=== PATIENT | female | born 1935 | race Caucasian/White ===

== ENCOUNTER 2016-07-22 16:32 | Emergency (ER) | payer MEDICARE ==
[~2016-07-22] VITALS: Ht 162.6 cm; Wt 54.4 kg
[~2016-07-22 16:32] MED LIST: ASP325T PO; ATR20T PO; CALC-149 PO; DICL100G20 TOP; ENAL10TA PO; METO25TA2 PO; MTF500T PO; NEBI2.5T5 PO; NIAC250T17 PO; OMEG1CAP51 PO; TRM50T PO
--- NOTE | 2016-07-22 17:10 | ED General ---
General Chief Complaint: Cardiac/General Problems Stated Complaint: ELEVATED BLOOD PRESSURE Nursing Triage Note: patient reports hypertension and not feeling quite right. patient reports having a headache earlier in the afternoon Nursing Sepsis Screen: No Definite Risk Source of Information: Patient, Family Exam Limitations: Other (hard of hearing) History of Present Illness Time Seen by Provider: 16:50 Initial Comments Reports that earlier today she had an episode while at [facility] of having difficulty with speech. This was brief in did not last more than several minutes but she had a mild headache afterwards. She called her provider who told her to go to the ER. She ended up going to [facility] urgent care where they checked her blood pressure and found it to be high. Patient has known hypertension and has taken her meds as directed. She denies persistent speech problems or weakness. She has an appointment with her doctor in the morning (Dr. Camp). Doesn't report having an episode like this before. Timing/Duration: 4-6 Hours, Resolved Prior to Arrival, Changing Over Time, Gone Now Severity: Mild Associated Systoms: No Chest Pain, No Cough, No Fever/Chills, Headaches ( frontal across both eyes), No Nausea/Vomiting, No Shortness of Air, No Weakness Allergies and Home Medications Allergies Coded Allergies: No Known Drug Allergies (Unverified , 04/25/11) Home Medications Aspirin 325 Mg Tab, 325 MG PO DAILY, (Reported) Atorvastatin 20 Mg Tablet, 1 EACH PO HS, (Reported) 1/2 TAB DAILY Diclofenac Sod 100 Gm Gel, 400 GM TOP TID for 10 Days Prescribed by: TO SIMPSON on 09/23/131742 Enalapril Maleate 10 Mg Tablet, 10 MG PO BID, (Reported) Metformin Hcl 500 Mg Tablet, 0.5 EACH PO HS, (Reported) Nebivolol Hcl 2.5 Mg Tablet, 1 EACH PO DAILY, (Reported) Niacin 250 Mg Tablet, 500 MG PO D, (Reported) [place]-3 Fatty Acids/Fish Oil 1 Each Capsule, 1 EACH PO DAILY, (Reported) Tramadol Hcl 50 Mg Tab, 50 MG PO Q4-6HR PRN for PAIN, #20 FOR PAIN Prescribed by: TO SIMPSON on 09/23/131742 Constitutional: see HPI, No chills, No fever, No weakness EENTM: see HPI, No blurred vision, No double vision, No eye pain, No tearing, No vision loss Respiratory: No cough, short of breath, No wheezing Cardiovascular: see HPI, No chest pain, No edema Gastrointestinal: No abdominal pain, No nausea, No vomiting Genitourinary: no symptoms reported Musculoskeletal: no symptoms reported Psychiatric/Neurological: See HPI All Other Systems Reviewed Negative Unless Noted: Yes Past Ohynwut-Uasjtw-Mreddh Hx Patient Social History Alcohol Use: Denies Use Recreational Drug Use: No Smoking Status: Never a Smoker Recent Foreign Travel: No Contact w/Someone Who Travel: No Recent Infectious Disease Expo: No Recent Hopitalizations: No Immunizations Up To Date Tetanus Booster (TDap): Unknown Surgeries HX Surgeries: No Respiratory Hx Respiratory Disorders: No Cardiovascular Hx Cardiac Disorders: Yes Cardiac Disorders: Hypertension Gastrointestinal Hx Gastrointestinal Disorders: No Musculoskeletal Hx Musculoskeletal Disorders: No Endocrine Hx Endocrine Disorders: Yes Endocrine Disorders: Diabetes, Non-Insulin dep HEENT HX ENT Disorders: No Cancer Hx Cancer: No Psychosocial Hx Psychiatric Problems: No Integumentary HX Skin/Integumentary Disorder: No Blood Transfusions Hx Blood Disorders: No Reviewed Nursing Assessment Reviewed/Agree w Nursing PMH: Yes Family Medical History Significant Family History: Heart Disease, Hypertension Physical Exam Vital Signs Vital Sign - Last 12Hours 07/22/16 16:35 Temp 98.2 Pulse 73 Resp 18 B/P (MAP) 194/86 Pulse Ox 96 O2 Delivery Room Air Capillary Refill : Less Than 3 Seconds General Appearance: No Apparent Distress, WD/WN HEENT: PERRL/EOMI, Normal ENT Inspection, Pharynx Normal Neck: Non Tender, Supple Respiratory: Lungs Clear, Normal Breath Sounds Cardiovascular: Regular Rate, Rhythm, No Murmur Gastrointestinal: Non Tender, Soft Extremity: Normal Inspection, Normal Range of Motion, Non Tender, No Pedal Edema Neurologic/Psychiatric: Alert, Oriented x3, No Motor/Sensory Deficits, Normal 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, 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 Norm as Tested Skin: Normal Color, Warm/Dry Progress/Results/Core Measures Results/Orders Lab Results Laboratory Tests Test 07/22/16 17:00 Range/Units White Blood Count 4.8 4.3-11.0 10^3/uL Red Blood Count 4.15 L 4.35-5.85 10^6/uL Hemoglobin 12.8 11.5-16.0 G/DL Hematocrit 37 35-52 % Mean Corpuscular Volume 88 80-99 FL Mean Corpuscular Hemoglobin 31 25-34 PG Mean Corpuscular Hemoglobin Concent 35 32-36 G/DL Red Cell Distribution Width 12.9 10.0-14.5 % Platelet Count 204 130-400 10^3/uL Mean Platelet Volume 9.7 7.4-10.4 FL Neutrophils (%) (Auto) 55 42-75 % Lymphocytes (%) (Auto) 31 12-44 % Monocytes (%) (Auto) 11 0-12 % Eosinophils (%) (Auto) 3 0-10 % Basophils (%) (Auto) 0 0-10 % Neutrophils # (Auto) 2.6 1.8-7.8 X 10^3 Lymphocytes # (Auto) 1.5 1.0-4.0 X 10^3 Monocytes # (Auto) 0.5 0.0-1.0 X 10^3 Eosinophils # (Auto) 0.1 0.0-0.3 10^3/uL Basophils # (Auto) 0.0 0.0-0.1 10^3/uL D-Dimer 0.44 0.00-0.49 UG/ML Sodium Level 133 L 135-145 MMOL/L Potassium Level 4.7 3.6-5.0 MMOL/L Chloride Level 98 98-107 MMOL/L Carbon Dioxide Level 26 21-32 MMOL/L Anion Gap 9 5-14 MMOL/L Blood Urea Nitrogen 16 7-18 MG/DL Creatinine 1.17 0.60-1.30 MG/DL Estimat Glomerular Filtration Rate 44 BUN/Creatinine Ratio 14 Glucose Level 96 70-105 MG/DL Calcium Level 10.4 H 8.5-10.1 MG/DL Total Bilirubin 0.7 0.1-1.0 MG/DL Aspartate Amino Transf (AST/SGOT) 23 5-34 U/L Alanine Aminotransferase (ALT/SGPT) 14 0-55 U/L Alkaline Phosphatase 83 40-136 U/L Troponin I < 0.30 <0.30 NG/ML Total Protein 7.2 6.4-8.2 G/DL Albumin 4.5 3.2-4.5 G/DL My Orders Orders - NIKIA BABCOCK MD Ct Head Wo-R/O Stroke (07/22/16 16:57) Cbc With Automated Diff (07/22/16 16:57) Comprehensive Metabolic Panel (07/22/16 16:57) Ekg Tracing (07/22/16 16:57) Chest Pa/Lat (2 View) (07/22/16 16:57) Fibrin Degradation Products (07/22/16 16:57) Troponin I (07/22/16 16:57) Vital Signs/I&O Vital Sign - Last 12Hours 07/22/16 16:35 Temp 98.2 Pulse 73 Resp 18 B/P (MAP) 194/86 Pulse Ox 96 O2 Delivery Room Air Blood Pressure Mean: 122 Progress Note : Progress Note Seen and evaluated. Labs, chest x-ray, EKG and CT head ordered. Patient is 0 on stroke scale and passed dysphagia screening. I did give her 1 dose of her home blood pressure medicine of amlodipine 5 mg by mouth 1. She takes this once daily normally. She is in no acute distress currently. We did discuss different options for evaluation and decided that we would do monitor evaluation currently to evaluate causes or concerns related to hypertension. Monitor patient. 1753: No acute findings. Patient's blood pressure has decreased to 153/59. She remains without any symptoms. She will follow-up with her doctor in the morning. Discharged home with return precautions. Patient verbalized understanding instructions and agreement with plan. ECG Initial ECG Impression Date: Jul 22, 2016 Initial ECG Impression Time: 17:35 Initial ECG Rate: 70 Initial ECG Rhythm: Normal Sinus Initial ECG Intervals: Normal Initial ECG Impression: Normal Initial ECG Comparisson: Unchanged Comment Sinus rhythm with normal axis. No evidence of ST elevation TX. Similar to previous of 04/25/11. Interpreted by me. Diagnostic Imaging Diagonstic Imaging: CT Plain Films/CT/US/NM/MRI: head Comments NAME: SULLY UGALDE [facility] REC#: [id number] PT STATUS: REG ER : 1935 PHYSICIAN: NIKIA BABCOCK MD ADMIT DATE: 07/22/16/ER Draft Date of Exam:07/22/16 CT HEAD WO-R/O STROKE INDICATION: Hypertension. TECHNIQUE: CT head without contrast. FINDINGS: The ventricles are normal in size, shape, and position. There are no masses or hemorrhages. There are no extra-axial fluid collections. IMPRESSION: Negative CT head. Dictated on workstation # [id number] Dict: 07/22/161731 Trans: 07/22/161733 [id number] Interpreted by: NIKIA ROMAN Electronically signed by: Jamie Imaging: Xray Plain Films/CT/US/NM/MRI: chest Comments [facility] [place], [place] NAME: SULLY UGALDE [facility] REC#: [id number] PT STATUS: REG ER : 1935 PHYSICIAN: NIKIA BABCOCK MD ADMIT DATE: 07/22/16/ER Draft Date of Exam:07/22/16 CHEST PA/LAT (2 VIEW) INDICATION: Hypertension. EXAMINATION: PA and lateral chest. FINDINGS: Heart size and pulmonary vascularity are normal. Lungs are clear. There are no effusions or pneumothoraces. IMPRESSION: Negative chest. Dictated on workstation # [id number] Dict: 07/22/161730 Trans: 07/22/161733 [id number] Interpreted by: NIKIA ROMAN Electronically signed by: Departure Impression Impression: Primary Impression: Uncontrolled hypertension Disposition: 01 HOME, SELF-CARE Condition: Improved Departure-Patient Inst. Decision time for Depature: 17:43 Referrals: ADALBERTO MAE MD (PCP/Family) Primary Care Physician Patient Instructions: High Blood Pressure (DC) Add. Discharge Instructions: All discharge instructions reviewed with patient and/or family. Voiced understanding. Keep appointment with your Dr. in the morning. Return for any problems with speech, facial droop, weakness, vision or balance problems, nausea, vomiting, chest pain or breathing problems or any other concerns as needed. Continue home medications as directed. Copy Copies To 1: SYDNEE CAMP MD, TIMOTHY D MD Jul 22, 2016 17:10
[2016-07-22 17:14] LABS: BASOPHILS % (AUTO) 0 % (0-10); EOSINOPHILS # (AUTO) 0.1 10^3/uL (0.0-0.3); EOSINOPHILS % (AUTO) 3 % (0-10); LYMPHOCYTES # (AUTO) 1.5 X 10^3 (1.0-4.0); LYMPHOCYTES % (AUTO) 31 % (12-44); MEAN CORPUSCULAR HEMOGLOBIN 31 PG (25-34); MEAN CORPUSCULAR HGB CONC 35 G/DL (32-36); MEAN CORPUSCULAR VOLUME 88 FL (80-99); MEAN PLATELET VOLUME 9.7 FL (7.4-10.4); MONOCYTES # (AUTO) 0.5 X 10^3 (0.0-1.0); MONOCYTES % (AUTO) 11 % (0-12); NEUTROPHILS # (AUTO) 2.6 X 10^3 (1.8-7.8); NEUTROPHILS % (AUTO) 55 % (42-75); PLATELET COUNT 204 10^3/uL (130-400); RED BLOOD COUNT 4.15 10^6/uL (4.35-5.85); RED CELL DISTRIBUTION WIDTH 12.9 % (10.0-14.5); WHITE BLOOD COUNT 4.8 10^3/uL (4.3-11.0)
[2016-07-22 17:33] LABS: ALANINE AMINOTRANSFERASE 14 U/L (0-55); ALBUMIN 4.5 G/DL (3.2-4.5); ANION GAP 9 MMOL/L (5-14); ASPARTATE AMINO TRANSFERASE 23 U/L (5-34); BILIRUBIN,TOTAL 0.7 MG/DL (0.1-1.0); BLOOD UREA NITROGEN 16 MG/DL (7-18); BUN/CREATININE RATIO 14; CALCIUM 10.4 MG/DL (8.5-10.1); CARBON DIOXIDE 26 MMOL/L (21-32); CHLORIDE 98 MMOL/L (98-107); CREATININE SERUM 1.17 MG/DL (0.60-1.30); GFR ESTIMATED 44; GLUCOSE 96 MG/DL (70-105); POTASSIUM 4.7 MMOL/L (3.6-5.0); SODIUM 133 MMOL/L (135-145); TOTAL PROTEIN 7.2 G/DL (6.4-8.2)
--- NOTE | 2016-07-22 17:34 | Diagnostic Imaging Report ---
INDICATION: Hypertension. TECHNIQUE: CT head without contrast. FINDINGS: The ventricles are normal in size, shape, and position. There are no masses or hemorrhages. There are no extra-axial fluid collections. IMPRESSION: Negative CT head. Dictated by: Dictated on workstation # [id number]
--- NOTE | 2016-07-22 17:35 | Diagnostic Imaging Report ---
INDICATION: Hypertension. EXAMINATION: PA and lateral chest. FINDINGS: Heart size and pulmonary vascularity are normal. Lungs are clear. There are no effusions or pneumothoraces. IMPRESSION: Negative chest. Dictated by: Dictated on workstation # [id number]
[2016-07-22 17:39] LABS: TROPONIN I < 0.30 NG/ML (<0.30)
[2016-07-22 17:56] VITALS: BP 153/59
--- OUTSIDE RECORDS SUMMARY | 2016-08-24 15:05 | XMS REPORT | Continuity of Care Document ---
Author Author [facility] Organization [facility] Address Unknown Phone Unavailable Care Team Providers Care Health Unit Supervisor Name Role Phone ADALBERTO MAE MD PP Insurance Providers Payer Name Policy Number Subscriber Name Relationship Vito Jimenez Supp [id number] Sully Solares Ozzy Self / Same As Patient Wps Medicare [id number] Sully Solares Ozzy Self / Same As Patient Advance Directives Directive Response Recorded Date Advance Directives Y 11/09/12 7:38am Organ Donor Y 11/09/12 7:38am Problems No Known Problems or Medical conditions. Social History History Response Recorded Date/Time Alcohol Use Denies Use 11/09/12 7:38am Recreational Drug Use N 11/09/12 7:38am Allergies, Adverse Reactions, Alerts Allergen Type Severity Reaction Last Updated No Known Drug Allergies 04/25/11 Medications Medication Dose Units Route Sig Qty Days [place]-3 Fatty Acids/Fish Oil (Fish Oil 1,000 Mg Softgel) 1 Each PO DAILY Metoprolol Tartrate (Metoprolol Tartrate 25 Mg) 1 Tab PO BID Niacin 500 Mg PO D Metformin HCl (Metformin 500 Mg) 0.5 Each PO HS Enalapril Maleate 10 Mg PO BID Aspirin (Aspirin 325 Mg Tab) 325 Mg PO DAILY Calcium Citrate/Vitamin D3 (Citracal + D Maximum Caplet) 1 Each PO DAILY Atorvastatin Calcium (Lipitor 20MG) 1 Each PO HS Response Recorded Date/Time Status not known Unknown Results No Known Relevant Diagnostic Tests, Laboratory Data and/or Discharge Summary. Encounters Encounter Location Date/Time Departed Emergency Room [facility] 7:30am
--- OUTSIDE RECORDS SUMMARY | 2016-08-24 15:05 | XMS REPORT | Continuity of Care Document ---
Author Author [facility] Organization [facility] Address Unknown Phone Unavailable Allergies Active Description Code Type Severity Reaction Onset Reported/Identified Relationship to Patient Clinical Status Yes No Known Drug Allergies [id number] Drug Allergy Unknown N/ A 04/25/2011 Medications Problems Date Dx Coded Attending Type Code Diagnosis Diagnosed By 04/25/2011 Ot 250.00 DIAB ANGEL WO COMPL, TYPE II OR UNSPEC TY 04/25/2011 Ot 272.4 HYPERLIPIDEMIA NEC/NOS 04/25/2011 Ot 276.8 HYPOPOTASSEMIA 04/25/2011 Ot 401.9 HYPERTENSION NOS 04/25/2011 Ot 719.46 JOINT PAIN-L/LEG 04/25/2011 Ot 780.2 SYNCOPE AND COLLAPSE 11/09/2012 NIKIA BABCOCK MD Ot 250.00 DIAB ANGEL WO COMPL, TYPE II OR UNSPEC TY 11/09/2012 NIKIA BABCOCK MD Ot 272.0 PURE HYPERCHOLESTEROLEM 11/09/2012 NIKIA BABCOCK MD Ot 276.51 DEHYDRATION 11/09/2012 NIKIA BABCOCK MD Ot 401.9 HYPERTENSION NOS 11/09/2012 NIKIA BABCOCK MD Ot 780.4 DIZZINESS AND GIDDINESS 11/09/2012 NIKIA BABCOCK MD Ot 787.03 VOMITING ALONE 11/09/2012 NIKIA BABCOCK MD Ot 787.91 DIARRHEA 11/09/2012 NIKIA BABCOCK MD Ot 881.00 OPEN WOUND OF FOREARM 11/09/2012 NIKIA BABCOCK MD Ot E888.9 FALL NOS 11/09/2012 NIKIA BABCOCK MD Ot V15.88 HISTORY OF FALL 11/09/2012 NIKIA BABCOCK MD Ot V58.66 LONG-TERM (CURRENT) USE OF ASPIRIN 11/09/2012 NIKIA BABCOCK MD Ot V58.69 OT MED,LT,CURRENT USE 09/23/2013 SIMPSON, PETER J PCA Ot 250.00 DIAB ANGEL WO COMPL, TYPE II OR UNSPEC TY 09/23/2013 TO SIMPSON PCA Ot 715.36 LOC OSTEOARTH NOS-L/LEG 09/23/2013 TO SIMPSON PCA Ot 719.46 JOINT PAIN-L/LEG 04/24/2015 CARL ESCOTO Ot I65.23 04/25/2015 CARL ESCOTO Ot I65.23 07/22/2016 Ot 719.45 JOINT PAIN-PELVIS 07/22/2016 Ot 397.0 TRICUSPID VALVE DISEASE 07/22/2016 Ot 401.9 HYPERTENSION NOS 07/22/2016 Ot 416.8 CHR PULMON HEART DIS NEC 07/22/2016 Ot 424.0 MITRAL VALVE DISORDER 07/22/2016 Ot 780.2 SYNCOPE AND COLLAPSE 07/22/2016 Ot 719.07 JOINT EFFUSION-ANKLE 07/22/2016 Ot 729.5 PAIN IN LIMB 07/22/2016 ADALBERTO MAE MD Ot 812.41 SUPRCONDYL FX HUMERUS-CL 07/22/2016 ADALBERTO MAE MD Ot E000.8 OTHER EXTERNAL CAUSE STATUS 07/22/2016 ADALBERTO MAE MD Ot E849.0 ACCIDENT IN HOME 07/22/2016 ADALBERTO MAE MD Ot E888.9 FALL NOS 07/22/2016 ADALBERTO MAE MD Ot 719.06 JOINT EFFUSION-L/LEG 07/22/2016 ADALBERTO MAE MD Ot 959.7 LOWER LEG INJURY NOS 07/22/2016 ADALBERTO MAE MD Ot E000.8 OTHER EXTERNAL CAUSE STATUS 07/22/2016 ADALBERTO MAE MD Ot E849.0 ACCIDENT IN HOME 07/22/2016 ADALBERTO MAE MD Ot E888.9 FALL NOS 07/22/2016 ADALBERTO MAE MD Ot 719.06 JOINT EFFUSION-L/LEG 07/22/2016 ADALBERTO MAE MD Ot 727.51 POPLITEAL SYNOVIAL CYST 07/22/2016 ADALBERTO MAE MD Ot 822.0 FRACTURE PATELLA-CLOSED 07/22/2016 ADALBERTO MAE MD Ot E000.8 OTHER EXTERNAL CAUSE STATUS 07/22/2016 ADALBERTO MAE MD Ot E888.9 FALL NOS 07/22/2016 BOBO METZGER MD Ot 250.00 DIAB ANGEL WO COMPL, TYPE II OR UNSPEC TY 07/22/2016 BOBO METZGER MD Ot 397.0 TRICUSPID VALVE DISEASE 07/22/2016 BOBO METZGER MD Ot 401.9 HYPERTENSION NOS 07/22/2016 BOBO METZGER MD Ot 424.0 MITRAL VALVE DISORDER 07/22/2016 BOBO METZGER MD Ot 780.2 SYNCOPE AND COLLAPSE 07/22/2016 BOBO METZGER MD Ot 401.9 HYPERTENSION NOS 07/22/2016 BOBO METZGER MD, Ot 780.2 SYNCOPE AND COLLAPSE 07/22/2016 CARL ESCOTO Ot 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 07/23/2016 NIKIA BABCOCK MD, Ot E11.9 TYPE 2 DIABETES MELLITUS WITHOUT COMPLIC 07/23/2016 NIKIA BABCOCK MD, Ot I16.0 HYPERTENSIVE URGENCY 07/23/2016 NIKIA BABCOCK MD, Ot Z79.84 PET COUNSELOR (CURRENT) USE OF ORAL HYPOGLYC 07/23/2016 NIKIA BABCOCK MD, Ot Z79.899 OTHER PET COUNSELOR (CURRENT) DRUG THERAPY Procedures Results Test Result Range Complete blood count (CBC) with automated white blood cell (WBC) differential - 07/22/16 17:00 Blood leukocytes automated count (number/volume) 4.8 10*3/ uL 4.3-11.0 Blood erythrocytes automated count (number/volume) 4.15 10*6 /uL 4.35-5.85 Venous blood hemoglobin measurement (mass/volume) 12.8 g/dL 11.5-16.0 Blood hematocrit (volume fraction) 37 % 35-52 Automated erythrocyte mean corpuscular volume 88 [foz_us] 80-99 Automated erythrocyte mean corpuscular hemoglobin (mass per erythrocyte) 31 pg 25-34 Automated erythrocyte mean corpuscular hemoglobin concentration measurement ( mass/volume) 35 g/dL 32-36 Automated erythrocyte distribution width ratio 12.9 % 10.0-14.5 Automated blood platelet count (count/volume) 204 10*3/uL 130-400 Automated blood platelet mean volume measurement 9.7 [foz_us ] 7.4-10.4 Automated blood neutrophils/100 leukocytes 55 % 42-75 Automated blood lymphocytes/100 leukocytes 31 % 12-44 Blood monocytes/100 leukocytes 11 % 0-12 Automated blood eosinophils/100 leukocytes 3 % 0-10 Automated blood basophils/100 leukocytes 0 % 0-10 Blood neutrophils automated count (number/volume) 2.6 10*3 1.8-7.8 Blood lymphocytes automated count (number/volume) 1.5 10*3 1.0-4.0 Blood monocytes automated count (number/volume) 0.5 10*3 0.0-1.0 Automated eosinophil count 0.1 10*3/uL 0.0-0.3 Automated blood basophil count (count/volume) 0.0 10*3/uL 0.0-0.1 Fibrin D-dimer FEU measurement in platelet poor plasma (mass/volume) - 17:00 Fibrin D-dimer FEU measurement in platelet poor plasma (mass/volume) 0.44 ug/mL 0.00-0.49 Comprehensive metabolic panel - 07/22/16 17:00 Serum or plasma sodium measurement (moles/volume) 133 mmol/ L 135-145 Serum or plasma potassium measurement (moles/volume) 4.7 mmol/L 3.6-5.0 Serum or plasma chloride measurement (moles/volume) 98 mmol/ L 98-107 Carbon dioxide 26 mmol/L 21-32 Serum or plasma anion gap determination (moles/volume) 9 mmol/L 5-14 Serum or plasma urea nitrogen measurement (mass/volume) 16 mg/dL 7-18 Serum or plasma creatinine measurement (mass/volume) 1.17 mg /dL 0.60-1.30 Serum or plasma urea nitrogen/creatinine mass ratio 14 NRG Serum or plasma creatinine measurement with calculation of estimated glomerular filtration rate 44 NRG Serum or plasma glucose measurement (mass/volume) 96 mg/dL 70-105 Serum or plasma calcium measurement (mass/volume) 10.4 mg/ dL 8.5-10.1 Serum or plasma total bilirubin measurement (mass/volume) 0.7 mg/dL 0.1-1.0 Serum or plasma alkaline phosphatase measurement (enzymatic activity/volume) 83 U/L 40-136 Serum or plasma aspartate aminotransferase measurement (enzymatic activity/ volume) 23 U/L 5-34 Serum or plasma alanine aminotransferase measurement (enzymatic activity/volume ) 14 U/L 0-55 Serum or plasma protein measurement (mass/volume) 7.2 g/dL 6.4-8.2 Serum or plasma albumin measurement (mass/volume) 4.5 g/dL 3.2-4.5 Serum or plasma troponin i.cardiac measurement (mass/volume) - 07/22/16 17:00 Serum or plasma troponin i.cardiac measurement (mass/volume) < ng/mL <0.30 Encounters ACCT No. Visit Date/Time Discharge Status Pt. Type Provider Facility Loc./Unit Complaint [id number] 07/22/2016 16:33:00 2016 17:57:00 DIS Outpatient NIKIA BABCOCK MD [facility] ER ELEVATED BLOOD PRESSURE [id number] 09/23/2013 16:33:00 2013 18:30:00 DIS Emergency TO SIMPSON APRN [facility] ER R KNEE PAIN [id number] 03/09/2013 07:35:00 2012 23:59:59 CLS Outpatient BOBO METZGER MD [facility] RAD SYNCOPE,DM,HTN [id number] 03/03/2013 09:17:00 2012 23:59:59 CLS Outpatient BOBO METZGER MD [facility] CARD SYNCOPE,DM,HTN [id number] 01/19/2013 14:36:00 2012 23:59:59 CLS Outpatient ADALBERTO MAE MD [facility] RAD LT KNEE PAIN,FALL [id number] 01/19/2013 11:05:00 2012 23:59:59 CLS Outpatient ADALBERTO MAE MD [facility] RAD FALL,PAIN AND SWELLING [id number] 01/07/2013 09:48:00 2012 23:59:59 CLS Outpatient ADALBERTO MAE MD [facility] RAD FALL,RT ARM PAIN AND RT ARM SWELLING [id number] 11/09/2012 07:30:00 2012 09:49:00 DIS Emergency NIKIA BABCOCK MD [facility] ER FALL VOMITING/DIZZINESS [id number] 03/30/2015 11:54:00 ACT Outpatient CARL PECK [facility] RAD STENOSIS, HTN,HLP [id number] 06/22/2012 10:25:00 Document Registration [id number] 07/29/2011 09:42:00 Document Registration [id number] 05/01/2011 12:13:00 Document Registration [id number] 04/25/2011 08:04:00 Document Registration
== END 2016-07-22 17:57 | disposition home or self-care (01) ==
LOC: EDUNIT# 16:32 → ER 16:33
DX: I16.0 Hypertensive urgency (principal); E11.9 Type 2 diabetes mellitus without complications; Z79.84 Long term (current) use of oral hypoglycemic drugs; Z79.899 Other long term (current) drug therapy
CPT/HCPCS: 36415; 70450; 71020; 80053; 84484; 85025; 85379; 93005

== ENCOUNTER → 2016-09-22 | Outpatient (CLI) | payer MEDICARE | LOC: CARD 12:46 | PROVIDERS: ATTEND Physician Assistant | DX: I65.23 Occlusion and stenosis of bilateral carotid arteries (principal); I10 Essential (primary) hypertension; E78.2 Mixed hyperlipidemia; I49.5 Sick sinus syndrome | CPT/HCPCS: 93306 ==

== ENCOUNTER 2017-04-08 07:20 | Observation (INO) | payer MEDICARE, OTHER ==
[~2017-04-08] VITALS: Ht 160 cm; Wt 55.5 kg
--- OUTSIDE RECORDS SUMMARY | 2017-04-08 07:26 | XMS REPORT | Continuity of Care Document ---
Author Author [facility] Organization [facility] Address Unknown Phone Unavailable Allergies Active Description Code Type Severity Reaction Onset Reported/Identified Relationship to Patient Clinical Status Yes No Known Drug Allergies [id number] Drug Allergy Unknown N/A 04/25/2011 Medications There is no data. Problems Date Dx Coded Attending Type Code Diagnosis Diagnosed By 04/25/2011 Ot 250.00 DIAB ANGEL WO COMPL, TYPE II OR UNSPEC TY 04/25/2011 Ot 272.4 HYPERLIPIDEMIA NEC/NOS 04/25/2011 Ot 276.8 HYPOPOTASSEMIA 04/25/2011 Ot 401.9 HYPERTENSION NOS 04/25/2011 Ot 719.46 JOINT PAIN-L /LEG 04/25/2011 Ot 780.2 SYNCOPE AND COLLAPSE 11/09/2012 [...] MD Ot V58.69 OT MED,LT,CURRENT USE 09/23/2013 TO SIMPSON MENT[facility] HEALTH PROFESSIONAL Ot 250.00 DIAB ANGEL WO COMPL, TYPE II OR UNSPEC TY 09/23/2013 TO SIMPSON MENTAL HEALTH PROFESSIONAL Ot 715.36 LOC OSTEOARTH NOS-L/LEG 09/23/2013 TO SIMPSON MENTAL HEALTH PROFESSIONAL Ot 719.46 JOINT PAIN-L/LEG 04/24/2015 CARL ESCOTO Ot I65.23 04/25/2015 CARL ESCOTO Ot I65.23 07/22/2016 NIKIA BABCOCK MD Ot E11.9 TYPE 2 DIABETES MELLITUS WITHOUT COMPLIC 07/22/2016 SADIQ FELIPE, NIKIA Burnett Ot I16.0 HYPERTENSIVE URGENCY 07/22/2016 NIKIA BABCOCK MD Ot Z79.84 LAMINATION SPINNER (CURRENT) USE OF ORAL HYPOGLYC 07/22/2016 NIKIA BABCOCK MD Ot Z79.899 OTHER SKILLED NURSING (CURRENT) DRUG THERAPY 07/22/2016 Ot 719.45 JOINT PAIN- PELVIS 07/22/2016 Ot 397.0 TRICUSPID VALVE DISEASE 07/22/2016 [...] HYPERTENSION NOS 07/22/2016 BOBO METZGER MD Ot 780.2 SYNCOPE AND COLLAPSE 07/22/2016 CARL ESCOTO Ot 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 Results Test Result Range Complete blood count (CBC) with automated white blood cell (WBC) differential - 07/22/16 17:00 Blood leukocytes automated count (number/volume) 4.8 10*3/uL 4.3-11.0 Blood erythrocytes automated count (number/volume) 4.15 10*6/uL 4.35-5.85 Venous blood hemoglobin measurement (mass/volume) 12.8 [...] Automated blood platelet mean volume measurement 9.7 [foz_us] 7.4-10.4 Automated blood neutrophils/100 leukocytes 55 % [...] Serum or plasma sodium measurement (moles/volume) 133 mmol/L 135-145 Serum or plasma potassium measurement (moles/volume) 4.7 mmol/L 3.6-5.0 Serum or plasma chloride measurement (moles/volume) 98 mmol/L 98-107 Carbon dioxide 26 mmol/L 21-32 Serum or plasma anion gap determination (moles/volume) 9 mmol/L 5-14 Serum or plasma urea nitrogen measurement (mass/volume) 16 mg/dL 7-18 Serum or plasma creatinine measurement (mass/volume) 1.17 mg/dL 0.60-1.30 Serum or plasma urea nitrogen/creatinine mass ratio 14 NRG Serum or plasma creatinine measurement with calculation of estimated glomerular filtration rate 44 NRG Serum or plasma glucose measurement (mass/volume) 96 mg/dL 70-105 Serum or plasma calcium measurement (mass/volume) 10.4 mg/dL 8.5-10.1 Serum or plasma total bilirubin measurement [...] or plasma troponin i.cardiac measurement (mass/volume) < ng/ mL <0.30 Encounters ACCT No. Visit Date/Time Discharge Status Pt. Type Provider Facility Loc./Unit Complaint [id number] 09/22/2016 12:46:00 09/22/2016 23:59:59 CLS Outpatient CARL ESCOTO [facility] CARD I65.23,I10, E78.2 [id number] 07/22/2016 16:33:00 07/22/2016 17:57:00 DIS Emergency NIKIA BABCOCK MD [facility] ER ELEVATED BLOOD PRESSURE [id number] 03/30/2015 11:54:00 03/30/2015 23:59:59 CLS Outpatient CARL ESCOTO [facility] RAD STENOSIS, HTN ,HLP [id number] 09/23/2013 16:33:00 09/23/2013 18:30:00 DIS Emergency TO SIMPSON APRN [facility] ER R KNEE PAIN [id number] 03/09/2013 07:35:00 03/09/2013 23:59:59 CLS Outpatient BOBO METZGER MD [facility] RAD SYNCOPE,DM,HTN [id number] 03/03/2013 09:17:00 03/03/2013 23:59:59 CLS Outpatient BOBO METZGER MD [facility] CARD SYNCOPE,DM,HTN [id number] 01/19/2013 14:36:00 01/19/2013 23:59:59 CLS Outpatient ADALBERTO MAE MD [facility] RAD LT KNEE PAIN,FALL [id number] 01/19/2013 11:05:00 01/19/2013 23:59:59 CLS Outpatient ADALBERTO MAE MD [facility] RAD FALL,PAIN AND SWELLING [id number] 01/07/2013 09:48:00 01/07/2013 23:59:59 CLS Outpatient ADALBERTO MAE MD [facility] RAD FALL,RT ARM PAIN AND RT ARM SWELLING [id number] 11/09/2012 07:30:00 11/09/2012 09:49:00 DIS Emergency NIKIA BABCOCK MD [facility] ER FALL VOMITING/ DIZZINESS [id number] 04/08/2017 07:23:00 ACT Emergency NIKIA BABCOCK MD [facility] ER ABDOMINAL PAIN [id number] 06/22/2012 10:25:00 Document Registration [id number] 07/29/2011 09:42:00 Document Registration [id number] 05/01/2011 12:13:00 Document Registration [id number] 04/25/2011 08:04:00 Document Registration
[2017-04-08] MEDS ORDERED: NS IV 1000 ML 1,000 ML IV ONE (08:05)
[2017-04-08] MEDS ORDERED: fentaNYL INJECTION 100 MCG/2 ML AMP IVP STA ×2 (08:05→10:37)
[2017-04-08] MEDS ORDERED: fentaNYL INJECTION 100 MCG/2 ML AMP ONE (08:10)
[2017-04-08 08:16] LABS: BILIRUBIN,URINE NEGATIVE (NEGATIVE); KETONES,URINE NEGATIVE (NEGATIVE); LEUKOCYTE ESTERASE ,URINE 1+ (NEGATIVE); NITRITE,URINE NEGATIVE (NEGATIVE); PH,URINE 7 (5-9); PROTEIN,URINE NEGATIVE (NEGATIVE); UROBILINOGEN,URINE NORMAL (NORMAL)
--- NOTE | 2017-04-08 08:18 | ED Abdominal Pain ---
General Chief Complaint: Abdominal/GI Problems Stated Complaint: ABDOMINAL PAIN Nursing Triage Note: PT STATES SHE HAS BEEN CONSTIPATED FR A FEW DAYS, HAS TAKEN SOME LAXATIVES, ABD PAIN STARTED ABOUT 0400 THIS A.M. Sepsis Screen: No Definite Risk Source of Information: Patient Exam Limitations: No Limitations History of Present Illness Time Seen By Provider: 07:56 Initial Comments Here with report of abdominal pain over the last several days. She is felt constipated and has taken laxatives on Thursday night and Thursday night. She did have a reasonable bowel movement yesterday. She is having cramping all over abdominal pain that comes and goes and can be quite severe at times. This was associated with nausea this morning but no vomiting. Denies current bowel movement. States that the pain is moving around her abdomen in waves. Timing/Duration: 2-3 Days Severity/Quality: Moderate, Severe, Aching, Cramping Location: Generalized Abdomen Radiation: No Radiation Activities at Onset: None Modifying Factors: Improves With Defecating, Improves With Resting Associated Symptoms: No Back Pain, No Chest Pain, No Fever/Chills, Nausea/ Vomiting, No Shortness of Air, No Swelling/Mass in Abdomen, No Weakness Allergies and Home Medications Allergies Coded Allergies: No Known Drug Allergies (Unverified , 04/25/11) Home Medications Aspirin 325 Mg Tab, 325 MG PO DAILY, (Reported) Atorvastatin 20 Mg Tablet, 1 EACH PO HS, (Reported) 1/2 TAB DAILY Diclofenac Sod 100 Gm Gel, 400 GM TOP TID for 10 Days Prescribed by: TO SIMPSON on 09/23/131742 Enalapril Maleate 10 Mg Tablet, 10 MG PO BID, (Reported) Metformin Hcl 500 Mg Tablet, 0.5 EACH PO HS, (Reported) Nebivolol Hcl 2.5 Mg Tablet, 1 EACH PO DAILY, (Reported) Niacin 250 Mg Tablet, 500 MG PO D, (Reported) Walker-3 Fatty Acids/Fish Oil 1 Each Capsule, 1 EACH PO DAILY, (Reported) Tramadol Hcl 50 Mg Tab, 50 MG PO Q4-6HR PRN for PAIN, #20 FOR PAIN Prescribed by: TO SIMPSON on 09/23/131742 Review of Systems Constitutional: see HPI, No chills, No fever EENTM: No Symptoms Reported Respiratory: No Symptoms Reported Cardiovascular: No Symptoms Reported Gastrointestinal: See HPI, Abdominal Pain, Nausea, Denies Vomiting Genitourinary: No Symptoms Reported Musculoskeletal: no symptoms reported, No back pain Skin: no symptoms reported Psychiatric/Neurological: No Symptoms Reported All Other Systems Reviewed Negative Unless Noted: Yes Past Hsulqgj-Fagejw-Roqpll Hx Patient Social History Alcohol Use: Denies Use Recreational Drug Use: No Smoking Status: Never a Smoker Recent Foreign Travel: No Contact w/Someone Who Travel: No Recent Infectious Disease Expo: No Recent Hopitalizations: No Immunizations Up To Date Tetanus Booster (TDap): Unknown Date of Pneumonia Vaccine: Jan 21, 2017 Seasonal Allergies Seasonal Allergies: No Surgeries History of Surgeries: No Respiratory History of Respiratory Disorde: No Cardiovascular History of Cardiac Disorders: Yes Cardiac Disorders: Hypertension Neurological History of Neurological Disord: No Reproductive System : No Genitourinary History of Genitourinary Disor: No Gastrointestinal History of Gastrointestinal Di: No Musculoskeletal History of Musculoskeletal Dis: No Endocrine History of Endocrine Disorders: Yes (DIET CONTROLLED) Endocrine Disorders: Diabetes, Non-Insulin dep Cancer History of Cancer: No Psychosocial History of Psychiatric Problem: No Integumentary History of Skin or Integumenta: No Blood Transfusions History of Blood Disorders: No Reviewed Nursing Assessment Reviewed/Agree w Nursing PMH: Yes Family Medical History Significant Family History: Heart Disease, Hypertension Physical Exam Vital Signs VS - Last 72 Hours, by Label 04/08/17 04/08/17 08:00 08:14 Temp 98.2 98.2 Pulse 63 Resp 22 B/P (MAP) 144/67 (92) Pulse Ox 100 O2 Delivery Room Air Capillary Refill : Less Than 3 Seconds General Appearance: WD/WN, no apparent distress HEENT: PERRL/EOMI, pharynx normal Neck: full range of motion, supple Respiratory: lungs clear, normal breath sounds Cardiovascular: regular rate, rhythm, no murmur Gastrointestinal: soft, abnormal bowel sounds (hypoactive), No guarding, No rebound, tenderness (diffusely) Extremities: non-tender, normal inspection Back: normal inspection, no CVA tenderness, no vertebral tenderness Neurologic/Psychiatric: alert, oriented x 3 Skin: normal color, warm/dry Progress/Results/Core Measures Results/Orders Lab Results Laboratory Tests Test 04/08/17 07:30 04/08/17 08:15 Range/Units Urine Color YELLOW Urine Clarity CLEAR Urine pH 7 5-9 Urine Specific [place] 1.010 L 1.016-1.022 Urine Protein NEGATIVE NEGATIVE Urine Glucose (UA) NEGATIVE NEGATIVE Urine Ketones NEGATIVE NEGATIVE Urine Nitrite NEGATIVE NEGATIVE Urine Bilirubin NEGATIVE NEGATIVE Urine Urobilinogen NORMAL NORMAL MG/DL Urine Leukocyte Esterase 1+ H NEGATIVE Urine RBC (Auto) NEGATIVE NEGATIVE Urine RBC NONE /HPF Urine WBC NONE /HPF Urine Squamous Epithelial Cells RARE /HPF Urine Crystals NONE /LPF Urine Bacteria TRACE /HPF Urine Casts NONE /LPF Urine Mucus NEGATIVE /LPF Urine Culture Indicated NO White Blood Count 5.6 4.3-11.0 10^3/uL Red Blood Count 4.19 L 4.35-5.85 10^6/uL Hemoglobin 12.9 11.5-16.0 G/DL Hematocrit 37 35-52 % Mean Corpuscular Volume 89 80-99 FL Mean Corpuscular Hemoglobin 31 25-34 PG Mean Corpuscular Hemoglobin Concent 35 32-36 G/DL Red Cell Distribution Width 12.7 10.0-14.5 % Platelet Count 219 130-400 10^3/uL Mean Platelet Volume 9.7 7.4-10.4 FL Neutrophils (%) (Auto) 67 42-75 % Lymphocytes (%) (Auto) 24 12-44 % Monocytes (%) (Auto) 7 0-12 % Eosinophils (%) (Auto) 2 0-10 % Basophils (%) (Auto) 0 0-10 % Neutrophils # (Auto) 3.7 1.8-7.8 X 10^3 Lymphocytes # (Auto) 1.3 1.0-4.0 X 10^3 Monocytes # (Auto) 0.4 0.0-1.0 X 10^3 Eosinophils # (Auto) 0.1 0.0-0.3 10^3/uL Basophils # (Auto) 0.0 0.0-0.1 10^3/uL Sodium Level 139 135-145 MMOL/L Potassium Level 4.3 3.6-5.0 MMOL/L Chloride Level 105 98-107 MMOL/L Carbon Dioxide Level 24 21-32 MMOL/L Anion Gap 10 5-14 MMOL/L Blood Urea Nitrogen 19 H 7-18 MG/DL Creatinine 1.19 0.60-1.30 MG/DL Estimat Glomerular Filtration Rate 43 BUN/Creatinine Ratio 16 Glucose Level 155 H 70-105 MG/DL Calcium Level 10.4 H 8.5-10.1 MG/DL Total Bilirubin 0.5 0.1-1.0 MG/DL Aspartate Amino Transf (AST/SGOT) 17 5-34 U/L Alanine Aminotransferase (ALT/SGPT) 17 0-55 U/L Alkaline Phosphatase 77 40-136 U/L Total Protein 6.7 6.4-8.2 GM/DL Albumin 4.2 3.2-4.5 GM/DL Lipase 15 8-78 U/L My Orders Orders - NIKIA BABCOCK MD Cbc With Automated Diff (04/08/17 08:05) Comprehensive Metabolic Panel (04/08/17 08:05) Lipase (04/08/17 08:05) Ua Culture If Indicated (04/08/17 08:05) Saline Lock/Iv-Start (04/08/17 08:05) Ns Iv 1000 Ml (Sodium Chloride 0.9%) (04/08/17 08:05) Fentanyl Injection (Sublimaze Injection (04/08/17 08:05) Fentanyl Injection (Sublimaze Injection (04/08/17 08:10) Ondansetron Injection (Zofran Injectio (04/08/17 09:00) Ct Abdomen/Pelvis W (04/08/17 08:50) Iohexol Injection (Omnipaque 350 Mg/Ml 1 (04/08/17 09:15) Ns (Ivpb) (Sodium Chloride 0.9% Ivpb Bag (04/08/17 09:15) Fentanyl Injection (Sublimaze Injection (04/08/17 10:37) Medications Given in ED Current Medications Medications Dose Ordered Sig/Divine Route Start Time Stop Time Status Last Admin Dose Admin Iohexol 75 ml ONCE ONCE IV 04/08/17 09:15 04/08/17 09:16 DC 04/08/17 09:19 75 ML Ondansetron HCl 4 mg ONCE ONCE IVP 04/08/17 09:00 04/08/17 09:01 DC 04/08/17 08:55 4 MG Sodium Chloride 100 ml ONCE ONCE IV 04/08/17 09:15 04/08/17 09:16 DC 04/08/17 09:19 80 ML Sodium Chloride 1,000 ml @ 0 mls/hr Q0M ONCE IV 04/08/17 08:05 04/08/17 08:10 DC 04/08/17 08:17 1,000 MLS/HR Vital Signs/I&O Vital Sign - Last 12Hours 04/08/17 04/08/17 08:00 08:14 Temp 98.2 98.2 Pulse 63 Resp 22 B/P (MAP) 144/67 (92) Pulse Ox 100 O2 Delivery Room Air Blood Pressure Mean: 92 Progress Note : Progress Note Seen and evaluated. IV, labs and UA ordered. Normal saline 1 L bolus. Fentanyl 50 g IV ordered. Monitor patient. CT abdomen and pelvis ordered for persistent pain. Patient has lower GFR but she is being given fluid. We will continue to monitor this. 1023: CT results noted. I did discuss this with Dr. Reed. She accepts patient for admission, observation status and will continue hydration. I also discussed the uterine mass. Findings and concerns were discussed with patient and family. Admit, observation status. Patient complains of continued pain. Fentanyl 50 g IV repeated. She also received 4 mg of Zofran earlier for nausea at about the time of the CT scan. This did improve her nausea and vomiting. Diagnostic Imaging Diagonstic Imaging: CT Plain Films/CT/US/NM/MRI: abdomen, pelvis Comments [facility]. [place], [place] NAME: [facility] REC#: [id number] PT STATUS: REG ER : 1935 PHYSICIAN: NIKIA BABCOCK MD ADMIT DATE: 04/08/17/ER Draft Date of Exam:04/08/17 CT ABDOMEN/PELVIS W PROCEDURE: CT abdomen and pelvis with contrast. TECHNIQUE: Multiple contiguous axial images were obtained through the abdomen and pelvis after administration of intravenous contrast. INDICATION: Abdominal pain. Nausea and vomiting. COMPARISON: None. FINDINGS: Included portions of the lung bases are clear. CT ABDOMEN: There is moderate abnormal thickening, hyperenhancement, and striation of the wall the distal small bowel primarily involving large portion of the ileum. There is also associated abnormal stranding of the mesentery. Small bowel loops, however, are nondistended. There is no evidence of pneumatosis, pneumoperitoneum, nor portal venous gas. There may be trace free fluid within the lower pelvis. There is no loculated fluid collection to suggest abscess. Normal appendix is identified. The kidneys, adrenal glands, spleen, and pancreas have a normal appearance. Benign-appearing cyst is noted within the subcapsular anterior margins of the left lobe of liver. Otherwise, the liver has a normal appearance as well. No abnormal mesenteric or retrotracheal adenopathy is seen. There is moderate calcified aortic and arterial atherosclerosis. Bony structures show no acute abnormalities. PELVIS: Urinary bladder is grossly unremarkable. Note is made of masslike enlargement of the left lateral margins of the uterus with heterogeneous enhancement. Area in question measures approximately 4.5 x 5.2. Again, there may be trace free fluid within the pelvis. There is no loculated air-fluid collection or free air. No abnormal lymph nodes are seen. Bony structures show no acute abnormalities. IMPRESSION: 1. Abnormal appearance to the distal small bowel and associated mesentery as described above. Findings are nonspecific, though can be seen with infectious or inflammatory enteritis. Ischemic enteritis is also considered, but felt to be less likely. 2. Trace amount of free fluid within the pelvis. Findings may be reactive and related to the above. 3. Abnormal masslike enlargement involving the left lateral margins of the uterus. Although findings can be seen with benign fibroadenoma, appearance should be considered atypical in a postmenopausal patient of this age. Underlying uterine malignancy cannot be excluded. Correlation with pelvic sonogram may be of benefit. Dictated on workstation # [id number] Dict: 04/08/17 0943 Trans: 04/08/17 [address] [facility] [id number] Interpreted by: DOMINGA ONEILL MD Electronically signed by: Departure Communication (Admissions) Time/Spoke to Admitting Phy: 10:23 Impression Impression: Primary Impression: Abdominal wall pain Additional Impression: Uterine mass Disposition: ADMITTED INPATIENT Condition: Stable Admissions Decision to Admit Reason: Admit from ER (General) Decision to Admit/Date: Apr 08, 2017 Time/Decision to Admit Time: 10:23 Departure-Patient Inst. Referrals: SYDNEE CAMP MD (PCP/Family) Primary Care Physician NIKIA BABCOCK MD Apr 08, 2017 08:18
[2017-04-08 08:25] LABS: BASOPHILS % (AUTO) 0 % (0-10); EOSINOPHILS # (AUTO) 0.1 10^3/uL (0.0-0.3); EOSINOPHILS % (AUTO) 2 % (0-10); LYMPHOCYTES # (AUTO) 1.3 X 10^3 (1.0-4.0); LYMPHOCYTES % (AUTO) 24 % (12-44); MEAN CORPUSCULAR HEMOGLOBIN 31 PG (25-34); MEAN CORPUSCULAR HGB CONC 35 G/DL (32-36); MEAN CORPUSCULAR VOLUME 89 FL (80-99); MEAN PLATELET VOLUME 9.7 FL (7.4-10.4); MONOCYTES # (AUTO) 0.4 X 10^3 (0.0-1.0); MONOCYTES % (AUTO) 7 % (0-12); NEUTROPHILS # (AUTO) 3.7 X 10^3 (1.8-7.8); NEUTROPHILS % (AUTO) 67 % (42-75); PLATELET COUNT 219 10^3/uL (130-400); RED BLOOD COUNT 4.19 10^6/uL (4.35-5.85); RED CELL DISTRIBUTION WIDTH 12.7 % (10.0-14.5); WHITE BLOOD COUNT 5.6 10^3/uL (4.3-11.0)
[2017-04-08 08:28] LABS: SQUAMOUS EPITHELIAL CELL,UR RARE /HPF
[2017-04-08 08:45] LABS: ALBUMIN 4.2 GM/DL (3.2-4.5); BILIRUBIN,TOTAL 0.5 MG/DL (0.1-1.0); CALCIUM 10.4 MG/DL (8.5-10.1); CREATININE SERUM 1.19 MG/DL (0.60-1.30); POTASSIUM 4.3 MMOL/L (3.6-5.0); TOTAL PROTEIN 6.7 GM/DL (6.4-8.2)
[2017-04-08] MEDS ORDERED: ONDANSETRON 4 MG/2 ML (SDV) Z0FRAN IVP ONE (09:00)
[2017-04-08] MEDS ORDERED: NS 100 ML (IVPB) BAG IV ONE (09:15)
[2017-04-08] MEDS ORDERED: IOHEXOL 350 MG/ML 100 ML (OMNIPAQUE 350) VIAL IV ONE (09:15)
--- NOTE | 2017-04-08 10:02 | Diagnostic Imaging Report ---
PROCEDURE: CT abdomen and pelvis with contrast. TECHNIQUE: Multiple contiguous axial images were obtained through the abdomen and pelvis after administration of intravenous contrast. INDICATION: Abdominal pain. Nausea and vomiting. COMPARISON: None. FINDINGS: Included portions of the lung bases are clear. CT ABDOMEN: There is moderate abnormal thickening, hyperenhancement, and striation of the wall the distal small bowel primarily involving large portion of the ileum. There is also associated abnormal stranding of the mesentery. Small bowel loops, however, are nondistended. There is no evidence of pneumatosis, pneumoperitoneum, nor portal venous gas. There may be trace free fluid within the lower pelvis. There is no loculated fluid collection to suggest abscess. Normal appendix is identified. The kidneys, adrenal glands, spleen, and pancreas have a normal appearance. Benign-appearing cyst is noted within the subcapsular anterior margins of the left lobe of liver. Otherwise, the liver has a normal appearance as well. No abnormal mesenteric or retrotracheal adenopathy is seen. There is moderate calcified aortic and arterial atherosclerosis. Bony structures show no acute abnormalities. PELVIS: Urinary bladder is grossly unremarkable. Note is made of masslike enlargement of the left lateral margins of the uterus with heterogeneous enhancement. Area in question measures approximately 4.5 x 5.2. Again, there may be trace free fluid within the pelvis. There is no loculated air-fluid collection or free air. No abnormal lymph nodes are seen. Bony structures show no acute abnormalities. IMPRESSION: 1. Abnormal appearance to the distal small bowel and associated mesentery as described above. Findings are nonspecific, though can be seen with infectious or inflammatory enteritis. Ischemic enteritis is also considered, but felt to be less likely. 2. Trace amount of free fluid within the pelvis. Findings may be reactive and related to the above. 3. Abnormal masslike enlargement involving the left lateral margins of the uterus. Although findings can be seen with benign fibroadenoma, appearance should be considered atypical in a postmenopausal patient of this age. Underlying uterine malignancy cannot be excluded. Correlation with pelvic sonogram may be of benefit. Dictated by: Dictated on workstation # [id number]
[2017-04-08 11:26] VITALS: BP 142/66
[2017-04-08] MEDS ORDERED: DICYCLOMINE 10 MG (BENTYL) CAP PO PRN (11:30)
[2017-04-08] MEDS ORDERED: ONDANSETRON 4 MG/2 ML (SDV) Z0FRAN IV PRN (11:30)
[2017-04-08] MEDS ORDERED: ANTACID SUSP 30 ML UDC (MYLANTA) PO PRN (11:30)
[2017-04-08] MEDS ORDERED: BENZONATATE 100 MG (TESSALON) CAPSULE PO PRN (11:30)
[2017-04-08] MEDS ORDERED: fentaNYL INJECTION 100 MCG/2 ML AMP IVP PRN (11:30)
[2017-04-08] MEDS ORDERED: PATIENT MAY USE OWN MEDS, ALL PO SCH (11:30)
[2017-04-08] MEDS ORDERED: ACETAMINOPHEN 325 MG TABLET/CAPLET (TYLENOL) PO PRN (11:45)
[2017-04-08] MEDS ORDERED: ENAL10TA PO (12:13)
[2017-04-08] MEDS ORDERED: AMLO5TAB2 PO (12:13)
[2017-04-08] MEDS ORDERED: CHOL20003 PO (12:17)
[2017-04-08] MEDS ORDERED: CYAN10006 PO (12:17)
[2017-04-08] MEDS ORDERED: NIAC500T24 PO (12:17)
[2017-04-08] MEDS ORDERED: OMEG-77 PO (12:17)
[2017-04-08] MEDS ORDERED: ATOR10TA66 PO (12:17)
[2017-04-08] MEDS ORDERED: ASPI325T32 PO (12:17)
[2017-04-08] MEDS ORDERED: TIMO5DRO5 OU (12:21)
[2017-04-08] MEDS: NS IV 1000 ML 1,000 ML IV SCH (12:22)
[2017-04-08] MEDS ORDERED: INFLUENZA TRIvalent 2017-2018 0.5 ML/45 MCG SYR IM ONE (14:00)
--- NOTE | 2017-04-08 15:41 | History & Physical-Hospitalist ---
HPI History of Present Illness: HPI/Chief Complaint Pt is an 81yoCF with a PMH of diet controlled DM, HLD, and HTN who presented to the ER with CC of abd pain. She had constipation a few days ago and started staking Levy Laxatives. She had a BM yesterday but then awoke this morning very severe cramping abd pain that radiated around her abdomen. Her pain continued to worsen which prompted her to seek evaluation in the ER. CT abd revealed inflammatory changes in the small bowel and a uterine mass. She received fentanyl which helped her pain but it quickly returned. She also because nauseate with the fentanyl though had no symptoms of nausea or vomiting prior to today. Date Seen 04/08/17 Time Seen by Provider: 11:00 Attending Physician Muriel Reed MD PCP Dyllan Sanchez MD Referring Physician Date of Admission Apr 08, 2017 at 10:26 Home Medications & Allergies Home Medications Reviewed patient Home Medication Reconciliation Form Allergies Allergies Coded Allergies metformin (Verified Adverse Reaction, Severe, CONFUSION, 04/08/17) Past Pgmvzdg-Tgkntt-Hsexin Hx Patient Social History Alcohol Use: Denies Use Recreational Drug Use: No Smoking Status: Never a Smoker Physical Abuse Screen: Yes Sexual Abuse: No Recent Foreign Travel: No Contact w/other who traveled: No Recent Hopitalizations: No Recent Infectious Disease Expo: No Immunizations Up To Date Tetanus Booster (TDap): Unknown Date of Pneumonia Vaccine: Jan 21, 2017 Seasonal Allergies Seasonal Allergies: No Surgeries No Respiratory No Cardiovascular Yes Hypertension Neurological No Reproductive System : No Genitourinary No Gastrointestinal No Musculoskeletal No Endocrine History of Endocrine Disorders: Yes (DIET CONTROLLED) Endocrine Disorders: Diabetes, Non-Insulin dep HEENT History of HEENT Disorders: No Cancer No Psychosocial History of Psychiatric Problem: No Integumentary History of Skin or Integumenta: No Blood Transfusions History of Blood Disorders: No Reviewed Nursing Assessment Reviewed/Agree w Nursing PMH: Yes Family Medical History Significant Family History: Heart Disease, Hypertension Family Hx: Review of Systems Constitutional: No chills, No fever EENTM: No blurred vision, No double vision, No nose congestion, No throat pain Respiratory: No cough, No dyspnea on exertion, No short of breath Cardiovascular: No chest pain, No edema, No palpitations Gastrointestinal: abdominal pain, constipation, No diarrhea, No loss of appetite, No nausea, No vomiting Genitourinary: No dysuria, No frequency, other (denies vaginal bleeding) Musculoskeletal: No joint pain, No muscle pain Skin: No lesions, No rash Psychiatric/Neurological: Denies Headache, Denies Numbness, Denies Tingling Physical Exam Physical Exam Vital Signs Vital Sign - Last 12Hours 04/08/17 08:00 Temp 98.2 Pulse 63 Resp 22 B/P (MAP) 144/67 (92) Pulse Ox 100 O2 Delivery Room Air Capillary Refill : Less Than 3 SecondsLess Than 3 Seconds General Appearance: No Apparent Distress, WD/WN HEENT: PERRL/EOMI, Moist Mucous Membranes Neck: Non Tender, Supple Respiratory: Lungs Clear, No Respiratory Distress Cardiovascular: Regular Rate, Rhythm, No Murmur Gastrointestinal: Normal Bowel Sounds, Soft, No Guarding, No Rebound, Tenderness (left upper and lower quadrants) Extremity: Normal Capillary Refill, No Calf Tenderness Neurologic/Psychiatric: Alert, Oriented x3, Normal Mood/Affect Skin: Normal Color, Warm/Dry Results Results/Procedures Lab Laboratory Tests 04/08/17 08:15 Assessment/Plan Admission Diagnosis intractable abd pain Diagnosis/Problems Diagnosis/Problems (1) Intractable abdominal pain Status: Acute Assessment & Plan: likely due to enteritis Will continue fentanyl Added Bentyl for cramping pain Diet as tolerated Lipase normal (2) Essential (primary) hypertension Status: Chronic Assessment & Plan: Well controlled, resume home meds (3) Non-insulin dependent type 2 diabetes mellitus Assessment & Plan: Off medications Diet controlled Will follow fasting blood sugars (4) Uterine mass Status: Acute Assessment & Plan: No known history No history of vaginal bleeding Will get pelvic usg if patient agreeable during admission CA-125 ordered Clinical Quality Measures DVT/VTE Risk/Contraindication: Risk Factor Score Per Nursin RFS Level Per Nursing on Admit: 2=Moderate MURIEL REED MD Apr 08, 2017 15:41
[2017-04-08 16:17] VITALS: BP 130/60
[2017-04-08 19:23] VITALS: BP 133/62
[2017-04-08] MEDS ORDERED: ENALAPRIL 10 MG (VASOTEC) TAB PO SCH (21:00)
[2017-04-08] MEDS ORDERED: amLODIPine 5 MG (NORVASC) TAB PO SCH (21:00)
[2017-04-08] MEDS ORDERED: ATORVASTATIN 10 MG (LIPITOR) TABLET PO SCH ×2 (21:00)
[2017-04-08] MEDS ORDERED: TIMOLOL MALEATE 0.5% 5 ML (TIMOPTIC) BTL OU SCH (21:00)
[2017-04-08] MEDS: amLODIPine 5 MG (NORVASC) TAB PO SCH (21:02)
[2017-04-08] MEDS: ENALAPRIL 10 MG (VASOTEC) TAB PO SCH (21:02)
[2017-04-09 00:20] VITALS: BP 121/56
[2017-04-09] MEDS: NS IV 1000 ML 1,000 ML IV SCH (01:14)
[2017-04-09 04:56] VITALS: BP 117/56
[2017-04-09 06:10] LABS: BASOPHILS % (AUTO) 0 % (0-10); EOSINOPHILS # (AUTO) 0.1 10^3/uL (0.0-0.3); EOSINOPHILS % (AUTO) 1 % (0-10); LYMPHOCYTES # (AUTO) 1.5 X 10^3 (1.0-4.0); LYMPHOCYTES % (AUTO) 28 % (12-44); MEAN CORPUSCULAR HEMOGLOBIN 30 PG (25-34); MEAN CORPUSCULAR HGB CONC 33 G/DL (32-36); MEAN CORPUSCULAR VOLUME 91 FL (80-99); MONOCYTES # (AUTO) 0.5 X 10^3 (0.0-1.0); MONOCYTES % (AUTO) 9 % (0-12); NEUTROPHILS # (AUTO) 3.4 X 10^3 (1.8-7.8); NEUTROPHILS % (AUTO) 61 % (42-75); PLATELET COUNT 188 10^3/uL (130-400); RED BLOOD COUNT 3.59 10^6/uL (4.35-5.85); WHITE BLOOD COUNT 5.5 10^3/uL (4.3-11.0)
[2017-04-09 06:44] LABS: CALCIUM 9.4 MG/DL (8.5-10.1); CREATININE SERUM 0.98 MG/DL (0.60-1.30); POTASSIUM 4.4 MMOL/L (3.6-5.0)
[2017-04-09 08:00] VITALS: BP 150/68
[2017-04-09] MEDS: amLODIPine 5 MG (NORVASC) TAB PO SCH (08:55)
[2017-04-09] MEDS: ENALAPRIL 10 MG (VASOTEC) TAB PO SCH (08:56)
--- OUTSIDE RECORDS SUMMARY | 2017-04-09 09:33 | XMS REPORT | Continuity of Care Document ---
Author Author [facility] Organization [facility] Address Unknown Phone Unavailable Allergies Active Description Code Type Severity Reaction Onset Reported/Identified Relationship to Patient Clinical Status Yes No Known Drug Allergies [id number] Drug Allergy Unknown N/A 04/25/2011 Yes metformin [id number] Drug Allergy Severe CONFUSION 04/08/2017 Medications There is no data. Problems Date [...] ASPIRIN 11/09/2012 NIKIA BABCOCK MD Ot V58.69 OTH MED,LT,CURRENT USE 09/23/2013 TO [facility] BOOK REVIEWER Ot 250.00 DIAB ANGEL WO COMPL, TYPE II OR UNSPEC TY 09/23/2013 TO [facility] [employer]OOK REVIEW[facility] Ot 715.36 LOC OSTEOARTH NOS-L/LEG 09/23/2013 TO [facility] BOOK REVIEWER Ot 719.46 JOINT PAIN-L/LEG 04/24/2015 CARL ESCOTO Ot I65.23 04/25/2015 CARL ESCOTO Ot I65.23 07/22/2016 NIKIA BABCOCK MD Ot E11.9 TYPE 2 DIABETES MELLITUS WITHOUT COMPLIC 07/22/2016 NIKIA BABCOCK MD Ot I16.0 HYPERTENSIVE URGENCY 07/22/2016 NIKIA BABCOCK MD Ot Z79.84 QUALITY CONTROL LEAD (CURRENT) USE OF ORAL HYPOGLYC 07/22/2016 NIKIA BABCOCK MD Ot Z79.899 OTHER QUALITY CONTROL LEAD (CURRENT) DRUG THERAPY 07/22/2016 Ot 719.45 JOINT [...] DIABETES MELLITUS WITHOUT COMPLIC 07/23/2016 NIKIA BABCOCK MD Ot I16.0 HYPERTENSIVE URGENCY 07/23/2016 NIKIA BABCOCK MD, Ot Z79.84 ASSISTED (CURRENT) USE OF ORAL HYPOGLYC 07/23/2016 NIKIA BABCOCK MD, Ot Z79.899 OTHER QUALITY CONTROL LEAD (CURRENT) DRUG THERAPY 10/14/2016 CRAL ESCOTO Ot E78.2 MIXED HYPERLIPIDEMIA 10/14/2016 CARL [...] i.cardiac measurement (mass/volume) < ng/ mL <0.30 Complete urinalysis with reflex to culture - 04/08/17 07:30 Urine color determination YELLOW NRG Urine clarity determination CLEAR NRG Urine pH measurement by test strip 7 5-9 Specific gravity of urine by test strip 1.010 1.016- 1.022 Urine protein assay by test strip, semi-quantitative NEGATIVE NEGATIVE Urine glucose detection by automated test strip NEGATIVE NEGATIVE Erythrocytes detection in urine sediment by light microscopy NEGATIVE NEGATIVE Urine ketones detection by automated test strip NEGATIVE NEGATIVE Urine nitrite detection by test strip NEGATIVE NEGATIVE Urine total bilirubin detection by test strip NEGATIVE NEGATIVE Urine urobilinogen measurement by automated test strip (mass/volume) NORMAL NORMAL Urine leukocyte esterase detection by dipstick 1+ NEGATIVE Automated urine sediment erythrocyte count by microscopy (number/high power field) NONE NRG Automated urine sediment leukocyte count by microscopy (number/high power field ) NONE NRG Bacteria detection in urine sediment by light microscopy TRACE NRG Squamous epithelial cells detection in urine sediment by light microscopy RARE NRG Crystals detection in urine sediment by light microscopy NONE NRG Casts detection in urine sediment by light microscopy NONE NRG Mucus detection in urine sediment by light microscopy NEGATIVE NRG Complete urinalysis with reflex to culture NO NRG Complete blood count (CBC) with automated white blood cell (WBC) differential - 04/08/17 08:15 Blood leukocytes automated count (number/volume) 5.6 10*3/uL 4.3-11.0 Blood erythrocytes automated count (number/volume) 4.19 10*6/uL 4.35-5.85 Venous blood hemoglobin measurement (mass/volume) 12.9 g/dL 11.5-16.0 Blood hematocrit (volume fraction) 37 % 35-52 Automated erythrocyte mean corpuscular volume 89 [foz_us] 80-99 Automated erythrocyte mean corpuscular hemoglobin (mass per erythrocyte) 31 pg 25-34 Automated erythrocyte mean corpuscular hemoglobin concentration measurement ( mass/volume) 35 g/dL 32-36 Automated erythrocyte distribution width ratio 12.7 % 10.0-14.5 Automated blood platelet count (count/volume) 219 10*3/uL 130-400 Automated blood platelet mean volume measurement 9.7 [foz_us] 7.4-10.4 Automated blood neutrophils/100 leukocytes 67 % 42-75 Automated blood lymphocytes/100 leukocytes 24 % 12-44 Blood monocytes/100 leukocytes 7 % 0-12 Automated blood eosinophils/100 leukocytes 2 % 0-10 Automated blood basophils/100 leukocytes 0 % 0-10 Blood neutrophils automated count (number/volume) 3.7 10*3 1.8-7.8 Blood lymphocytes automated count (number/volume) 1.3 10*3 1.0-4.0 Blood monocytes automated count (number/volume) 0.4 10*3 0.0-1.0 Automated eosinophil count 0.1 10*3/uL 0.0-0.3 Automated blood basophil count (count/volume) 0.0 10*3/uL 0.0-0.1 Comprehensive metabolic panel - 04/08/17 08:15 Serum or plasma sodium measurement (moles/volume) 139 mmol/L 135-145 Serum or plasma potassium measurement (moles/volume) 4.3 mmol/L 3.6-5.0 Serum or plasma chloride measurement (moles/volume) 105 mmol/L 98-107 Carbon dioxide 24 mmol/L 21-32 Serum or plasma anion gap determination (moles/volume) 10 mmol/L 5-14 Serum or plasma urea nitrogen measurement (mass/volume) 19 mg/dL 7-18 Serum or plasma creatinine measurement (mass/volume) 1.19 mg/dL 0.60-1.30 Serum or plasma urea nitrogen/creatinine mass ratio 16 NRG Serum or plasma creatinine measurement with calculation of estimated glomerular filtration rate 43 NRG Serum or plasma glucose measurement (mass/volume) 155 mg/dL 70-105 Serum or plasma calcium measurement (mass/volume) 10.4 mg/dL 8.5-10.1 Serum or plasma total bilirubin measurement (mass/volume) 0.5 mg/dL 0.1-1.0 Serum or plasma alkaline phosphatase measurement (enzymatic activity/volume) 77 U/L 40-136 Serum or plasma aspartate aminotransferase measurement (enzymatic activity/ volume) 17 U/L 5-34 Serum or plasma alanine aminotransferase measurement (enzymatic activity/volume ) 17 U/L 0-55 Serum or plasma protein measurement (mass/volume) 6.7 g/dL 6.4-8.2 Serum or plasma albumin measurement (mass/volume) 4.2 g/dL 3.2-4.5 Lipase - 04/08/17 08:15 Lipase 15 U/L 8-78 Capillary blood glucose measurement by glucometer (mass/volume) - 04/08/17 16: 04 Capillary blood glucose measurement by glucometer (mass/volume) 129 mg/dL 70-110 Capillary blood glucose measurement by glucometer (mass/volume) - 04/08/17 20: 35 Capillary blood glucose measurement by glucometer (mass/volume) 96 mg/dL 70-110 Capillary blood glucose measurement by glucometer (mass/volume) - 04/09/17 05: 17 Capillary blood glucose measurement by glucometer (mass/volume) 99 mg/dL 70-110 Complete blood count (CBC) with automated white blood cell (WBC) differential - 04/09/17 05:30 Blood leukocytes automated count (number/volume) 5.5 10*3/uL 4.3-11.0 Blood erythrocytes automated count (number/volume) 3.59 10*6/uL 4.35-5.85 Venous blood hemoglobin measurement (mass/volume) 10.9 g/dL 11.5-16.0 Blood hematocrit (volume fraction) 33 % 35-52 Automated erythrocyte mean corpuscular volume 91 [foz_us] 80-99 Automated erythrocyte mean corpuscular hemoglobin (mass per erythrocyte) 30 pg 25-34 Automated erythrocyte mean corpuscular hemoglobin concentration measurement ( mass/volume) 33 g/dL 32-36 Automated erythrocyte distribution width ratio 13.0 % 10.0-14.5 Automated blood platelet count (count/volume) 188 10*3/uL 130-400 Automated blood platelet mean volume measurement 10.0 [foz_us] 7.4-10.4 Automated blood neutrophils/100 leukocytes 61 % 42-75 Automated blood lymphocytes/100 leukocytes 28 % 12-44 Blood monocytes/100 leukocytes 9 % 0-12 Automated blood eosinophils/100 leukocytes 1 % 0-10 Automated blood basophils/100 leukocytes 0 % 0-10 Blood neutrophils automated count (number/volume) 3.4 10*3 1.8-7.8 Blood lymphocytes automated count (number/volume) 1.5 10*3 1.0-4.0 Blood monocytes automated count (number/volume) 0.5 10*3 0.0-1.0 Automated eosinophil count 0.1 10*3/uL 0.0-0.3 Automated blood basophil count (count/volume) 0.0 10*3/uL 0.0-0.1 Whole blood basic metabolic panel - 04/09/17 05:30 Serum or plasma sodium measurement (moles/volume) 139 mmol/L 135-145 Serum or plasma potassium measurement (moles/volume) 4.4 mmol/L 3.6-5.0 Serum or plasma chloride measurement (moles/volume) 107 mmol/L 98-107 Carbon dioxide 25 mmol/L 21-32 Serum or plasma anion gap determination (moles/volume) 7 mmol/L 5-14 Serum or plasma urea nitrogen measurement (mass/volume) 15 mg/dL 7-18 Serum or plasma creatinine measurement (mass/volume) 0.98 mg/dL 0.60-1.30 Serum or plasma urea nitrogen/creatinine mass ratio 15 NRG Serum or plasma creatinine measurement with calculation of estimated glomerular filtration rate 54 NRG Serum or plasma glucose measurement (mass/volume) 96 mg/dL 70-105 Serum or plasma calcium measurement (mass/volume) 9.4 mg/dL 8.5-10.1 Encounters ACCT No. Visit Date/Time Discharge Status Pt. Type Provider Facility Loc./Unit Complaint [id number] 09/22/2016 12:46:00 09/22/2016 23:59:59 CLS Outpatient CARL ESCOTO [facility] CARD I65.23,I10, E78.2 [id number] 07/22/2016 16:33:00 07/22/2016 17:57:00 DIS Emergency NIKIA BABCOCK MD [facility] ER ELEVATED BLOOD PRESSURE [id number] 03/30/2015 11:54:00 03/30/2015 23:59:59 CLS Outpatient CARL ESCOTO [facility] RAD STENOSIS, HTN ,HLP [id number] 09/23/2013 16:33:00 09/23/2013 18:30:00 DIS Emergency TO SIMPSON APRN [facility] ER R KNEE PAIN [id number] 03/09/2013 07:35:00 03/09/2013 23:59:59 CLS Outpatient BOBO METZGER MD [facility] RAD SYNCOPE,DM,HTN [id number] 03/03/2013 09:17:00 03/03/2013 23:59:59 CLS Outpatient BOBO METZGER MD [facility] CARD SYNCOPE,DM,HTN [id number] 01/19/2013 14:36:00 01/19/2013 23:59:59 CLS Outpatient ADALBERTO MAE MD [facility] RAD LT KNEE PAIN,FALL [id number] 01/19/2013 11:05:00 01/19/2013 23:59:59 CLS Outpatient ADALBERTO MAE MD [facility] RAD FALL,PAIN AND SWELLING [id number] 01/07/2013 09:48:00 01/07/2013 23:59:59 CLS Outpatient ADALBERTO MAE MD [facility] RAD FALL,RT ARM PAIN AND RT ARM SWELLING [id number] 11/09/2012 07:30:00 11/09/2012 09:49:00 DIS Emergency NIKIA BABCOCK MD [facility] ER FALL VOMITING/ DIZZINESS [id number] 04/08/2017 10:26:00 ACT Inpatient MELANIA FELIPE, MURIEL Berman [facility] 4TH ABDOMINAL PAIN [id number] 06/22/2012 10:25:00 Document Registration [id number] 07/29/2011 09:42:00 Document Registration [id number] 05/01/2011 12:13:00 Document Registration [id number] 04/25/2011 08:04:00 Document Registration
--- NOTE | 2017-04-09 12:00 | Diagnostic Imaging Report ---
EXAM: Transvaginal pelvic ultrasound. INDICATION: Uterine mass. FINDINGS: The uterus is 8.3 x 6.2 x 4.9 cm. There is a 5.5 x 5.2 x 6.2 cm mass seen replacing a significant portion of the myometrium in the body and fundus of the uterus and obscuring the endometrial stripe. The ovaries are obscured by bowel gas and likely atrophic at this age. IMPRESSION: A 6.2 cm uterine mass in the uterine body and fundus is favored to be a fibroid. The endometrial stripe is not seen. Endometrial carcinoma is felt to be less likely but is not entirely excluded. Gynecologic evaluation is recommended. Dictated by: Dictated on workstation # [id number]
--- NOTE | 2017-04-09 12:04 | Discharge Summary-Hospitalist ---
Diagnosis/Chief Complaint Date of Admission Apr 08, 2017 at 10:26 am Date of Discharge Apr 09, 2017 at 10:50 am Discharge Date: Apr 09, 2017 Admission Diagnosis intractable abd pain Discharge Diagnosis (1) Intractable abdominal pain Status: Acute Assessment & Plan: likely due to enteritis Resolved and has needed no further IV pain medicine Tolerated diet (2) Essential (primary) hypertension Status: Chronic Assessment & Plan: Well controlled, resume home meds (3) Non-insulin dependent type 2 diabetes mellitus Assessment & Plan: Off medications Diet controlled Will follow fasting blood sugars (4) Uterine mass Status: Acute Assessment & Plan: No known history No history of vaginal bleeding Pelvic usg done this AM Report pending at this time CA-125 ordered and pending Discharge Summary Discharge Physical Examination Allergies: Coded Allergies: metformin (Verified Adverse Reaction, Severe, CONFUSION, 04/08/17) Vitals & I&Os Vital Signs Date Time Temp Pulse Resp B/P (MAP) Pulse Ox O2 Delivery O2 Flow Rate FiO2 04/09/17 10:50 04/09/17 08:00 97.9 69 18 96 Room Air Hospital Course Pt is an 81yoCF who presented to the ER with CC of abd pain that was only controlled by IV medications. CT Abd showed small bowel inflammation likely due to enteritis and uterine mass. She was admitted for intractable pain. her pain quickly resolved after admission and she was tolerating a regular diet. Workup was initiated for her uterine mass with CA-125 and pelvic usg. Results of both are pending at this time and I discussed this with Dr Camp who states he will follow them up as an outpatient and arrange follow up appointment. Patient was anxious for discharge early this morning and was DC home in improved condition. Labs (last 24 hrs) Laboratory Tests 04/08/17 16:04: Glucometer 129H 04/08/17 20:35: Glucometer 96 04/09/17 05:17: Glucometer 99 04/09/17 05:30: White Blood Count 5.5, Red Blood Count 3.59L, Hemoglobin 10.9L, Hematocrit 33L, Mean Corpuscular Volume 91, Mean Corpuscular Hemoglobin 30, Mean Corpuscular Hemoglobin Concent 33, Red Cell Distribution Width 13.0, Platelet Count 188, Mean Platelet Volume 10.0, Neutrophils (%) (Auto) 61, Lymphocytes (%) (Auto) 28 , Monocytes (%) (Auto) 9, Eosinophils (%) (Auto) 1, Basophils (%) (Auto) 0, Neutrophils # (Auto) 3.4, Lymphocytes # (Auto) 1.5, Monocytes # (Auto) 0.5, Eosinophils # (Auto) 0.1, Basophils # (Auto) 0.0, Sodium Level 139, Potassium Level 4.4, Chloride Level 107, Carbon Dioxide Level 25, Anion Gap 7, Blood Urea Nitrogen 15, Creatinine 0.98, Estimat Glomerular Filtration Rate 54, BUN/ Creatinine Ratio 15, Glucose Level 96, Calcium Level 9.4 Pending Labs Laboratory Tests 04/09/17 05:17: Glucometer 99 04/09/17 05:30: White Blood Count 5.5, Red Blood Count 3.59, Hemoglobin 10.9, Hematocrit 33, Mean Corpuscular Volume 91, Mean Corpuscular Hemoglobin 30, Mean Corpuscular Hemoglobin Concent 33, Red Cell Distribution Width 13.0, Platelet Count 188, Mean Platelet Volume 10.0, Neutrophils (%) (Auto) 61, Lymphocytes (%) (Auto) 28 , Monocytes (%) (Auto) 9, Eosinophils (%) (Auto) 1, Basophils (%) (Auto) 0, Neutrophils # (Auto) 3.4, Lymphocytes # (Auto) 1.5, Monocytes # (Auto) 0.5, Eosinophils # (Auto) 0.1, Basophils # (Auto) 0.0, Sodium Level 139, Potassium Level 4.4, Chloride Level 107, Carbon Dioxide Level 25, Anion Gap 7, Blood Urea Nitrogen 15, Creatinine 0.98, Estimat Glomerular Filtration Rate 54, BUN/ Creatinine Ratio 15, Glucose Level 96, Calcium Level 9.4 Discharge Home Medications: Active Scripts Active Reported Timolol Maleate 0.5% (Timolol Maleate) 5 Ml Drops 1 Drop OU HS Vitamin B-12 (Cyanocobalamin (Vitamin B-12)) 1,000 Mcg Tablet 1,000 Mcg PO 1200 Vitamin D3 (Cholecalciferol (Vitamin D3)) 2,000 Unit Capsule 2,000 Unit PO DAILY Niacin (Niacinamide) 500 Mg Tablet 500 Mg PO DAILY Atorvastatin Calcium 10 Mg Tablet 5 Mg PO HS TAKES 1/2 (10MG) TABLET Fish Oil 1,000 mg Softgel (Festus-3 Fatty Acids/Fish Oil) 1 Each Capsule 1,200 Mg PO DAILY Aspirin EC (Aspirin) 325 Mg Tablet.dr 162.5 Mg PO DAILY TAKES 1/2 (325MG) TABLETS Enalapril Maleate 10 Mg Tablet 10 Mg PO BID Amlodipine Besylate 5 Mg Tablet 5 Mg PO BID Instructions to patient/family Please see electronic discharge instructions given to patient. Clinical Quality Measures DVT/VTE Risk/Contraindication: Risk Factor Score Per Nursin RFS Level Per Nursing on Admit: 2=Moderate Copy Copies To 1: SYDNEE CAMP MD, KATELYN M MD Apr 09, 2017 12:04 pm
== END 2017-04-09 10:24 | disposition home or self-care (01) ==
LOC: EDUNIT# 07:20 → ER 07:23 → 4TH 10:26 → UNDOADMOB 10:26 → 4TH 11:20 → UNDODISOB 04-09 10:50
PROVIDERS: ADMIT Family Medicine; ATTEND Family Medicine
DX: R10.84 Generalized abdominal pain (principal); N85.9 Noninflammatory disorder of uterus, unspecified; I10 Essential (primary) hypertension; E78.5 Hyperlipidemia, unspecified; E11.9 Type 2 diabetes mellitus without complications; Z79.84 Long term (current) use of oral hypoglycemic drugs; Z79.82 Long term (current) use of aspirin; Z79.899 Other long term (current) drug therapy
CPT/HCPCS: 36415; 74177; 76830; 80048; 80053; 81000; 82962; 83690; 85025; 86304; 96361; 96374; 96375; 96376; 99211; 99284; G0378

== ENCOUNTER → 2017-07-10 | Outpatient (CLI) | payer MEDICARE, OTHER ==
[~2017-07-10] MED LIST changes: +AMLO5TAB2 PO; +ASPI325T32 PO; +ATOR10TA66 PO; +CHOL20003 PO; +CYAN10006 PO; +NIAC500T24 PO; +OMEG-77 PO; +TIMO5DRO5 OU
--- NOTE | 2017-07-10 12:51 | Diagnostic Imaging Report ---
CLINICAL INDICATION: Patient uterine fibroid. EXAM: Transabdominal and transvaginal pelvic ultrasound. COMPARISON: Pelvic ultrasound dated 04/09/2017. FINDINGS: Bowel gas and patient body habitus limits evaluation. The ovaries are not well delineated in the right and left expected adnexal regions. There is no significant abnormality seen in the regions. There is a 5.6 cm x 5.0 cm x 4.9 cm heterogeneous mass within the uterine fundus which has posterior shadowing obscuring is complete appearance. This lesion likely represents a fibroid seen on comparison study which measured 5.5 cm x 5.2 cm x 6.2 cm. Uterus currently measures 7.8 cm x 4.9 cm x 5.9 cm. Endometrial stripe is not delineated. There is no significant free fluid. IMPRESSION: 1: Limited exam due to patient body habitus. 2: Interval decrease measurements sizes of the likely uterine fibroid. Differences in uterine fibroid measurements could be due to intraoperative technique. Dictated by: Dictated on workstation # [id number]
== END ==
LOC: RAD 10:37
PROVIDERS: ATTEND Obstetrics & Gynecology
DX: D25.2 Subserosal leiomyoma of uterus (principal)
CPT/HCPCS: 76830; 76856

== ENCOUNTER → 2017-12-22 | Outpatient (CLI) | payer MEDICARE, OTHER ==
[~2017-12-22] MED LIST changes: +ACHD5005 PO; -AMLO5TAB2 PO; +AMLO5TAB7 PO; +CHOL5000 PO; +CYCL5TAB PO; +LISI40TA PO; +NIAC500T8 PO
--- NOTE | 2017-12-22 17:40 | Diagnostic Imaging Report ---
INDICATION: Back pain after lifting a heavy object. TIME OF EXAM: 3:14 PM FINDINGS: Sacrococcygeal alignment appears normal. Sacral arcuate lines are intact. No fractures are seen. SI joints are non-widened. Symphysis is unremarkable. IMPRESSION: No acute bony abnormality is detected. Dictated by: Dictated on workstation # [id number]
--- NOTE | 2017-12-22 17:43 | Diagnostic Imaging Report ---
INDICATION: Back pain after lifting a heavy object. TIME OF EXAM: 03:13 p.m. Correlation is made with prior lumbar spine radiographs from 05/06/2007. FINDINGS: There is straightening of the normal lordotic curvature. There is minimal retrolisthesis of L3 on L4 and L2 on L3. There is a chronic anterior compression deformity involving the L2 vertebral body. Remaining lumbar vertebrae demonstrate normal stature. Severe multilevel degenerative disc disease is seen with variable disc space narrowing and marginal spurring. Abdominal aorta is heavily calcified. IMPRESSION: Severe lumbar spondylosis and chronic anterior wedging at L2. No definite acute lumbar compression fracture is identified. Dictated by: Dictated on workstation # [id number]
== END ==
LOC: RAD 14:39
PROVIDERS: ATTEND Nurse Practitioner
DX: M48.56XA Collapsed vertebra, not elsewhere classified, lumbar region, initial encounter for fracture (principal); M47.816 Spondylosis without myelopathy or radiculopathy, lumbar region; X50.0XXA Overexertion from strenuous movement or load, initial encounter
CPT/HCPCS: 72100; 72220

== ENCOUNTER 2018-01-04 17:33 | Inpatient (IN) | payer MEDICARE, OTHER ==
[~2018-01-04] VITALS: Ht 157.5 cm; Wt 53.7 kg
[~2018-01-04 17:33] MED LIST changes: -ACHD5005 PO; -CHOL5000 PO; -CYCL5TAB PO; -LISI40TA PO; -NIAC500T8 PO
--- OUTSIDE RECORDS SUMMARY | 2018-01-04 17:39 | XMS REPORT | Continuity of Care Document ---
Author Author [facility] Organization [facility] Address Unknown Phone Unavailable Allergies Active Description Code Type Severity Reaction Onset Reported/Identified Relationship to Patient Clinical Status Yes No Known Drug Allergies [id number] Drug Allergy Unknown N/A 04/25/2011 Yes metformin [id number] Drug Allergy Severe CONFUSION 04/08/2017 Medications There [...] MD Ot 780.4 DIZZINESS AND GIDDINESS 11/09/2012 NKIIA BABCOCK MD Ot 787.03 VOMITING ALONE 11/09/2012 NIKIA BABCOCK MD Ot 787.91 DIARRHEA 11/09/2012 NIKIA BABCOCK MD Ot 881.00 OPEN WOUND OF FOREARM 11/09/2012 NIKIA BABCOCK MD Ot E888.9 FALL NOS 11/09/2012 NIKIA BABCOCK MD Ot V15.88 HISTORY OF FALL 11/09/2012 NIKIA BABCOCK MD Ot V58.66 LONG-TERM (CURRENT) USE OF ASPIRIN 11/09/2012 NIKIA BABCOCK MD Ot V58.69 OTH MED,LT,CURRENT USE 09/23/2013 TO SIMPSON TAX REPRESENTATIVE Ot 250.00 DIAB ANGEL WO COMPL, TYPE II OR UNSPEC TY 09/23/2013 TO SIMPSON TAX REPRESENTATIVE Ot 715.36 LOC OSTEOARTH NOS-L/LEG 09/23/2013 TO SIMPSON TAX REPRESENTATIVE Ot 719.46 JOINT PAIN-L/LEG 04/24/2015 CARL ESCOTO Ot I65.23 04/25/2015 CARL ESCOTO Ot I65.23 07/22/2016 NIKIA BABCOCK MD Ot E11.9 TYPE 2 DIABETES MELLITUS WITHOUT COMPLIC 07/22/2016 NIKIA BABCOCK MD Ot I16.0 HYPERTENSIVE URGENCY 07/22/2016 NIKIA BABCOCK MD Ot Z79.84 MANAGER CHEMISTRY (CURRENT) USE OF ORAL HYPOGLYC 07/22/2016 NIKIA BABCOCK MD Ot Z79.899 OTHER MANAGER CHEMISTRY (CURRENT) DRUG THERAPY 07/22/2016 Ot 719.45 JOINT [...] MD Ot 401.9 HYPERTENSION NOS 07/22/2016 BOBO MTEZGER MD Ot 424.0 MITRAL VALVE DISORDER 07/22/2016 BOBO MTEZGER MD Ot 780.2 SYNCOPE AND COLLAPSE 07/22/2016 BOBO METZGER MD Ot 401.9 HYPERTENSION NOS 07/22/2016 BOBO METZGER MD Ot 780.2 SYNCOPE AND COLLAPSE 07/22/2016 CARL ESCOTO Ot 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 07/23/2016 NIKIA BABCOCK MD Ot E11.9 TYPE 2 DIABETES MELLITUS WITHOUT COMPLIC 07/23/2016 NIKIA BABCOCK MD Ot I16.0 HYPERTENSIVE URGENCY 07/23/2016 NIKIA BABCOCK MD Ot Z79.84 HALF-WAY (CURRENT) USE OF ORAL HYPOGLYC 07/23/2016 NIKIA BABCOCK MD, Ot Z79.899 OTHER HALF-WAY (CURRENT) DRUG THERAPY 10/14/2016 CARL ESCOTO Ot E78.2 MIXED HYPERLIPIDEMIA 10/14/2016 CARL ESCOTO Ot I10 ESSENTIAL (PRIMARY) HYPERTENSION 10/14/2016 CARL ESCOTO Ot I49.5 SICK SINUS SYNDROME 10/14/2016 CARL ESCOTO Ot 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 04/09/2017 MURIEL VELÁZQUEZ MD Ot E11.9 TYPE 2 DIABETES MELLITUS WITHOUT COMPLIC 04/09/2017 MURIEL VELÁZQUEZ MD Ot E78.5 HYPERLIPIDEMIA, UNSPECIFIED 04/09/2017 MURIEL VELÁZQUEZ MD Ot I10 ESSENTIAL (PRIMARY) HYPERTENSION 04/09/2017 MURIEL VELÁZQUEZ MD Ot N85.9 NONINFLAMMATORY DISORDER OF UTERUS, UNSP 04/09/2017 MURIEL VELÁZQUEZ MD Ot R10.84 GENERALIZED ABDOMINAL PAIN 04/09/2017 MURIEL VELÁZQUEZ MD Ot Z79.82 HALF-WAY (CURRENT) USE OF ASPIRIN 04/09/2017 MURIEL VELÁZQUEZ MD Ot Z79.84 HALF-WAY (CURRENT) USE OF ORAL HYPOGLYC 04/09/2017 MURIEL VELÁZQUEZ MD Ot Z79.899 OTHER HALF-WAY (CURRENT) DRUG THERAPY 07/08/2017 Ot 719.07 JOINT EFFUSION-ANKLE 07/08/2017 Ot 729.5 PAIN IN LIMB 07/08/2017 ADALBERTO MAE MD Ot 812.41 SUPRCONDYL FX HUMERUS-CL 07/08/2017 ADALBERTO MAE MD Ot E000.8 OTHER EXTERNAL CAUSE STATUS 07/08/2017 ADALBERTO MAE MD Ot E849.0 ACCIDENT IN HOME 07/08/2017 ADALBERTO MAE MD Ot E888.9 FALL NOS 07/08/2017 ADALBERTO MAE MD Ot 719.06 JOINT EFFUSION-L/LEG 07/08/2017 ADALBERTO MAE MD Ot 959.7 LOWER LEG INJURY NOS 07/08/2017 ADALBERTO MAE MD Ot E000.8 OTHER EXTERNAL CAUSE STATUS 07/08/2017 ADALBERTO MAE MD Ot E849.0 ACCIDENT IN HOME 07/08/2017 ADALBERTO MAE MD Ot E888.9 FALL NOS 07/08/2017 ADALBERTO MAE MD Ot 719.06 JOINT EFFUSION-L/LEG 07/08/2017 ADALBERTO MAE MD Ot 727.51 POPLITEAL SYNOVIAL CYST 07/08/2017 ADALBERTO MAE MD Ot 822.0 FRACTURE PATELLA-CLOSED 07/08/2017 ADALBERTO MAE MD Ot E000.8 OTHER EXTERNAL CAUSE STATUS 07/08/2017 ADALBERTO MAE MD Ot E888.9 FALL NOS 07/08/2017 BOBO METZGER MD Ot 250.00 DIAB ANGEL WO COMPL, TYPE II OR UNSPEC TY 07/08/2017 BOBO METZGER MD Ot 397.0 TRICUSPID VALVE DISEASE 07/08/2017 BOBO METZGER MD Ot 401.9 HYPERTENSION NOS 07/08/2017 BOBO METZGER MD Ot 424.0 MITRAL VALVE DISORDER 07/08/2017 BOBO METZGER MD Ot 780.2 SYNCOPE AND COLLAPSE 07/08/2017 BOBO METZGER MD Ot 401.9 HYPERTENSION NOS 07/08/2017 BOBO METZGER MD Ot 780.2 SYNCOPE AND COLLAPSE 07/08/2017 CARL ESCOTO Ot 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 07/08/2017 CARL ESCOTO Ot E78.2 MIXED HYPERLIPIDEMIA 07/08/2017 CARL ESCOTO Ot I10 ESSENTIAL (PRIMARY) HYPERTENSION 07/08/2017 CARL ESCOTO Ot I49.5 SICK SINUS SYNDROME 07/08/2017 CARL ESCOTO Ot 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 07/13/2017 FENQUINCY DO, BILLY S Ot 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 12/22/2017 ADALBERTO MAE MD Ot 812.41 SUPRCONDYL FX HUMERUS-CL 12/22/2017 ADALBERTO MAE MD Ot E000.8 OTHER EXTERNAL CAUSE STATUS 12/22/2017 ADALBERTO MAE MD Ot E849.0 ACCIDENT IN HOME 12/22/2017 ADALBERTO MAE MD Ot E888.9 FALL NOS 12/22/2017 ADALBERTO MAE MD Ot 719.06 JOINT EFFUSION-L/LEG 12/22/2017 ADALBERTO MAE MD Ot 959.7 LOWER LEG INJURY NOS 12/22/2017 ADALBERTO MAE MD Ot E000.8 OTHER EXTERNAL CAUSE STATUS 12/22/2017 ADALBERTO MAE MD Ot E849.0 ACCIDENT IN HOME 12/22/2017 ADALBERTO MAE MD Ot E888.9 FALL NOS 12/22/2017 ADALBERTO MAE MD Ot 719.06 JOINT EFFUSION-L/LEG 12/22/2017 ADALBERTO MAE MD Ot 727.51 POPLITEAL SYNOVIAL CYST 12/22/2017 TU FELIPE, ADALBERTO Pérez Ot 822.0 FRACTURE PATELLA-CLOSED 12/22/2017 TU FELIPE, ADALBERTO Pérez Ot E000.8 OTHER EXTERNAL CAUSE STATUS 12/22/2017 ADALBERTO MAE MD Ot E888.9 FALL NOS 12/22/2017 BOBO METZGER MD Ot 250.00 DIAB ANGEL WO COMPL, TYPE II OR UNSPEC TY 12/22/2017 BOBO METZGER MD Ot 397.0 TRICUSPID VALVE DISEASE 12/22/2017 BOBO METZGER MD Ot 401.9 HYPERTENSION NOS 12/22/2017 BOBO METZGER MD Ot 424.0 MITRAL VALVE DISORDER 12/22/2017 BOBO METZGER MD Ot 780.2 SYNCOPE AND COLLAPSE 12/22/2017 BOBO METZGER MD Ot 401.9 HYPERTENSION NOS 12/22/2017 BOBO METZGER MD Ot 780.2 SYNCOPE AND COLLAPSE 12/22/2017 CARL ESCOTO Ot 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 Results Test [...] - 04/08/17 08:15 Lipase 15 U/L 8-78 CA 125 - 04/08/17 08:15 CA 125 C 8.2 u[iU]/mL 2.0-30.0 Capillary blood glucose measurement by glucometer (mass/volume) [...] Status Pt. Type Provider Facility Loc./Unit Complaint [id number] 12/22/2017 14:39:00 12/22/2017 23:59:59 CLS Outpatient CHIDIDOUGLASFidelia Hernández TAX REPRESENTATIVE [facility] RAD LOW BACK PAIN [id number] 07/10/2017 10:37:00 07/10/2017 23:59:59 CLS Outpatient BILLY FINK DO [facility] RAD UTERINE FIBROID [id number] 04/08/2017 10:26:00 04/09/2017 10:50:00 DIS Inpatient MELANIA FELIPE, MURIEL Berman [facility] 4TH ABDOMINAL PAIN [id number] 09/22/2016 12:46:00 09/22/2016 23:59:59 CLS Outpatient CARL ESCOTO [facility] CARD I65.23,I10, E78.2 [id number] 07/22/2016 16:33:00 07/22/2016 17:57:00 DIS Emergency NIKIA BABCOCK MD [facility] ER ELEVATED BLOOD PRESSURE [id number] 03/30/2015 11:54:00 03/30/2015 23:59:59 CLS Outpatient CARL ESCOTO [facility] RAD STENOSIS, HTN ,HLP [id number] 09/23/2013 16:33:00 09/23/2013 18:30:00 DIS Emergency TO SIMPSON TAX REPRESENTATIVE [facility] ER R KNEE PAIN [id number] 03/09/2013 07:35:00 03/09/2013 23:59:59 CLS Outpatient BOBO METZGER MD [facility] RAD SYNCOPE,DM,HTN [id number] 03/03/2013 09:17:00 03/03/2013 23:59:59 CLS Outpatient BOBO METZGRE MD [facility] CARD SYNCOPE,DM,HTN [id number] 01/19/2013 14:36:00 01/19/2013 23:59:59 CLS Outpatient ADALBERTO MAE MD [facility] RAD LT KNEE PAIN,FALL [id number] 01/19/2013 11:05:00 01/19/2013 23:59:59 CLS Outpatient ADALBERTO MAE MD [facility] RAD FALL,PAIN AND SWELLING [id number] 01/07/2013 09:48:00 01/07/2013 23:59:59 CLS Outpatient ADALBERTO MAE MD [facility] RAD FALL,RT ARM PAIN AND RT ARM SWELLING [id number] 11/09/2012 07:30:00 11/09/2012 09:49:00 DIS Emergency NIKIA BABCOCK MD [facility] ER FALL VOMITING/ DIZZINESS [id number] 01/04/2018 17:35:00 ACT Emergency YANY DOAR K [facility] ER BACK PAIN [id number] 01/04/2018 14:09:00 ACT Outpatient MEAGAN MURILLO APRN [facility] REHAB BACK PAIN; DDD [id number] 12/22/2017 14:40:00 Document Registration [id number] 06/22/2012 10:25:00 Document Registration [id number] 07/29/2011 09:42:00 Document Registration [id number] 05/01/2011 12:13:00 Document Registration [id number] 04/25/2011 08:04:00 Document Registration
--- NOTE | 2018-01-04 19:22 | ED Back Pain ---
General Stated Complaint: BACK PAIN Source of Information: Patient Exam Limitations: No Limitations History of Present Illness Date Seen by Provider: Jan 04, 2018 Time Seen by Provider: 19:19 Initial Comments To ER by her daughters with reports of severe midline low back pain since the end of November. She denies any known injury. No fevers or chills. No history of this. The pain does not radiate down either leg she's had no troubles with urination. She was given a prescription for Flexeril which she states has not helped with the pain. Location: Lumbar Spine, Paraspinous Muscles Timing/Duration: Constant Severity: Moderate Pain/Injury Location: Back Method of Injury: Unknown Associated Symptoms: lower back pain Allergies and Home Medications Allergies Coded Allergies: metformin (Verified Adverse Reaction, Severe, CONFUSION, 04/08/17) Home Medications Amlodipine Besylate 5 Mg Tablet, 5 MG PO BID, (Reported) Aspirin 325 Mg Tablet.dr, 162.5 MG PO DAILY, (Reported) TAKES 1/2 (325MG) TABLETS Atorvastatin Calcium 10 Mg Tablet, 5 MG PO HS, (Reported) TAKES 1/2 (10MG) TABLET Cholecalciferol (Vitamin D3) 2,000 Unit Capsule, 2,000 UNIT PO DAILY, (Reported) Cyanocobalamin (Vitamin B-12) 1,000 Mcg Tablet, 1,000 MCG PO 1200, (Reported) Enalapril Maleate 10 Mg Tablet, 10 MG PO BID, (Reported) Niacinamide 500 Mg Tablet, 500 MG PO DAILY, (Reported) [place]-3 Fatty Acids/Fish Oil 1 Each Capsule, 1,200 MG PO DAILY, (Reported) Timolol Maleate 5 Ml Drops, 1 DROP OU HS, (Reported) Patient Home Medication List Home Medication List Reviewed: Yes Review of Systems Constitutional: see HPI; No chills, No fever Respiratory: no symptoms reported Cardiovascular: no symptoms reported Genitourinary: no symptoms reported Musculoskeletal: see HPI, back pain Skin: no symptoms reported Psychiatric/Neurological: No Symptoms Reported Past Ypetevb-Ifhfkd-Xdjvdv Hx Patient Social History Recent Foreign Travel: No Contact w/Someone Who Travel: No Recent Hopitalizations: No Immunizations Up To Date Tetanus Booster (TDap): Unknown Date of Pneumonia Vaccine: Jan 21, 2017 Seasonal Allergies Seasonal Allergies: No Past Medical History Surgeries: No Respiratory: No Cardiac: Yes Hypertension Neurological: No Genitourinary: No Gastrointestinal: No Musculoskeletal: No Endocrine: Yes (DIET CONTROLLED) Diabetes, Non-Insulin dep HEENT: No Cancer: No Psychosocial: No Integumentary: No Blood Disorders: No Family Medical History Heart Disease, Hypertension Physical Exam Vital Signs Vital Signs - First Documented 01/04/18 19:38 Temp 97.7 Pulse 71 Resp 18 B/P (MAP) 163/73 (103) Pulse Ox 100 O2 Delivery Room Air Capillary Refill : Height, Weight, BMI Height: 5'3.00" Weight: 122lbs. 4.0oz. 55.256603fm; 20.4 BMI Method:Stated General Appearance: No Apparent Distress, WD/WN HEENT: PERRL/EOMI, TMs Normal Neck: Full Range of Motion, Normal Inspection Cardiovascular: Regular Rate, Rhythm, Normal Peripheral Pulses Respiratory: No Accessory Muscle Use, No Respiratory Distress Gastrointestinal: Normal Bowel Sounds, Non Tender, Soft, Other (she does have a pulsatile abdominal mass thOUGH she is very thin so this may be a normal caliber aorta and not necessarily pathological) Back: Normal Inspection, Other (tenderness over the sacrum) Extremity: Normal Capillary Refill, Normal Inspection, Other (posterior tibial pulses are +2 bilaterally) Neurologic/Psychiatric: Alert, Oriented x3 Skin: Normal Color, Warm/Dry Progress/Results/Core Measures Results/Orders Lab Results Laboratory Tests Test 01/04/18 19:20 Range/Units White Blood Count 6.9 4.3-11.0 10^3/uL Red Blood Count 4.15 L 4.35-5.85 10^6/uL Hemoglobin 12.7 11.5-16.0 G/DL Hematocrit 35 35-52 % Mean Corpuscular Volume 84 80-99 FL Mean Corpuscular Hemoglobin 31 25-34 PG Mean Corpuscular Hemoglobin Concent 36 32-36 G/DL Red Cell Distribution Width 12.3 10.0-14.5 % Platelet Count 297 130-400 10^3/uL Mean Platelet Volume 8.9 7.4-10.4 FL Neutrophils (%) (Auto) 60 42-75 % Lymphocytes (%) (Auto) 25 12-44 % Monocytes (%) (Auto) 12 0-12 % Eosinophils (%) (Auto) 2 0-10 % Basophils (%) (Auto) 0 0-10 % Neutrophils # (Auto) 4.2 1.8-7.8 X 10^3 Lymphocytes # (Auto) 1.8 1.0-4.0 X 10^3 Monocytes # (Auto) 0.8 0.0-1.0 X 10^3 Eosinophils # (Auto) 0.1 0.0-0.3 10^3/uL Basophils # (Auto) 0.0 0.0-0.1 10^3/uL Urine Color YELLOW Urine Clarity CLEAR Urine pH 7 5-9 Urine Specific Alba 1.010 L 1.016-1.022 Urine Protein NEGATIVE NEGATIVE Urine Glucose (UA) NEGATIVE NEGATIVE Urine Ketones NEGATIVE NEGATIVE Urine Nitrite NEGATIVE NEGATIVE Urine Bilirubin NEGATIVE NEGATIVE Urine Urobilinogen NORMAL NORMAL MG/DL Urine Leukocyte Esterase NEGATIVE NEGATIVE Urine RBC (Auto) NEGATIVE NEGATIVE Urine RBC NONE /HPF Urine WBC RARE /HPF Urine Crystals NONE /LPF Urine Bacteria NEGATIVE /HPF Urine Casts NONE /LPF Urine Mucus NEGATIVE /LPF Urine Culture Indicated NO Sodium Level 123 *L 135-145 MMOL/L Potassium Level 4.4 3.6-5.0 MMOL/L Chloride Level 89 L 98-107 MMOL/L Carbon Dioxide Level 23 21-32 MMOL/L Anion Gap 11 5-14 MMOL/L Blood Urea Nitrogen 19 H 7-18 MG/DL Creatinine 1.24 0.60-1.30 MG/DL Estimat Glomerular Filtration Rate 41 BUN/Creatinine Ratio 15 Glucose Level 150 H 70-105 MG/DL Calcium Level 10.5 H 8.5-10.1 MG/DL Corrected Calcium 10.3 H 8.5-10.1 MG/DL Total Bilirubin 0.4 0.1-1.0 MG/DL Aspartate Amino Transf (AST/SGOT) 18 5-34 U/L Alanine Aminotransferase (ALT/SGPT) 22 0-55 U/L Alkaline Phosphatase 97 40-136 U/L Total Protein 6.7 6.4-8.2 GM/DL Albumin 4.2 3.2-4.5 GM/DL My Orders Orders - TO SIMPSON OYSTER GROWER Cbc With Automated Diff (01/04/18 19:17) Comprehensive Metabolic Panel (01/04/18 19:17) Ua Culture If Indicated (01/04/18 19:17) Iv Heplock-Insert (Order) (01/04/18 19:17) Ct Abdomen/Pelvis W (01/04/18 19:17) Ct Lumbar Spine Wo (01/04/18 19:17) Fentanyl Injection (Sublimaze Injection (01/04/18 19:30) Iohexol Injection (Omnipaque 350 Mg/Ml 1 (01/04/18 19:30) Ns (Ivpb) (Sodium Chloride 0.9% Ivpb Bag (01/04/18 19:30) Ns Iv 500 Ml (Sodium Chloride 0.9%) (01/04/18 20:15) Medications Given in ED Current Medications Medications Dose Ordered Sig/Divine Route Start Time Stop Time Status Last Admin Dose Admin Fentanyl Citrate 25 mcg ONCE ONCE IVP 01/04/18 19:30 01/04/18 19:31 DC 01/04/18 19:30 25 MCG Iohexol 100 ml ONCE ONCE IV 01/04/18 19:30 01/04/18 19:31 DC 01/04/18 20:44 100 ML Sodium Chloride 80 ml ONCE ONCE IV 01/04/18 19:30 01/04/18 19:31 DC 01/04/18 20:44 80 ML Vital Signs/I&O 01/04/18 19:38 Temp 97.7 Pulse 71 Resp 18 B/P (MAP) 163/73 (103) Pulse Ox 100 O2 Delivery Room Air Diagnostic Imaging Diagonstic Imaging: CT Comments NAME: SULLY UGALDE [facility] REC#: [id number] PT STATUS: REG ER : 1935 PHYSICIAN: TO SIMPSON APRN ADMIT DATE: 01/04/18/ER Draft Date of Exam:01/04/18 CT ABDOMEN/PELVIS W PROCEDURE: CT abdomen and pelvis with contrast. TECHNIQUE: Multiple contiguous axial images were obtained through the abdomen and pelvis after administration of intravenous contrast. INDICATION: Low back pain FINDINGS: An L1 retropulsed fracture is better characterized on separately performed lumbar spinal CT. There is some vika-vertebral hemorrhage or edema consistent with acute to subacute fracture. There is a cyst in the left hepatic lobe anteriorly. The liver, gallbladder, bile ducts, spleen, adrenals, and pancreas are otherwise unremarkable. There is aortoiliac and mesenteric atherosclerotic vascular calcifications. Uterus, adnexa and urinary bladder unremarkable. The appendix appeared unremarkable. There is no sacral fracture. There are degenerative changes to the hips. The urinary bladder unremarkable. There is no ascites, abscess, hematoma or acute fluid collection. There is no pneumatosis or free gas. IMPRESSION: Retropulsed L1 vertebral body fracture, no acute abdominopelvic solid or hollow visceral abnormality. Dictated on workstation # [id number] Dict: 01/04/182046 Trans: 01/04/182057 FANNY [id number] Interpreted by: NARENDRA HUTCHISON Electronically signed by: Departure Communication (Admissions) Time/Spoke to Admitting Phy: 21:[address] Mason. Will admit, IVF, pain control. discussed the case with Dr. Baker from orthopedic. The patient reports no trouble with urinating or defecating, he has no radicular pain, possible. He would recommend a back brace, follow-up in the outpatient setting if she fails to respond to conservative therapy. NAME: SULLY UGALDE [facility] REC#: [id number] PT STATUS: REG ER : 1935 PHYSICIAN: TO SIMPSON APRN ADMIT DATE: 01/04/18/ER Draft Date of Exam:01/04/18 CT LUMBAR SPINE WO PROCEDURE: CT lumbar spine without contrast. TECHNIQUE: Multiple contiguous axial images were obtained through the lumbar spine without the use of intravenous contrast. Sagittal and coronal reformations were then performed. INDICATION: Back pain COMPARISON with abdominal pelvic CT of 04/08/2017. FINDINGS: The bones are osteoporotic. Having developed since the previous study is an acute to subacute retropulsed fracture of the L1 vertebral body resulting in about 50% stature loss. Retropulsion is by about 3 mm posteriorly into the spinal canal with a moderate degree of canal stenosis. The remaining lumbar statures are stable from the previous exam with a degenerative retrolisthesis of L2 on L3 and L3 on L4 as well as L4 on L5 showing no definite change. Degenerative disease at L3-L4, severely stenoses the thecal sac and bilateral neural foramen. At L4-L5, there is severe central canal and at least moderate degrees of biforaminal narrowing. At the L5-S1 level there is moderate canal and mild foraminal stenosis. IMPRESSION: 1. Retropulsed acute to subacute L1 vertebral body fracture is a new finding when compared to 2017. This is believed recent given the absence of bony healing and lucent fracture lines. 2. No other suspected acute osseous injury with chronic degenerative changes, spondylosis and substantial degrees of multilevel mid to lower lumbar spinal stenosis. Dictated on workstation # [id number] Dict: 01/04/182038 Trans: 01/04/18[address] [facility] [id number] Interpreted by: NARENDRA HUTCHISON Electronically signed by: Impression Primary Impression: Acute low back pain Additional Impressions: Hyponatremia Compression fracture of L1 lumbar vertebra Disposition: ADMITTED INPATIENT Condition: Stable Admissions Decision to Admit Reason: Admit from ER (General) Decision to Admit/Date: Jan 04, 2018 Time/Decision to Admit Time: 21:02 Departure-Patient Inst. Referrals: SYDNEE CAMP MD (PCP) Primary Care Physician TO SIMPSON APRN Jan 04, 2018 19:22
[2018-01-04] MEDS ORDERED: NS 100 ML (IVPB) BAG IV ONE (19:30)
[2018-01-04] MEDS ORDERED: IOHEXOL 350 MG/ML 100 ML (OMNIPAQUE 350) VIAL IV ONE (19:30)
[2018-01-04] MEDS ORDERED: fentaNYL INJECTION 100 MCG/2 ML AMP IVP ONE (19:30)
[2018-01-04 19:43] LABS: BASOPHILS % (AUTO) 0 % (0-10); BILIRUBIN,URINE NEGATIVE (NEGATIVE); CLARITY,URINE CLEAR; COLOR,URINE YELLOW; EOSINOPHILS # (AUTO) 0.1 10^3/uL (0.0-0.3); EOSINOPHILS % (AUTO) 2 % (0-10); GLUCOSE, URINE (UA) NEGATIVE (NEGATIVE); HEMATOCRIT 35 % (35-52); HEMOGLOBIN 12.7 G/DL (11.5-16.0); KETONES,URINE NEGATIVE (NEGATIVE); LEUKOCYTE ESTERASE ,URINE NEGATIVE (NEGATIVE); LYMPHOCYTES # (AUTO) 1.8 X 10^3 (1.0-4.0); LYMPHOCYTES % (AUTO) 25 % (12-44); MEAN CORPUSCULAR HEMOGLOBIN 31 PG (25-34); MEAN CORPUSCULAR HGB CONC 36 G/DL (32-36); MEAN CORPUSCULAR VOLUME 84 FL (80-99); MEAN PLATELET VOLUME 8.9 FL (7.4-10.4); MONOCYTES # (AUTO) 0.8 X 10^3 (0.0-1.0); MONOCYTES % (AUTO) 12 % (0-12); NEUTROPHILS # (AUTO) 4.2 X 10^3 (1.8-7.8); NEUTROPHILS % (AUTO) 60 % (42-75); NITRITE,URINE NEGATIVE (NEGATIVE); PH,URINE 7 (5-9); PLATELET COUNT 297 10^3/uL (130-400); PROTEIN,URINE NEGATIVE (NEGATIVE); RED BLOOD COUNT 4.15 10^6/uL (4.35-5.85); RED CELL DISTRIBUTION WIDTH 12.3 % (10.0-14.5); UROBILINOGEN,URINE NORMAL (NORMAL); WHITE BLOOD COUNT 6.9 10^3/uL (4.3-11.0)
[2018-01-04 19:50] LABS: BACTERIA,URINE NEGATIVE /HPF; WBC,URINE RARE /HPF
[2018-01-04 20:00] LABS: ALBUMIN 4.2 GM/DL (3.2-4.5); BILIRUBIN,TOTAL 0.4 MG/DL (0.1-1.0); CALCIUM 10.5 MG/DL (8.5-10.1); CREATININE SERUM 1.24 MG/DL (0.60-1.30); POTASSIUM 4.4 MMOL/L (3.6-5.0); TOTAL PROTEIN 6.7 GM/DL (6.4-8.2)
[2018-01-04] MEDS ORDERED: NS IV 500 ML 500 ML IV SCH (20:15)
--- NOTE | 2018-01-04 20:51 | Diagnostic Imaging Report ---
PROCEDURE: CT lumbar spine without contrast. TECHNIQUE: Multiple contiguous axial images were obtained through the lumbar spine without the use of intravenous contrast. Sagittal and coronal reformations were then performed. INDICATION: Back pain COMPARISON with abdominal pelvic CT of 04/08/2017. FINDINGS: The bones are osteoporotic. Having developed since the previous study is an acute to subacute retropulsed fracture of the L1 vertebral body resulting in about 50% stature loss. Retropulsion is by about 3 mm posteriorly into the spinal canal with a moderate degree of canal stenosis. The remaining lumbar statures are stable from the previous exam with a degenerative retrolisthesis of L2 on L3 and L3 on L4 as well as L4 on L5 showing no definite change. Degenerative disease at L3-L4, severely stenoses the thecal sac and bilateral neural foramen. At L4-L5, there is severe central canal and at least moderate degrees of biforaminal narrowing. At the L5-S1 level there is moderate canal and mild foraminal stenosis. IMPRESSION: 1. Retropulsed acute to subacute L1 vertebral body fracture is a new finding when compared to 2017. This is believed recent given the absence of bony healing and lucent fracture lines. 2. No other suspected acute osseous injury with chronic degenerative changes, spondylosis and substantial degrees of multilevel mid to lower lumbar spinal stenosis. Dictated by: Dictated on workstation # [id number]
--- NOTE | 2018-01-04 20:58 | Diagnostic Imaging Report ---
PROCEDURE: CT abdomen and pelvis with contrast. TECHNIQUE: Multiple contiguous axial images were obtained through the abdomen and pelvis after administration of intravenous contrast. INDICATION: Low back pain FINDINGS: An L1 retropulsed fracture is better characterized on separately performed lumbar spinal CT. There is some vika-vertebral hemorrhage or edema consistent with acute to subacute fracture. There is a cyst in the left hepatic lobe anteriorly. The liver, gallbladder, bile ducts, spleen, adrenals, and pancreas are otherwise unremarkable. There is aortoiliac and mesenteric atherosclerotic vascular calcifications. Uterus, adnexa and urinary bladder unremarkable. The appendix appeared unremarkable. There is no sacral fracture. There are degenerative changes to the hips. The urinary bladder unremarkable. There is no ascites, abscess, hematoma or acute fluid collection. There is no pneumatosis or free gas. IMPRESSION: Retropulsed L1 vertebral body fracture, no acute abdominopelvic solid or hollow visceral abnormality. Dictated by: Dictated on workstation # [id number]
--- OUTSIDE RECORDS SUMMARY | 2018-01-04 21:20 | XMS REPORT | Continuity of Care Document ---
Author Author [facility] Organization [facility] Address Unknown Phone Unavailable Allergies Active Description Code Type Severity Reaction Onset Reported/Identified Relationship to Patient Clinical Status Yes No Known Drug Allergies [id number] Drug Allergy Unknown N/A 04/25/2011 Yes metformin [id number] Drug Allergy Severe CONFUSION 04/08/2017 Medications There [...] V58.69 OTH MED,LT,CURRENT USE 09/23/2013 TO [employer] OFFICER Ot 250.00 DIAB ANGEL WO COMPL, TYPE II OR UNSPEC TY 09/23/2013 TO [employer] OFFICER Ot 715.36 LOC OSTEOARTH NOS-L/LEG 09/23/2013 TO [employer] OFFICER Ot 719.46 JOINT PAIN-L/LEG 04/24/2015 CRAL ESCOTO Ot I65.23 04/25/2015 CARL ESCOTO Ot I65.23 07/22/2016 NIKIA BABCOCK MD Ot E11.9 TYPE 2 DIABETES MELLITUS WITHOUT COMPLIC 07/22/2016 NIKIA BABCOCK MD Ot I16.0 HYPERTENSIVE URGENCY 07/22/2016 NIKIA BABCOCK MD Ot Z79.84 TRAIN CREW MEMBER (CURRENT) USE OF ORAL HYPOGLYC 07/22/2016 NIKIA BABCOCK MD Ot Z79.899 OTHER TRAIN CREW MEMBER (CURRENT) DRUG THERAPY 07/22/2016 Ot 719.45 JOINT [...] URGENCY 07/23/2016 NIKIA BABCOCK MD Ot Z79.84 ALF (CURRENT) USE OF ORAL HYPOGLYC 07/23/2016 NIKIA BABCOCK MD, Ot Z79.899 OTHER TRAIN CREW MEMBER (CURRENT) DRUG THERAPY 10/14/2016 CARL ESCOTO Ot [...] PAIN 04/09/2017 MURIEL VELÁZQUEZ MD Ot Z79.82 ALF (CURRENT) USE OF ASPIRIN 04/09/2017 MURIEL VELÁZQUEZ MD Ot Z79.84 ALF (CURRENT) USE OF ORAL HYPOGLYC 04/09/2017 MURIEL VELÁZQUEZ MD Ot Z79.899 OTHER ALF (CURRENT) DRUG THERAPY 07/08/2017 Ot 719.07 JOINT [...] plasma calcium measurement (mass/volume) 9.4 mg/dL 8.5-10.1 Complete blood count (CBC) with automated white blood cell (WBC) differential - 09/17/18 19:20 Blood leukocytes automated count (number/volume) 6.9 10*3/uL 4.3-11.0 Blood erythrocytes automated count (number/volume) 4.15 10*6/uL 4.35-5.85 Venous blood hemoglobin measurement (mass/volume) 12.7 g/dL 11.5-16.0 Blood hematocrit (volume fraction) 35 % 35-52 Automated erythrocyte mean corpuscular volume 84 [foz_us] 80-99 Automated erythrocyte mean corpuscular hemoglobin (mass per erythrocyte) 31 pg 25-34 Automated erythrocyte mean corpuscular hemoglobin concentration measurement ( mass/volume) 36 g/dL 32-36 Automated erythrocyte distribution width ratio 12.3 % 10.0-14.5 Automated blood platelet count (count/volume) 297 10*3/uL 130-400 Automated blood platelet mean volume measurement 8.9 [foz_us] 7.4-10.4 Automated blood neutrophils/100 leukocytes 60 % 42-75 Automated blood lymphocytes/100 leukocytes 25 % 12-44 Blood monocytes/100 leukocytes 12 % 0-12 Automated blood eosinophils/100 leukocytes 2 % 0-10 Automated blood basophils/100 leukocytes 0 % 0-10 Blood neutrophils automated count (number/volume) 4.2 10*3 1.8-7.8 Blood lymphocytes automated count (number/volume) 1.8 10*3 1.0-4.0 Blood monocytes automated count (number/volume) 0.8 10*3 0.0-1.0 Automated eosinophil count 0.1 10*3/uL 0.0-0.3 Automated blood basophil count (count/volume) 0.0 10*3/uL 0.0-0.1 Complete urinalysis with reflex to culture - 01/04/18 19:20 Urine color determination YELLOW NRG Urine clarity [...] NORMAL Urine leukocyte esterase detection by dipstick NEGATIVE NEGATIVE Automated urine sediment erythrocyte count by microscopy (number/high power field) NONE NRG Automated urine sediment leukocyte count by microscopy (number/high power field ) RARE NRG Bacteria detection in urine sediment by light microscopy NEGATIVE NRG Crystals detection in urine sediment by light microscopy NONE NRG Casts detection in urine sediment by light microscopy NONE NRG Mucus detection in urine sediment by light microscopy NEGATIVE NRG Complete urinalysis with reflex to culture NO NRG Comprehensive metabolic panel - 01/04/18 19:20 Serum or plasma sodium measurement (moles/volume) 123 mmol/L 135-145 Serum or plasma potassium measurement (moles/volume) 4.4 mmol/L 3.6-5.0 Serum or plasma chloride measurement (moles/volume) 89 mmol/L 98-107 Carbon dioxide 23 mmol/L 21-32 Serum or plasma anion gap determination (moles/volume) 11 mmol/L 5-14 Serum or plasma urea nitrogen measurement (mass/volume) 19 mg/dL 7-18 Serum or plasma creatinine measurement (mass/volume) 1.24 mg/dL 0.60-1.30 Serum or plasma urea nitrogen/creatinine mass ratio 15 NRG Serum or plasma creatinine measurement with calculation of estimated glomerular filtration rate 41 NRG Serum or plasma glucose measurement (mass/volume) 150 mg/dL 70-105 Serum or plasma calcium measurement (mass/volume) 10.5 mg/dL 8.5-10.1 Serum or plasma total bilirubin measurement (mass/volume) 0.4 mg/dL 0.1-1.0 Serum or plasma alkaline phosphatase measurement (enzymatic activity/volume) 97 U/L 40-136 Serum or plasma aspartate aminotransferase measurement (enzymatic activity/ volume) 18 U/L 5-34 Serum or plasma alanine aminotransferase measurement (enzymatic activity/volume ) 22 U/L 0-55 Serum or plasma protein measurement (mass/volume) 6.7 g/dL 6.4-8.2 Serum or plasma albumin measurement (mass/volume) 4.2 g/dL 3.2-4.5 CALCIUM CORRECTED 10.3 mg/dL 8.5-10.1 Encounters ACCT No. Visit Date/Time Discharge Status Pt. Type Provider Facility Loc./Unit Complaint [id number] 12/22/2017 14:39:00 12/22/2017 23:59:59 CLS Outpatient MEAGAN MURILLO APRN [facility] RAD LOW BACK PAIN [id number] 07/10/2017 10:37:00 07/10/2017 23:59:59 CLS Outpatient BILLY FINK DO [facility] RAD UTERINE FIBROID [id number] 04/08/2017 10:26:00 04/09/2017 10:50:00 DIS Inpatient MELANIA FELIPE, MURIEL Berman [facility] 4TH ABDOMINAL PAIN [id number] 09/22/2016 12:46:00 09/22/2016 23:59:59 CLS Outpatient CARL ESCOTO [facility] CARD I65.23,I10, E78.2 [id number] 07/22/2016 16:33:00 07/22/2016 17:57:00 DIS Emergency NIKIA BABCOCK MD [facility] ER ELEVATED BLOOD PRESSURE [id number] 03/30/2015 11:54:00 03/30/2015 23:59:59 CLS Outpatient CARL ESCOTO [facility] RAD STENOSIS, HTN ,HLP [id number] 09/23/2013 16:33:00 09/23/2013 18:30:00 DIS Emergency TO SIMPSON APRN [facility] ER R KNEE PAIN [id number] 03/09/2013 07:35:00 03/09/2013 23:59:59 CLS Outpatient BOBO METZGER MD [facility] RAD SYNCOPE,DM,HTN [id number] 03/03/2013 09:17:00 03/03/2013 23:59:59 CLS Outpatient BOBO METZGER MD [facility] CARD SYNCOPE,DM,HTN [id number] 01/19/2013 14:36:00 01/19/2013 23:59:59 CLS Outpatient ADALBERTO MAE MD [facility] RAD LT KNEE PAIN,FALL [id number] 01/19/2013 11:05:00 01/19/2013 23:59:59 CLS Outpatient ADALBERTO MAE MD [facility] RAD FALL,PAIN AND SWELLING [id number] 01/07/2013 09:48:00 01/07/2013 23:59:59 CLS Outpatient TU FELIPE, ADALBERTO Pérez [facility] RAD FALL,RT ARM PAIN AND RT ARM SWELLING [id number] 11/09/2012 07:30:00 11/09/2012 09:49:00 DIS Emergency SADIQ FELIPE, NIKIA Burnett [facility] ER FALL VOMITING/ DIZZINESS [id number] 01/04/2018 20:25:00 ACT Inpatient YASMANI FELIPE, AWAIS Gonzales [facility] 4TH HYPONATREMIA,BACK PAIN,L1 COMPRESSION FX [id number] 01/04/2018 14:09:00 ACT Outpatient MEAGAN MURILLO APRN [facility] REHAB BACK PAIN; DDD [id number] 12/22/2017 14:40:00 Document Registration [id number] 06/22/2012 10:25:00 Document Registration [id number] 07/29/2011 09:42:00 Document Registration [id number] 05/01/2011 12:13:00 Document Registration [id number] 04/25/2011 08:04:00 Document Registration
[2018-01-04 22:10] VITALS: BP 136/64
[2018-01-04] MEDS ORDERED: ONDANSETRON 4 MG/2 ML (SDV) Z0FRAN IV PRN (22:15)
[2018-01-04] MEDS ORDERED: fentaNYL INJECTION 100 MCG/2 ML AMP IV PRN (22:15)
[2018-01-04] MEDS: NS IV 1000 ML 1,000 ML IV SCH (23:49)
[2018-01-05] VITALS: BP 157/68
[2018-01-05] MEDS: HYDROcodone/APAP 5 MG/325 MG (LORTAB) TAB PO PRN ×2 (00:23→10:37)
[2018-01-05 04:00] VITALS: BP 149/68
[2018-01-05 06:14] LABS: BASOPHILS % (AUTO) 1 % (0-10); EOSINOPHILS # (AUTO) 0.1 10^3/uL (0.0-0.3); EOSINOPHILS % (AUTO) 2 % (0-10); HEMATOCRIT 30 % (35-52); HEMOGLOBIN 11.1 G/DL (11.5-16.0); LYMPHOCYTES # (AUTO) 1.6 X 10^3 (1.0-4.0); LYMPHOCYTES % (AUTO) 36 % (12-44); MEAN CORPUSCULAR HEMOGLOBIN 31 PG (25-34); MEAN CORPUSCULAR HGB CONC 37 G/DL (32-36); MEAN CORPUSCULAR VOLUME 85 FL (80-99); MEAN PLATELET VOLUME 8.9 FL (7.4-10.4); MONOCYTES # (AUTO) 0.7 X 10^3 (0.0-1.0); MONOCYTES % (AUTO) 15 % (0-12); NEUTROPHILS % (AUTO) 46 % (42-75); PLATELET COUNT 241 10^3/uL (130-400); RED BLOOD COUNT 3.56 10^6/uL (4.35-5.85); RED CELL DISTRIBUTION WIDTH 12.3 % (10.0-14.5); WHITE BLOOD COUNT 4.3 10^3/uL (4.3-11.0)
[2018-01-05 06:41] LABS: ALANINE AMINOTRANSFERASE 18 U/L (0-55); ALBUMIN 3.5 GM/DL (3.2-4.5); ALKALINE PHOSPHATASE 80 U/L (40-136); BILIRUBIN,TOTAL 0.3 MG/DL (0.1-1.0); BUN/CREATININE RATIO 16; CALCIUM 9.3 MG/DL (8.5-10.1); CARBON DIOXIDE 23 MMOL/L (21-32); CHLORIDE 103 MMOL/L (98-107); CREATININE SERUM 0.85 MG/DL (0.60-1.30); GFR ESTIMATED > 60; GLUCOSE 102 MG/DL (70-105); POTASSIUM 4.2 MMOL/L (3.6-5.0); SODIUM 133 MMOL/L (135-145); TOTAL PROTEIN 5.4 GM/DL (6.4-8.2)
[2018-01-05] MEDS ORDERED: FLU QUADRIvalent (5+ YOA) 2018-2019 (AFLURIA) 0.5 ML IM ONE ×2 (07:30→13:44)
[2018-01-05] MEDS: NS IV 1000 ML 1,000 ML IV SCH (07:57)
[2018-01-05 08:00] VITALS: BP 150/50
[2018-01-05] MEDS ORDERED: DOCUSATE SODIUM 100 MG (COLACE) CAP PO SCH (09:00)
[2018-01-05] MEDS ORDERED: NIAC500T8 PO (10:06)
[2018-01-05] MEDS ORDERED: CYCL5TAB PO (10:06)
[2018-01-05] MEDS ORDERED: LISI40TA PO (10:06)
[2018-01-05] MEDS ORDERED: CHOL5000 PO (10:11)
--- NOTE | 2018-01-05 11:20 | Short Stay Summary-Hospitalist ---
History of Present Illness HPI/Chief Complaint Pt is an 82yoCF with a PMH of HTN, diet controlled DM, and HLD who presented to the ER with CC of back pain. She states her symptoms started the last week of November after she has been workin gin her garden and lifting heavy gardening equipment. She was seen in her PCP's office and started on Flexeril and sent to PT but that did not help her. She was taking aspirin with moderate relief until yesterday after a therapy session. She could only lay down afterwards and was having severe 10/10 pain in her back prompting her to seek evaluation in the ER. She had imaging done which revealed an acute L1 compression fracture. She denies any incontinence or weakness. She was also found to be hyponatremic incidentally but denies any weakness or confusion. Source: patient, family Date Seen 01/05/18 Time Seen by Provider: 11:15 Attending Physician Yifan Mason MD PCP Dyllan Sanchez MD Referring Physician Date of Admission Jan 04, 2018 at 8:25 pm Home Medications & Allergies Home Medications Reviewed patient Home Medication Reconciliation performed by pharmacy medication reconciliations technician anatomic pathology and/or nursing. Patients Allergies have been reviewed. Allergies Allergies Coded Allergies metformin (Verified Adverse Reaction, Severe, CONFUSION, 04/08/17) Past Hnbgdbt-Fhvmre-Qjdoyg Hx Past Med/Social Hx: Reviewed Nursing Past Med/Soc Hx Patient Social History Marrital Status: Alcohol Use: Denies Use Recreational Drug Use: No Smoking Status: Never a Smoker 2nd Hand Smoke Exposure: No Physical Abuse Screen: No Sexual Abuse: No Recent Foreign Travel: No Contact w/other who traveled: No Recent Hopitalizations: No Recent Infectious Disease Expo: No Immunizations Up To Date Tetanus Booster (TDap): Unknown Date of Pneumonia Vaccine: Oct 18, 2017 Seasonal Allergies Seasonal Allergies: Yes Past Medical History cataract Cardiac: High Cholesterol, Hypertension Sexually Transmitted Disease: No HIV/AIDS: No Female Reproductive Disorders: Denies uterine mass Musculoskeletal: Osteoporosis Endocrine: Diabetes, Non-Insulin dep Are Your Blood Sugars Over 250: No HEENT: Cataract, Macular Degeneration, Glaucoma Cancer: Skin Did You Recieve Any Treatments: Yes What Type of Treatment Did You: Surgical Intervention History of Blood Disorders: No Adverse Reaction to Blood Ferreira: No Family History Reviewed Nursing Family Hx Heart Disease, Hypertension Review of Systems Constitutional: No chills, No fever EENTM: No blurred vision, No double vision, No nose congestion, No throat pain Respiratory: No cough, No dyspnea on exertion, No short of breath Cardiovascular: No chest pain, No edema, No palpitations Gastrointestinal: No abdominal pain, No constipation, No diarrhea, No nausea, No vomiting Genitourinary: No dysuria, No frequency Musculoskeletal: back pain Skin: No lesions, No rash Psychiatric/Neurological: Denies Headache, Denies Numbness, Denies Tingling Physical Exam Physical Exam Vital Signs Vital Signs - First Documented 01/04/18 19:38 Temp 97.7 Pulse 71 Resp 18 B/P (MAP) 163/73 (103) Pulse Ox 100 O2 Delivery Room Air Capillary Refill : Less Than 3 SecondsLess Than 3 Seconds Height, Weight, BMI Height: 5'2.00" Weight: 118lbs. 6.4oz. 53.054989na; 21.7 BMI Method:Stated General Appearance: No Apparent Distress, WD/WN HEENT: PERRL/EOMI, Moist Mucous Membranes Neck: Non Tender, Supple Respiratory: Lungs Clear, No Respiratory Distress Cardiovascular: Regular Rate, Rhythm, No Murmur Gastrointestinal: Normal Bowel Sounds, Non Tender, Soft Extremity: Normal Capillary Refill, No Calf Tenderness Neurologic/Psychiatric: Alert, Oriented x3, Normal Mood/Affect Skin: Normal Color, Warm/Dry Results Results/Procedures Labs Laboratory Tests 01/04/18 19:20 01/05/18 05:35 Patient resulted labs reviewed. Imaging: Reviewed Imaging Report Short Stay Diagnosis Discharge Diagnosis-Short Stay Admission Diagnosis L1 compression fracture Final Discharge Diagnosis L1 Compression fracture Conclusion Plan L1 compression fracture - Continue current pain regimen as pain well controlled - ER spoke with Dr Baker who recommended brace and outpatient follow up - Discussed with RN who will arrange with ortho regarding brace Hyponatremia asymptomatic Much improved today Baseline in the low 130s Uterine Mass CT abd states uterus unremarkable but discussed with Dr Alexander and similar in appearance to March Discussed with Dr Davis and will still need her usg scheduled on Thursday Clinical Quality Measures DVT/VTE Risk/Contraindication: Risk Factor Score Per Nursin RFS Level Per Nursing on Admit: 2=Moderate MURIEL VELÁZQUEZ MD Jan 05, 2018 11:20 am
[2018-01-05 12:00] VITALS: BP 140/64
[2018-01-05] MEDS ORDERED: ACHD5005 PO (12:17)
--- NOTE | 2018-01-05 12:20 | Discharge Inst-Simple/Standard ---
Discharge Inst-Standard Discharge Medications New, Converted or Re-Newed RX: RX on Chart Patient Instructions/Follow Up Plan of Care/Instructions/FU: Please continue to take your medications as written. Katia follow up with [facility] on Thursday as already scheduled. Activity as Tolerated: Yes Discharge Diet: ADA Diet Return to The Hospital For: Worsening pain, incontince of urine or stool, weakness, if you feel you are getting worse. MURIEL VELÁZQUEZ MD Jan 05, 2018 12:20 pm
--- NOTE | 2018-01-05 12:58 | Physical Therapy Evaluation ---
PT Evaluation-General Medical Diagnosis Admission Date Jan 04, 2018 at 20:25 Medical Diagnosis: hyponatremia/UTI/back pain Onset Date: Jan 04, 2018 Therapy Diagnosis Therapy Diagnosis: debility Height/Weight Height (Feet): 5 Height (Inches): 2.00 Weight (Pounds): 118 Weight (Ounces): 6.4 Precautions Precautions/Isolations: Fall Prevention, Standard Precautions Weight Bear Status Right Lower Extremity: Right Weight Bearing/Tolerated Left Lower Extremity: Left Weight Bearing/Tolerated Referral Physician: Derek Reason for Referral: Evaluation/Treatment Medical History Pertinent Medical History: DM, HTN Current History ED secondary to back pain/L1 compression fracture. No mechanism of injury. Reviewed History: Yes Social History Home: Single Level Current Living Status: Alone Prior/Core FIM Prior Level of Function Functional [place] Measure 0=Not Assessed/NA 4=Minimal Assistance 1=Total Assistance 5=Supervision or Setup 2=Maximal Assistance 6=Modified [place] 3=Moderate Assistance 7=Complete [place] Bed Mobility: 7 Transfers (B,C,W/C) (FIM): 7 Gait: 7 PT Evaluation-Current Subjective Patient agrees to PT. Has many questions about restrictions and brace wear. Education given. Pain Numeric Pain Scale: 3 Location: Lower Location Body Site: Back Pain Description: Acute Objective Patient Orientation: Normal For Age Problem Solving: Good Comprehension: 7 Expression: 7 Social Interaction: 7 Problem Solvin Memory: 7 ROM/Strength ROM Lower Extremities bilateral LE WNL Strength Lower Extremities 5/5 grossly bilateral LE Integumentary/Posture Integumentary refer to nursing notes Bowel Incontinence: No Bladder Incontinence: No Posture WFL Neuromuscular (Tone, Coordination, Reflexes) grossly intact Sensory Vision: Functional Hearing: Functional Sensation Right Lower Extremit: Impaired Sensation Left Lower Extremity: Impaired Transfers Functional [place] Measure 0=Not Assessed/NA 4=Minimal Assistance 1=Total Assistance 5=Supervision or Setup 2=Maximal Assistance 6=Modified [place] 3=Moderate Assistance 7=Complete [place] Transfers (B, C, W/C) (FIM): 7 Scootin Rollin Supine to/from Sit: 7 Sit to/from Stand: 7 Gait Mode of Locomotion: Walk Anticipated Mode of Locomotion: Walk Gait (FIM): 1 Distance (FIM): 1=up to 49 ft Distance: 10' Gait Level of Assist: 7 Gait Assistive Device: None Comments/Gait Description no deviation Balance Sitting Static: Normal Sitting Dynamic: Normal Standing Static: Normal Standing Dynamic: Normal Treatment Orthofit for TLSO secondary to L1 compression fracture. Patient dons back brace independently and family present. Assessment/Needs 82 y.o. active female, seen x 1 session for assessment of mobility and TLSO fit. Patient continues to be independent with gross motor skills and per physician, should continue with outpatient PT. This PT educated patient on brace wear and to return to her PT to adapt further treatment. This PT did contact outpatient PT with this information. Rehab Potential: Good PT Plan Treatment/Plan Treatment Plan: Discontinue PT, goals met Treatment Plan: Other Treatment Duration: Jan 05, 2018 Frequency: 1 time per week Estimated Hrs Per Day: .25 hour per day Patient and/or Family Agrees t: Yes Safety Risks/Education Patient Education: Reviewed Don/Doff Brace Teaching Recipient: Patient, Family Teaching Methods: Demonstration Response to Teaching: Return Demonstration Discharge Recommendations Therapy D/C Recommendations: Home w/ Family Support, Home Independently Time/GCodes Time In: 1145 Time Out: 1201 Total Billed Treatment Time: 16 Total Billed Treatment 1 visit EVLow 16 min JAYLIN KEE PT Jan 05, 2018 12:58
--- NOTE | 2018-01-05 13:26 | Physician Query Clarification ---
PQ-Link Manifestation-Etiology Admission/Discharge Admission Date: Jan 04, 2018 at 20:25 Discharge Date: The medical record reflects the following clinical scenario: History/Risk Factors: L1 compression fracture Low back pain Patient denies any known injury, but has been working in her garden and lifting. Clinical Findings: Lumbar CT-Findings: The bones are osteoporotic. Treatment:IV Fentanyl, Lortab 5 mg, plan for brace. Question: Can you specify if the L1 compression fracture is due to/associated with osteoporosis? Please document a response below PHYSICIAN RESPONSE Manifestation due to/assoic: Yes In responding to this query, please exercise your independent professional judgment. The purpose of this communication is to more accurately reflect the complexity of your patients condition. The fact that a question is asked does not imply that any particular answer is desired or expected. Thank you for your timely response to this clarification. Requestors name: Vannessa Haddad CCS,[facility] Phone # ext [phone] or [phone] THIS PHYSICIAN QUERY FORM IS A PERMANENT PART OF THE MEDICAL RECORD VANNESSA HADDAD Jan 05, 2018 13:26 MURIEL VELÁZQUEZ MD Jan 05, 2018 15:40
[2018-01-05] MEDS ORDERED: POLYETHYLENE GLYCOL 17 GM (MIRALAX) PACK PO SCH (21:00)
== END 2018-01-05 14:30 | disposition home or self-care (01) | DRG 543 ==
LOC: EDUNIT# 17:33 → ER 17:35 → 4TH 20:25
PROVIDERS: ADMIT Internal Medicine; ATTEND Internal Medicine
DX: M80.08XA Age-related osteoporosis with current pathological fracture, vertebra(e), initial encounter for fracture (principal); E87.1 Hypo-osmolality and hyponatremia; N85.9 Noninflammatory disorder of uterus, unspecified; I10 Essential (primary) hypertension; E11.9 Type 2 diabetes mellitus without complications; E78.00 Pure hypercholesterolemia, unspecified; J30.2 Other seasonal allergic rhinitis; H35.30 Unspecified macular degeneration; H40.9 Unspecified glaucoma; Z85.828 Personal history of other malignant neoplasm of skin
CPT/HCPCS: 36415; 72131; 74177; 80053; 81000; 85025; 90686; 96361; 96374

== ENCOUNTER 2018-01-06 15:00 | Outpatient (RCR) | payer MEDICARE, OTHER ==
[~2018-01-06 15:00] MED LIST changes: +ACHD5005 PO; +CHOL5000 PO; +CYCL5TAB PO; +LISI40TA PO; +NIAC500T8 PO
== END 2018-01-14 16:03 | disposition home or self-care (01) ==
PROVIDERS: ATTEND Nurse Practitioner
DX: M51.36 Other intervertebral disc degeneration, lumbar region (principal)

== ENCOUNTER → 2018-02-22 | Outpatient (CLI) | payer MEDICARE, OTHER ==
--- NOTE | 2018-02-22 18:06 | Diagnostic Imaging Report ---
INDICATION: Uterine fibroid. COMPARISON: Comparison is made with prior study from 07/10/2017. FINDINGS: The uterus measures 8.3 x 5.6 x 6.2 cm. There is a 5.3 cm fibroid in the uterus, similar to prior exam. The ovaries are not visualized. There is no free fluid. IMPRESSION: Stable fibroid when compared with exam from 07/10/2017. Dictated by: Dictated on workstation # [id number]
== END ==
LOC: RAD 13:18
PROVIDERS: ATTEND Internal Medicine
DX: D25.9 Leiomyoma of uterus, unspecified (principal)
CPT/HCPCS: 76830

== ENCOUNTER 2018-12-30 09:01 | Outpatient (RCR) | payer MEDICARE, OTHER ==
[~2018-12-30 09:01] MED LIST changes: -AMLO5TAB7 PO; +AMLO5TAB9 PO; +CYAN-41 PO; -CYAN10006 PO
== END 2018-12-30 09:52 | disposition home or self-care (01) ==
PROVIDERS: ATTEND Internal Medicine
DX: R32 Unspecified urinary incontinence (principal)

== ENCOUNTER 2019-02-16 05:37 | Outpatient (CLI) | payer MEDICARE, OTHER ==
[~2019-02-16] VITALS: Ht 162 cm; Wt 54.5 kg
== END 2019-02-16 14:50 | disposition home or self-care (01) ==
LOC: PREOP 05:37
PROVIDERS: ATTEND Specialist
DX: Z01.818 Encounter for other preprocedural examination (principal)

== ENCOUNTER 2019-02-18 08:19 | Day surgery (SDC) | payer MEDICARE, OTHER ==
[~2019-02-18] VITALS: Ht 162 cm; Wt 54.5 kg
[2019-02-18 08:30] VITALS: BP 151/71
[2019-02-18] MEDS ORDERED: PHENYLEPHRINE 10% OPHTH (NEO-SYN) 5 ML BTL OU PRN (08:30)
[2019-02-18] MEDS: TETRACAINE 0.5% OPHTH SOLN 4 ML BTL (SINGLE DOSE ONLY) OU PRN ×3 (08:30→08:42)
[2019-02-18] MEDS ORDERED: TROPICAMIDE 1% OPH SOLN (MYDRIACYL) 15 ML BTL OU PRN (08:30)
--- NOTE | 2019-02-18 09:07 | Ophthalmologist Pre-Op Note ---
Pre-Operative Progress Note H&P Reviewed The H&P was reviewed, patient examined and no changes noted. Date H&P Reviewed: Feb 18, 2019 Time H&P Reviewed: 09:07 Pre-Op Dx Secondary Cataract, Right Eye QING PALACIO MD Feb 18, 2019 09:07 POS
[2019-02-18 09:19] VITALS: BP 151/71
--- NOTE | 2019-02-18 09:37 | Ophthalmology Operative Report ---
YAG Capsulotomy PREOPERATIVE DIAGNOSIS: Secondary Cataract Left Eye POSTOPERATIVE DIAGNOSIS: Secondary Cataract Left Eye PROCEDURE: YAG Capsulotomy, left eye SURGEON: Adryan Palacio ANESTHESIA: Topical anesthesia COMPLICATIONS: None ESTIMATED BLOOD LOSS: Minimal DESCRIPTION OF PROCEDURE: After proper informed consent was obtained, the patient's, a 83 female left eye received one drop of Tropicamide and one drop of Tetracaine. The patient was then placed at the YAG laser and using a power of [3.2 ] millijoules and [ 22] bursts were used to fashion a central capsulotomy. The patient tolerated the procedure well without complications. ADRYAN PALACIO MD Feb 18, 2019 09:37 POS
--- OUTSIDE RECORDS SUMMARY | 2019-03-13 22:17 | XMS REPORT | Continuity of Care Document ---
Author Organization Unknown POS Address Unknown SP Phone Unavailable SP Allergies Active Description Code Type Severity POS Reaction Onset Reported/Identified POS to Patient Clinical Status POS Yes No Known Drug Allergies [id number] Drug SP Unknown N/A 04/25/2011 SP SP Yes metformin [id number] Drug Allergy SP CONFUSION 04/08/2017 SP Yes ciprofloxacin [id number] Jefe g Allergy SP Mild N/A 01/05/2018 SP Yes metoprolol [id number] Drug Allerg y SP N/A 01/05/2018 SP Medications There is no data. 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, SP 04/25/2011 Ot 250.00 LORNA B ANGEL WO SP TYPE II OR UNSPEC TY SP 04/25/2011 Ot 272.4 HYPE RLIPIDEMIA SP SP 04/25/2011 Ot 276.8 HYPO POTASSEMIA SP SP 04/25/2011 Ot 401.9 HYPE RTENSION NOS SP SP 04/25/2011 Ot 719.46 SHARMILA NT PAIN-L/LEG SP SP 04/25/2011 Ot 780.2 SYNC OPE AND SP SP 11/09/2012 NIKIA BABCOCK MD Ot 250.00 SP DIAB ANGEL WO COMPL, TYPE II OR UNSPEC TY SP 11/09/2012 NIKIA BABCOCK MD Ot 272.0 SP PURE HYPERCHOLESTEROLEM SP 11/09/2012 NIKIA BABCOCK MD Ot 276.51 SP DEHYDRATION SP 11/09/2012 NIKIA BABCOCK MD Ot 401.9 SP HYPERTENSION NOS SP 11/09/2012 NIKIA BABCOCK MD Ot 780.4 SP DIZZINESS AND GIDDINESS SP 11/09/2012 NIKIA BABCOCK MD Ot 787.03 SP VOMITING ALONE SP 11/09/2012 NIKIA BABCOCK MD Ot 787.91 SP DIARRHEA SP 11/09/2012 NIKIA BABCOCK MD Ot 881.00 SP OPEN WOUND OF FOREARM SP 11/09/2012 NIKIA BABCOCK MD Ot E888.9 SP FALL NOS SP 11/09/2012 NIKIA BABCOCK MD Ot V15.88 SP HISTORY OF FALL SP 11/09/2012 NIKIA BABCOCK MD Ot V58.66 SP LONG-TERM (CURRENT) USE OF ASPIRIN SP 11/09/2012 NIKIA BABCOCK MD Ot V58.69 SP OTH MED,LT,CURRENT USE SP 09/23/2013 TO [employer]ON DOOR CAPTAIN Ot 250.00 SP DIAB ANGEL WO COMPL, TYPE II OR UNSPEC TY SP 09/23/2013 TO [employer]PSON DOOR CAPTAIN Ot 715.36 SP LOC OSTEOARTH NOS-L/LEG SP 09/23/2013 TO SIMPSON DOOR CAPTAIN Ot 719.46 SP JOINT PAIN-L/LEG SP 04/24/2015 CARL ESCOTO Ot SP SP 04/25/2015 CARL ESCOTO Ot SP SP 07/22/2016 NIKIA BABCOCK MD Ot E11.9 SP TYPE 2 DIABETES MELLITUS WITHOUT COMPLIC SP 07/22/2016 NIKIA BABCOCK MD Ot I16.0 SP HYPERTENSIVE URGENCY SP 07/22/2016 NIKIA BABCOCK MD Ot Z79.84 SP FARMWORKER BULBS (CURRENT) USE OF ORAL HYPOGLYC SP 07/22/2016 NIKIA BABCOCK MD Ot Z79.899 SP OTHER FARMWORKER BULBS (CURRENT) DRUG THERAPY SP 07/22/2016 Ot 719.45 SHARMILA NT PAIN-PELVIS SP SP 07/22/2016 Ot 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 SP 07/22/2016 Ot 401.9 HYPE RTENSION NOS SP SP 07/22/2016 Ot 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 07/22/2016 Ot 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 SP 07/22/2016 Ot 780.2 SYNC OPE AND SP SP 07/22/2016 Ot 719.07 SHARMILA NT EFFUSION- SP SP 07/22/2016 Ot 729.5 PAIN IN LIMB SP SP 07/22/2016 ADALBERTO MAE MD Ot 812.41 SP SUPRCONDYL FX HUMERUS-CL SP 07/22/2016 ADALBERTO MAE MD Ot E000.8 SP OTHER EXTERNAL CAUSE STATUS SP 07/22/2016 ADALBERTO MAE MD Ot E849.0 SP ACCIDENT IN HOME SP 07/22/2016 ADALBERTO MAE MD Ot E888.9 SP FALL NOS SP 07/22/2016 ADALBERTO MAE MD Ot 719.06 SP JOINT EFFUSION-L/LEG SP 07/22/2016 ADALBERTO MAE MD Ot 959.7 SP LOWER LEG INJURY NOS SP 07/22/2016 ADALBERTO MAE MD Ot E000.8 SP OTHER EXTERNAL CAUSE STATUS SP 07/22/2016 ADALBERTO MAE MD Ot E849.0 SP ACCIDENT IN HOME SP 07/22/2016 ADALBERTO MAE MD Ot E888.9 SP FALL NOS SP 07/22/2016 ADALBERTO MAE MD Ot 719.06 SP JOINT EFFUSION-L/LEG SP 07/22/2016 ADALBERTO MAE MD Ot 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 00 SP ANGEL WO COMPL, TYPE II OR UNSPEC TY SP 07/22/2016 BOBO METZGER MD Ot 397. 0 SP VALVE DISEASE SP 07/22/2016 BOBO METZGER MD Ot 401. 9 SP NOS SP 07/22/2016 BOBO METZGER MD Ot 424. 0 SP VALVE DISORDER SP 07/22/2016 BOBO METZGER MD Ot 780. 2 SP AND COLLAPSE SP 07/22/2016 BOBO METZGER MD Ot 401. 9 SP NOS SP 07/22/2016 BOBO METZGER MD Ot 780. 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 SP 07/23/2016 NIKIA BABCOCK MD Ot E11.9 SP TYPE 2 DIABETES MELLITUS WITHOUT COMPLIC SP 07/23/2016 NIKIA BABCOCK MD Ot I16.0 SP HYPERTENSIVE URGENCY SP 07/23/2016 NIKIA BABCOCK MD Ot Z79.84 SP RESIDENTIAL (CURRENT) USE OF ORAL HYPOGLYC SP 07/23/2016 NIKIA BABCOCK MD Ot Z79.899 SP OTHER RESIDENTIAL (CURRENT) DRUG THERAPY SP 10/14/2016 CARL ESCOTO Ot E78.2 SP MIXED HYPERLIPIDEMIA SP 10/14/2016 CARL ESCOTO Ot I10 SP ESSENTIAL (PRIMARY) HYPERTENSION SP 10/14/2016 CARL ESCOTO Ot I49.5 SP SICK SINUS SYNDROME SP 10/14/2016 CARL ESCOTO Ot 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 9 SP 2 DIABETES MELLITUS WITHOUT COMPLIC SP 04/09/2017 MURIEL VELÁZQUEZ MD Ot E78. 5 SP UNSPECIFIED SP 04/09/2017 MURIEL VELÁZQUEZ MD Ot I10 SP (PRIMARY) HYPERTENSION SP 04/09/2017 MURIEL VELÁZQUEZ MD Ot N85. 9 SP DISORDER OF UTERUS, UNSP SP 04/09/2017 MURIEL VELÁZQUEZ MD Ot R10. 84 SP ABDOMINAL PAIN SP 04/09/2017 MURIEL VELÁZQUEZ MD Ot Z79. 82 SP TERM (CURRENT) USE OF ASPIRIN SP 04/09/2017 MURIEL VELÁZQUEZ MD Ot Z79. 84 SP TERM (CURRENT) USE OF ORAL HYPOGLYC SP 04/09/2017 MURIEL VELÁZQUEZ MD Ot Z79.899 SP OTHER RESIDENTIAL (CURRENT) DRUG THERAPY SP 07/08/2017 Ot 719.07 SHARMILA NT EFFUSION- SP SP 07/08/2017 Ot 729.5 PAIN IN LIMB SP SP 07/08/2017 ADALBERTO MAE MD Ot 812.41 SP SUPRCONDYL FX HUMERUS-CL SP 07/08/2017 ADALBERTO MAE MD Ot E000.8 SP OTHER EXTERNAL CAUSE STATUS SP 07/08/2017 ADALBERTO MAE MD Ot E849.0 SP ACCIDENT IN HOME SP 07/08/2017 ADALBERTO MAE MD Ot E888.9 SP FALL NOS SP 07/08/2017 ADALBERTO MAE MD Ot 719.06 SP JOINT EFFUSION-L/LEG SP 07/08/2017 ADALBERTO MAE MD Ot 959.7 SP LOWER LEG INJURY NOS SP 07/08/2017 AADLBERTO MAE MD Ot E000.8 SP OTHER EXTERNAL CAUSE STATUS SP 07/08/2017 ADALBERTO MAE MD Ot E849.0 SP ACCIDENT IN HOME SP 07/08/2017 ADALBERTO MAE MD Ot E888.9 SP FALL NOS SP 07/08/2017 ADALBERTO MAE MD Ot 719.06 SP JOINT EFFUSION-L/LEG SP 07/08/2017 ADALBERTO MAE MD Ot 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 00 SP ANGEL WO COMPL, TYPE II OR UNSPEC TY SP 07/08/2017 BOBO METZGER MD Ot 397. 0 SP VALVE DISEASE SP 07/08/2017 BOBO METZGER MD Ot 401. 9 SP NOS SP 07/08/2017 BOBO METZGER MD Ot 424. 0 SP VALVE DISORDER SP 07/08/2017 BOBO METZGER MD Ot 780. 2 SP AND COLLAPSE SP 07/08/2017 BOBO METZGER MD Ot 401. 9 SP NOS SP 07/08/2017 BOBO METZGER MD Ot 780. 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 12/22/2017 ADALBERTO MAE MD Ot 812.41 SP SUPRCONDYL FX HUMERUS-CL SP 12/22/2017 ADALBERTO MAE MD Ot E000.8 SP OTHER EXTERNAL CAUSE STATUS SP 12/22/2017 ADALBERTO MAE MD Ot E849.0 SP ACCIDENT IN HOME SP 12/22/2017 ADALBERTO MAE MD Ot E888.9 SP FALL NOS SP 12/22/2017 ADALBERTO MAE MD Ot 719.06 SP JOINT EFFUSION-L/LEG SP 12/22/2017 ADALBERTO MAE MD Ot 959.7 SP LOWER LEG INJURY NOS SP 12/22/2017 ADALBERTO MAE MD Ot E000.8 SP OTHER EXTERNAL CAUSE STATUS SP 12/22/2017 ADALBERTO MAE MD Ot E849.0 SP ACCIDENT IN HOME SP 12/22/2017 ADALBERTO MAE MD Ot E888.9 SP FALL NOS SP 12/22/2017 ADALBERTO MAE MD Ot 719.06 SP JOINT EFFUSION-L/LEG SP 12/22/2017 ADALBERTO MAE MD Ot 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 00 SP ANGEL WO COMPL, TYPE II OR UNSPEC TY SP 12/22/2017 BOBO METZGER MD Ot 397. 0 SP VALVE DISEASE SP 12/22/2017 BOBO METZGER MD Ot 401. 9 SP NOS SP 12/22/2017 BOBO METZGER MD Ot 424. 0 SP VALVE DISORDER SP 12/22/2017 BOBO METZGER MD Ot 780. 2 SP AND COLLAPSE SP 12/22/2017 BOBO METZGER MD Ot 401. 9 SP NOS SP 12/22/2017 DOMENICA MD, BASHAR J Ot 780. 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 W/O MYELOPATHY OR RADICULOPA SP 12/23/2017 MEAGAN MURILLO APRN Ot M48.56XA SP COLLAPSED VERTEBRA, NEC, LUMBAR REGION, SP 12/23/2017 MEAGAN MURILLO APRN Ot X50.0XXA SP OVEREXERTION FROM STRENUOUS MOVEMENT OR SP 01/05/2018 MEAGAN MURILLO DOOR CAPTAIN Ot 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, SP 01/05/2018 AWAIS GRUBER MD Ot E11 .9 SP 2 DIABETES MELLITUS WITHOUT COMPLIC SP 01/05/2018 AWAIS GRUBER MD Ot E78.00 SP PURE HYPERCHOLESTEROLEMIA, UNSPECIFIED SP 01/05/2018 AWAIS GRUBER MD Ot E87 .1 SPOSMOLALITY AND HYPONATREMIA SP 01/05/2018 AWAIS GRUBER MD Ot H35.30 SP UNSPECIFIED MACULAR DEGENERATION SP 01/05/2018 AWAIS GRUBER MD Ot H40 .9 SP GLAUCOMA SP 01/05/2018 AWAIS GRUBER MD Ot I10 SP (PRIMARY) HYPERTENSION SP 01/05/2018 AWAIS GRUBER MD Ot J30 .2 SP SEASONAL ALLERGIC RHINITIS SP 01/05/2018 AWAIS GRUBER MD Ot M80.08XA SP AGE-REL OSTEOPOR W CURRENT PATH FRACTURE SP 01/05/2018 AWAIS GRUBER MD Ot N85 .9 SP DISORDER OF UTERUS, UNSP SP 01/05/2018 AWAIS GRUBER MD Ot Z85.828 SP PERSONAL HISTORY OF OTHER MALIGNANT NEOP SP 01/11/2018 MEAGAN MURILLO DOOR CAPTAIN Ot 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, SP 01/14/2018 MEAGAN MURILLO DOOR CAPTAIN Ot 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, SP 01/15/2018 MEAGAN MURILLO DOOR CAPTAIN Ot M47.816 SP SPONDYLOSIS W/O MYELOPATHY OR RADICULOPA SP 01/15/2018 MEAGAN MURILLO DOOR CAPTAIN Ot M48.56XA SP COLLAPSED VERTEBRA, NEC, LUMBAR REGION, SP 01/15/2018 MEAGAN MURILLO DOOR CAPTAIN Ot X50.0XXA SP OVEREXERTION FROM STRENUOUS MOVEMENT OR SP 02/23/2018 CONRADO FELIPE, SYDNEE Burnett Ot D25.9 SP OF UTERUS, UNSPECIFIED SP 12/30/2018 CONRADO FELIPE, SYDNEE Burnett Ot R32 SP URINARY INCONTINENCE SP 02/16/2019 QING PALACIO MD Ot Z01.818 SP ENCOUNTER FOR OTHER PREPROCEDURAL EXAMIN SP 02/18/2019 QING PALACIO MD Ot E78.00 SP PURE HYPERCHOLESTEROLEMIA, UNSPECIFIED SP 02/18/2019 QING PALACIO MD Ot H26.492 SP OTHER SECONDARY CATARACT, LEFT EYE SP 02/18/2019 QING PALACIO MD Ot M19.90 SP UNSPECIFIED OSTEOARTHRITIS, UNSPECIFIED SP 02/18/2019 QING PALACIO MD Ot Z79.82 SP FARMWORKER BULBS (CURRENT) USE OF ASPIRIN SP 02/18/2019 QING PALACIO MD Ot Z79.891 SP FARMWORKER BULBS (CURRENT) USE OF OPIATE ANALGE SP 02/18/2019 QING PALACIO MD Ot Z79.899 SP OTHER RESIDENTIAL (CURRENT) DRUG THERAPY SP 02/18/2019 QING PALACIO MD Ot Z80 .0 SP HISTORY OF MALIGNANT NEOPLASM OF SP 02/18/2019 QING PALACIO MD Ot Z83 .3 SP HISTORY OF DIABETES MELLITUS SP 02/18/2019 QING PALACIO MD Ot Z83.511 SP FAMILY HISTORY OF GLAUCOMA SP 02/18/2019 QING PALACIO MD Ot Z83.518 SP FAMILY HISTORY OF OTHER SPECIFIED EYE DI SP 02/22/2019 QING PALACIO MD Ot E78.00 SP PURE HYPERCHOLESTEROLEMIA, UNSPECIFIED SP 02/22/2019 QING PALACIO MD Ot H26.492 SP OTHER SECONDARY CATARACT, LEFT EYE SP 02/22/2019 QING PALACIO MD Ot M19.90 SP UNSPECIFIED OSTEOARTHRITIS, UNSPECIFIED SP 02/22/2019 QING PALACIO MD Ot Z79.82 SP RESIDENTIAL (CURRENT) USE OF ASPIRIN SP 02/22/2019 QING PALACIO MD Ot Z79.891 SP RESIDENTIAL (CURRENT) USE OF OPIATE ANALGE SP 02/22/2019 QING PALACIO MD Ot Z79.899 SP OTHER FARMWORKER BULBS (CURRENT) DRUG THERAPY SP 02/22/2019 QING PALACIO MD Ot Z80 .0 SP HISTORY OF MALIGNANT NEOPLASM OF SP 02/22/2019 QING PALACIO MD Ot Z83 .3 SP HISTORY OF DIABETES MELLITUS SP 02/22/2019 QING PALACIO MD Ot Z83.511 SP FAMILY HISTORY OF GLAUCOMA SP 02/22/2019 QING PALACIO MD Ot Z83.518 SP FAMILY HISTORY OF OTHER SPECIFIED EYE DI SP 02/24/2019 QING PALACIO MD Ot E78.00 SP PURE HYPERCHOLESTEROLEMIA, UNSPECIFIED SP 02/24/2019 QING PALACIO MD Ot H26.492 SP OTHER SECONDARY CATARACT, LEFT EYE SP 02/24/2019 QING PALACIO MD Ot M19.90 SP UNSPECIFIED OSTEOARTHRITIS, UNSPECIFIED SP 02/24/2019 QING PALACIO MD Ot Z79.82 SP RESIDENTIAL (CURRENT) USE OF ASPIRIN SP 02/24/2019 QING PALACIO MD Ot Z79.891 SP FARMWORKER BULBS (CURRENT) USE OF OPIATE ANALGE SP 02/24/2019 QING PALACIO MD Ot Z79.899 SP OTHER FARMWORKER BULBS (CURRENT) DRUG THERAPY SP 02/24/2019 QING PALACIO MD Ot Z80 .0 SP HISTORY OF MALIGNANT NEOPLASM OF SP 02/24/2019 QING PALACIO MD L Ot Z83 .3 SP HISTORY OF DIABETES MELLITUS SP 02/24/2019 QING PALACIO MD Ot Z83.511 SP FAMILY HISTORY OF GLAUCOMA SP 02/24/2019 QING PALACIO MD Ot Z83.518 SP FAMILY HISTORY OF OTHER SPECIFIED EYE DI SP 02/25/2019 QING PALACIO MD Ot E78.00 SP PURE HYPERCHOLESTEROLEMIA, UNSPECIFIED SP 02/25/2019 QING PALACIO MD Ot H26.492 SP OTHER SECONDARY CATARACT, LEFT EYE SP 02/25/2019 QING PALACIO MD Ot M19.90 SP UNSPECIFIED OSTEOARTHRITIS, UNSPECIFIED SP 02/25/2019 QING PALACIO MD Ot Z79.82 SP RESIDENTIAL (CURRENT) USE OF ASPIRIN SP 02/25/2019 QING PALACIO MD Ot Z79.891 SP RESIDENTIAL (CURRENT) USE OF OPIATE ANALGE SP 02/25/2019 QING PALACIO MD Ot Z79.899 SP OTHER FARMWORKER BULBS (CURRENT) DRUG THERAPY SP 02/25/2019 QING PALACIO MD Ot Z80 .0 SP HISTORY OF MALIGNANT NEOPLASM OF SP 02/25/2019 QING PALACIO MD Ot Z83 .3 SP HISTORY OF DIABETES MELLITUS SP 02/25/2019 QING PALACIO MD Ot Z83.511 SP FAMILY HISTORY OF GLAUCOMA SP 02/25/2019 QING PALACIO MD Ot Z83.518 SP FAMILY HISTORY OF OTHER SPECIFIED EYE DI SP 02/25/2019 QING PALACIO MD Ot E78.00 SP PURE HYPERCHOLESTEROLEMIA, UNSPECIFIED SP 02/25/2019 QING PALACIO MD Ot H26.492 SP OTHER SECONDARY CATARACT, LEFT EYE SP 02/25/2019 QING PALACIO MD Ot M19.90 SP UNSPECIFIED OSTEOARTHRITIS, UNSPECIFIED SP 02/25/2019 QING PALACIO MD Ot Z79.82 SP FARMWORKER BULBS (CURRENT) USE OF ASPIRIN SP 02/25/2019 QING PALACIO MD Ot Z79.891 SP FARMWORKER BULBS (CURRENT) USE OF OPIATE ANALGE SP 02/25/2019 QING PALACIO MD Ot Z79.899 SP OTHER FARMWORKER BULBS (CURRENT) DRUG THERAPY SP 02/25/2019 QING PALACIO MD Ot Z80 .0 SP HISTORY OF MALIGNANT NEOPLASM OF SP 02/25/2019 QING PALACIO MD Ot Z83 .3 SP HISTORY OF DIABETES MELLITUS SP 02/25/2019 QING PALACIO MD Ot Z83.511 SP FAMILY HISTORY OF GLAUCOMA SP 02/25/2019 QING PALACIO MD Ot Z83.518 SP FAMILY HISTORY OF OTHER SPECIFIED EYE DI SP Procedures There is no data. Results Test Result Range POS Complete blood count (CBC) with automate d white blood cell (WBC) differential - POS 17:00 Blood leukocytes automated count (number/volume) 4.8 10*3/uL POS 4.3-11.0 SP Blood erythrocytes automated count (number/volume) 4.15 10*6/uL SP 4.35-5.85 SP Venous blood hemoglobin measurement (mass/volume) 12.8 g/dL SP16.0 Blood hematocrit (volume fraction) 37 % 35-52 SP Automated erythrocyte mean corpuscular volume 88 [ foz_us] SP99 Automated erythrocyte mean corpuscular h emoglobin (mass per erythrocyte) SP 31 pg 25-34 SP Automated erythrocyte mean corpuscular h emoglobin concentration measurement SP 35 g/dL 32-36 SP Automated erythrocyte distribution width ratio 12. 9 % 10.0- SP Automated blood platelet count (count/volume) 204 10*3/uL SP400 Automated blood platelet mean volume measurement 9.7 [foz_us] SP 7.4-10.4 SP Automated blood neutrophils/100 leukocytes 55 % 42-75 SP Automated blood lymphocytes/100 leukocytes 31 % 12-44 SP Blood monocytes/100 leukocytes 11 % 0-12 SP Automated blood eosinophils/100 leukocytes 3 % 0-10 SP Automated blood basophils/100 leukocytes 0 % 0-10 SP Blood neutrophils automated count (number/volume) 2.6 10*3 SP7.8 Blood lymphocytes automated count (number/volume) 1.5 10*3 SP4.0 Blood monocytes automated count (number/volume) 0. 5 10*3 SP1.0 Automated eosinophil count 0.1 10*3/uL 0 .0-0.3 SP Automated blood basophil count (count/volume) 0.0 10*3/uL SP0.1 Fibrin D-dimer FEU measurement in platel et poor plasma (mass/volume) - 07/22/16 POS Fibrin D-dimer FEU measurement in platelet poor plasma (mass/volume) POS ug/mL 0.00-0.49 SP Comprehensive metabolic panel - 07/22/16 17:00 POS Serum or plasma sodium measurement (moles/volume) 133 mmol/L SP 135-145 SP Serum or plasma potassium measurement (moles/volume) 4.7 mmol/L SP 3.6-5.0 SP Serum or plasma chloride measurement (moles/volume) 98 mmol/L SP 98-107 SP Carbon dioxide 26 mmol/L 21-32 SP Serum or plasma anion gap determination (moles/volume) 9 mmol/L SP 5-14 SP Serum or plasma urea nitrogen measurement (mass/volume ) 16 mg/dL SP 7-18 SP Serum or plasma creatinine measurement (mass/volume) 1.17 mg/dL SP 0.60-1.30 SP Serum or plasma urea nitrogen/creatinine mass ratio 14 NRG SP Serum or plasma creatinine measurement w ith calculation of estimated glomerular SP rate 44 NRG SP Serum or plasma glucose measurement (mass/volume) 96 mg/dL SP105 Serum or plasma calcium measurement (mass/volume) 10.4 mg/dL SP 8.5-10.1 SP Serum or plasma total bilirubin measurement (mass/volu me) 0.7 mg/dL SP 0.1-1.0 SP Serum or plasma alkaline phosphatase shorty surement (enzymatic activity/volume) SP 83 U/L 40-136 SP Serum or plasma aspartate aminotransfera se measurement (enzymatic SP 23 U/L 5-34 SP Serum or plasma alanine aminotransferase measurement (enzymatic activity/volume) SP 14 U/L 0-55 SP Serum or plasma protein measurement (mass/volume) 7.2 g/dL SP8.2 Serum or plasma albumin measurement (mass/volume) 4.5 g/dL SP4.5 Serum or plasma troponin i.cardiac measu rement (mass/volume) - 07/22/16 17:00 POS Serum or plasma troponin i.cardiac measurement (mass/v olume) < ng/mL POS <0.30 SP Complete urinalysis with reflex to cultu re - 04/08/17 07:30 POS Urine color determination YELLOW NRG SP Urine clarity determination CLEAR NR G SP Urine pH measurement by test strip 7 5-9 SP Specific gravity of urine by test strip 1.010 1.016-1.022 SP Urine protein assay by test strip, semi-quantitative NEGATIVE SP NEGATIVE SP Urine glucose detection by automated test strip NE GATIVE SP Erythrocytes detection in urine sediment by light micr oscopy NEGATIVE SP NEGATIVE SP Urine ketones detection by automated test strip NE GATIVE SP Urine nitrite detection by test strip NEGATIVE NEGATIVE SP Urine total bilirubin detection by test strip NEGA TIVE SP Urine urobilinogen measurement by automated test strip (mass/volume) SP NORMAL SP Urine leukocyte esterase detection by dipstick 1+ NEGATIVE SP Automated urine sediment erythrocyte cou nt by microscopy (number/high power SP NONE NRG SP Automated urine sediment leukocyte count by microscopy (number/high power field) SP NONE NRG SP Bacteria detection in urine sediment by light microsco py TRACE SP NRG SP Squamous epithelial cells detection in u rine sediment by light microscopy SP RARE NRG SP Crystals detection in urine sediment by light microsco py NONE SP NRG SP Casts detection in urine sediment by light microscopy NONE SP Mucus detection in urine sediment by light microscopy NEGATIVE SP NRG SP Complete urinalysis with reflex to culture NO NRG SP Complete blood count (CBC) with automate d white blood cell (WBC) differential - POS 08:15 Blood leukocytes automated count (number/volume) 5.6 10*3/uL POS 4.3-11.0 SP Blood erythrocytes automated count (number/volume) 4.19 10*6/uL SP 4.35-5.85 SP Venous blood hemoglobin measurement (mass/volume) 12.9 g/dL SP16.0 Blood hematocrit (volume fraction) 37 % 35-52 SP Automated erythrocyte mean corpuscular volume 89 [ foz_us] SP99 Automated erythrocyte mean corpuscular h emoglobin (mass per erythrocyte) SP 31 pg 25-34 SP Automated erythrocyte mean corpuscular h emoglobin concentration measurement SP 35 g/dL 32-36 SP Automated erythrocyte distribution width ratio 12. 7 % 10.0- SP Automated blood platelet count (count/volume) 219 10*3/uL SP400 Automated blood platelet mean volume measurement 9.7 [foz_us] SP 7.4-10.4 SP Automated blood neutrophils/100 leukocytes 67 % 42-75 SP Automated blood lymphocytes/100 leukocytes 24 % 12-44 SP Blood monocytes/100 leukocytes 7 % 0-12 SP Automated blood eosinophils/100 leukocytes 2 % 0-10 SP Automated blood basophils/100 leukocytes 0 % 0-10 SP Blood neutrophils automated count (number/volume) 3.7 10*3 SP7.8 Blood lymphocytes automated count (number/volume) 1.3 10*3 SP4.0 Blood monocytes automated count (number/volume) 0. 4 10*3 SP1.0 Automated eosinophil count 0.1 10*3/uL 0 .0-0.3 SP Automated blood basophil count (count/volume) 0.0 10*3/uL SP0.1 Comprehensive metabolic panel - 04/08/17 08:15 POS Serum or plasma sodium measurement (moles/volume) 139 mmol/L SP 135-145 SP Serum or plasma potassium measurement (moles/volume) 4.3 mmol/L SP 3.6-5.0 SP Serum or plasma chloride measurement (moles/volume) 105 mmol/L SP 98-107 SP Carbon dioxide 24 mmol/L 21-32 SP Serum or plasma anion gap determination (moles/volume) 10 mmol/L SP 5-14 SP Serum or plasma urea nitrogen measurement (mass/volume ) 19 mg/dL SP 7-18 SP Serum or plasma creatinine measurement (mass/volume) 1.19 mg/dL SP 0.60-1.30 SP Serum or plasma urea nitrogen/creatinine mass ratio 16 NRG SP Serum or plasma creatinine measurement w ith calculation of estimated glomerular SP rate 43 NRG SP Serum or plasma glucose measurement (mass/volume) 155 mg/dL SP105 Serum or plasma calcium measurement (mass/volume) 10.4 mg/dL SP 8.5-10.1 SP Serum or plasma total bilirubin measurement (mass/volu me) 0.5 mg/dL SP 0.1-1.0 SP Serum or plasma alkaline phosphatase shorty surement (enzymatic activity/volume) SP 77 U/L 40-136 SP Serum or plasma aspartate aminotransfera se measurement (enzymatic SP 17 U/L 5-34 SP Serum or plasma alanine aminotransferase measurement (enzymatic activity/volume) SP 17 U/L 0-55 SP Serum or plasma protein measurement (mass/volume) 6.7 g/dL SP8.2 Serum or plasma albumin measurement (mass/volume) 4.2 g/dL SP4.5 Lipase - 04/08/17 08:15 POS Lipase 15 U/L 8-78 SP CA 125 - 04/08/17 08:15 POS CA 125 C 8.2 u[iU]/mL 2.0-30.0 SP Capillary blood glucose measurement by g lucometer (mass/volume) - 04/08/17 16:04 POS Capillary blood glucose measurement by glucometer (mas s/volume) 129 POS 70-110 SP Capillary blood glucose measurement by g lucometer (mass/volume) - 04/08/17 20:35 POS Capillary blood glucose measurement by glucometer (mas s/volume) 96 POS 70-110 SP Capillary blood glucose measurement by g lucometer (mass/volume) - 04/09/17 05:17 POS Capillary blood glucose measurement by glucometer (mas s/volume) 99 POS 70-110 SP Complete blood count (CBC) with automate d white blood cell (WBC) differential - POS 05:30 Blood leukocytes automated count (number/volume) 5.5 10*3/uL POS 4.3-11.0 SP Blood erythrocytes automated count (number/volume) 3.59 10*6/uL SP 4.35-5.85 SP Venous blood hemoglobin measurement (mass/volume) 10.9 g/dL SP16.0 Blood hematocrit (volume fraction) 33 % 35-52 SP Automated erythrocyte mean corpuscular volume 91 [ foz_us] SP99 Automated erythrocyte mean corpuscular h emoglobin (mass per erythrocyte) SP 30 pg 25-34 SP Automated erythrocyte mean corpuscular h emoglobin concentration measurement SP 33 g/dL 32-36 SP Automated erythrocyte distribution width ratio 13. 0 % 10.0- SP Automated blood platelet count (count/volume) 188 10*3/uL SP400 Automated blood platelet mean volume measurement 10.0 [foz_us] SP 7.4-10.4 SP Automated blood neutrophils/100 leukocytes 61 % 42-75 SP Automated blood lymphocytes/100 leukocytes 28 % 12-44 SP Blood monocytes/100 leukocytes 9 % 0-12 SP Automated blood eosinophils/100 leukocytes 1 % 0-10 SP Automated blood basophils/100 leukocytes 0 % 0-10 SP Blood neutrophils automated count (number/volume) 3.4 10*3 SP7.8 Blood lymphocytes automated count (number/volume) 1.5 10*3 SP4.0 Blood monocytes automated count (number/volume) 0. 5 10*3 SP1.0 Automated eosinophil count 0.1 10*3/uL 0 .0-0.3 SP Automated blood basophil count (count/volume) 0.0 10*3/uL SP0.1 Whole blood basic metabolic panel - 03/21 05/06 05:30 POS Serum or plasma sodium measurement (moles/volume) 139 mmol/L SP 135-145 SP Serum or plasma potassium measurement (moles/volume) 4.4 mmol/L SP 3.6-5.0 SP Serum or plasma chloride measurement (moles/volume) 107 mmol/L SP 98-107 SP Carbon dioxide 25 mmol/L 21-32 SP Serum or plasma anion gap determination (moles/volume) 7 mmol/L SP 5-14 SP Serum or plasma urea nitrogen measurement (mass/volume ) 15 mg/dL SP 7-18 SP Serum or plasma creatinine measurement (mass/volume) 0.98 mg/dL SP 0.60-1.30 SP Serum or plasma urea nitrogen/creatinine mass ratio 15 NRG SP Serum or plasma creatinine measurement w ith calculation of estimated glomerular SP rate 54 NRG SP Serum or plasma glucose measurement (mass/volume) 96 mg/dL SP105 Serum or plasma calcium measurement (mass/volume) 9.4 mg/dL SP10.1 Complete blood count (CBC) with automate d white blood cell (WBC) differential - POS 19:20 Blood leukocytes automated count (number/volume) 6.9 10*3/uL POS 4.3-11.0 SP Blood erythrocytes automated count (number/volume) 4.15 10*6/uL SP 4.35-5.85 SP Venous blood hemoglobin measurement (mass/volume) 12.7 g/dL SP16.0 Blood hematocrit (volume fraction) 35 % 35-52 SP Automated erythrocyte mean corpuscular volume 84 [ foz_us] SP99 Automated erythrocyte mean corpuscular h emoglobin (mass per erythrocyte) SP 31 pg 25-34 SP Automated erythrocyte mean corpuscular h emoglobin concentration measurement SP 36 g/dL 32-36 SP Automated erythrocyte distribution width ratio 12. 3 % 10.0- SP Automated blood platelet count (count/volume) 297 10*3/uL SP400 Automated blood platelet mean volume measurement 8.9 [foz_us] SP 7.4-10.4 SP Automated blood neutrophils/100 leukocytes 60 % 42-75 SP Automated blood lymphocytes/100 leukocytes 25 % 12-44 SP Blood monocytes/100 leukocytes 12 % 0-12 SP Automated blood eosinophils/100 leukocytes 2 % 0-10 SP Automated blood basophils/100 leukocytes 0 % 0-10 SP Blood neutrophils automated count (number/volume) 4.2 10*3 SP7.8 Blood lymphocytes automated count (number/volume) 1.8 10*3 SP4.0 Blood monocytes automated count (number/volume) 0. 8 10*3 SP1.0 Automated eosinophil count 0.1 10*3/uL 0 .0-0.3 SP Automated blood basophil count (count/volume) 0.0 10*3/uL SP0.1 Complete urinalysis with reflex to cultu re - 01/04/18 19:20 POS Urine color determination YELLOW NRG SP Urine clarity determination CLEAR NR G SP Urine pH measurement by test strip 7 5-9 SP Specific gravity of urine by test strip 1.010 1.016-1.022 SP Urine protein assay by test strip, semi-quantitative NEGATIVE SP NEGATIVE SP Urine glucose detection by automated test strip NE GATIVE SP Erythrocytes detection in urine sediment by light micr oscopy NEGATIVE SP NEGATIVE SP Urine ketones detection by automated test strip NE GATIVE SP Urine nitrite detection by test strip NEGATIVE NEGATIVE SP Urine total bilirubin detection by test strip NEGA TIVE SP Urine urobilinogen measurement by automated test strip (mass/volume) SP NORMAL SP Urine leukocyte esterase detection by dipstick NEG ATIVE SP Automated urine sediment erythrocyte cou nt by microscopy (number/high power SP NONE NRG SP Automated urine sediment leukocyte count by microscopy (number/high power field) SP RARE NRG SP Bacteria detection in urine sediment by light microsco py NEGATIVE SP NRG SP Crystals detection in urine sediment by light microsco py NONE SP NRG SP Casts detection in urine sediment by light microscopy NONE SP Mucus detection in urine sediment by light microscopy NEGATIVE SP NRG SP Complete urinalysis with reflex to culture NO NRG SP Comprehensive metabolic panel - 01/04/18 19:20 POS Serum or plasma sodium measurement (moles/volume) 123 mmol/L SP 135-145 SP Serum or plasma potassium measurement (moles/volume) 4.4 mmol/L SP 3.6-5.0 SP Serum or plasma chloride measurement (moles/volume) 89 mmol/L SP 98-107 SP Carbon dioxide 23 mmol/L 21-32 SP Serum or plasma anion gap determination (moles/volume) 11 mmol/L SP 5-14 SP Serum or plasma urea nitrogen measurement (mass/volume ) 19 mg/dL SP 7-18 SP Serum or plasma creatinine measurement (mass/volume) 1.24 mg/dL SP 0.60-1.30 SP Serum or plasma urea nitrogen/creatinine mass ratio 15 NRG SP Serum or plasma creatinine measurement w ith calculation of estimated glomerular SP rate 41 NRG SP Serum or plasma glucose measurement (mass/volume) 150 mg/dL SP105 Serum or plasma calcium measurement (mass/volume) 10.5 mg/dL SP 8.5-10.1 SP Serum or plasma total bilirubin measurement (mass/volu me) 0.4 mg/dL SP 0.1-1.0 SP Serum or plasma alkaline phosphatase shorty surement (enzymatic activity/volume) SP 97 U/L 40-136 SP Serum or plasma aspartate aminotransfera se measurement (enzymatic SP 18 U/L 5-34 SP Serum or plasma alanine aminotransferase measurement (enzymatic activity/volume) SP 22 U/L 0-55 SP Serum or plasma protein measurement (mass/volume) 6.7 g/dL SP8.2 Serum or plasma albumin measurement (mass/volume) 4.2 g/dL SP4.5 CALCIUM CORRECTED 10.3 mg/dL 8.5-10.1 SP Complete blood count (CBC) with automate d white blood cell (WBC) differential - POS 05:35 Blood leukocytes automated count (number/volume) 4.3 10*3/uL POS 4.3-11.0 SP Blood erythrocytes automated count (number/volume) 3.56 10*6/uL SP 4.35-5.85 SP Venous blood hemoglobin measurement (mass/volume) 11.1 g/dL SP16.0 Blood hematocrit (volume fraction) 30 % 35-52 SP Automated erythrocyte mean corpuscular volume 85 [ foz_us] SP99 Automated erythrocyte mean corpuscular h emoglobin (mass per erythrocyte) SP 31 pg 25-34 SP Automated erythrocyte mean corpuscular h emoglobin concentration measurement SP 37 g/dL 32-36 SP Automated erythrocyte distribution width ratio 12. 3 % 10.0- SP Automated blood platelet count (count/volume) 241 10*3/uL SP400 Automated blood platelet mean volume measurement 8.9 [foz_us] SP 7.4-10.4 SP Automated blood neutrophils/100 leukocytes 46 % 42-75 SP Automated blood lymphocytes/100 leukocytes 36 % 12-44 SP Blood monocytes/100 leukocytes 15 % 0-12 SP Automated blood eosinophils/100 leukocytes 2 % 0-10 SP Automated blood basophils/100 leukocytes 1 % 0-10 SP Blood neutrophils automated count (number/volume) 2.0 10*3 SP7.8 Blood lymphocytes automated count (number/volume) 1.6 10*3 SP4.0 Blood monocytes automated count (number/volume) 0. 7 10*3 SP1.0 Automated eosinophil count 0.1 10*3/uL 0 .0-0.3 SP Automated blood basophil count (count/volume) 0.0 10*3/uL SP0.1 Comprehensive metabolic panel - 01/05/18 05:35 POS Serum or plasma sodium measurement (moles/volume) 133 mmol/L SP 135-145 SP Serum or plasma potassium measurement (moles/volume) 4.2 mmol/L SP 3.6-5.0 SP Serum or plasma chloride measurement (moles/volume) 103 mmol/L SP 98-107 SP Carbon dioxide 23 mmol/L 21-32 SP Serum or plasma anion gap determination (moles/volume) 7 mmol/L SP 5-14 SP Serum or plasma urea nitrogen measurement (mass/volume ) 14 mg/dL SP 7-18 SP Serum or plasma creatinine measurement (mass/volume) 0.85 mg/dL SP 0.60-1.30 SP Serum or plasma urea nitrogen/creatinine mass ratio 16 NRG SP Serum or plasma creatinine measurement w ith calculation of estimated glomerular SP rate > NRG SP Serum or plasma glucose measurement (mass/volume) 102 mg/dL SP105 Serum or plasma calcium measurement (mass/volume) 9.3 mg/dL SP10.1 Serum or plasma total bilirubin measurement (mass/volu me) 0.3 mg/dL SP 0.1-1.0 SP Serum or plasma alkaline phosphatase shorty surement (enzymatic activity/volume) SP 80 U/L 40-136 SP Serum or plasma aspartate aminotransfera se measurement (enzymatic SP 12 U/L 5-34 SP Serum or plasma alanine aminotransferase measurement (enzymatic activity/volume) SP 18 U/L 0-55 SP Serum or plasma protein measurement (mass/volume) 5.4 g/dL SP8.2 Serum or plasma albumin measurement (mass/volume) 3.5 g/dL SP4.5 CALCIUM CORRECTED 9.7 mg/dL 8.5-10.1 SP Encounters ACCT No. Visit Date/Time Discharge Status POS Pt. Type Provider Facility Loc./Un it POS Complaint POS [id number] 02/18/2019 08:19:00 019 09:19:00 SP DIS Outpatient QING PALACIO MD Via [facility] SDC YAG SP [id number] 02/16/2019 05:37:00 019 14:50:00 SP DIS Outpatient QING PALACIO MD [facility] PREOP LEFT EYE YAG SP [id number] 12/30/2018 09:01:00 019 09:52:00 SP DIS [facility] SP [id number] 02/22/2018 13:18:00 018 23:59:59 SP CLS Outpatient SYDNEE CAMP MD [facility] RAD UTERINE FIBROID SP [id number] 01/06/2018 15:00:00 018 16:03:00 SP DIS Outpatient MEAGAN MURILLO APRN Via [facility] REHAB BACK PAIN; DDD SP [id number] 01/04/2018 20:25:00 018 14:30:00 SP DIS Inpatient YASMANI FELIPE, AWAIS Gonzales Via [facility] 4TH HYPONATREMIA,BACK PAIN,L1 CO MPRESSION FX SP [id number] 12/22/2017 14:39:00 018 23:59:59 SP CLS Outpatient MEAGAN MURILLO APRN Via [facility] RAD LOW BACK PAIN SP [id number] 07/10/2017 10:37:00 018 23:59:59 SP CLS Outpatient BILLY FINK DO S Via [facility] RAD UTERINE FIBROID SP [id number] 04/08/2017 10:26:00 017 10:50:00 SP DIS Inpatient MELANIA FELIPE, MURIEL Berman Via [facility] 4TH ABDOMINAL PAIN SP [id number] 09/22/2016 12:46:00 017 23:59:59 SP CLS Outpatient WILLIAM ESCOTO SP [facility] CARD I65.23,I10,E 78.2 SP [id number] 07/22/2016 16:33:00 017 17:57:00 SP DIS Emergency NIKIA BABCOCK MD Via [facility] ER ELEVATED BLOOD PRESS URE SP [id number] 03/30/2015 11:54:00 015 23:59:59 SP CLS Outpatient WILLIAM ESCOTO K SP [facility] RAD STENOSIS, HT N,HLP [id number] 09/23/2013 16:33:00 014 18:30:00 SP DIS Emergency TO [employer] [facility] ER R KNEE PAIN SP [id number] 03/09/2013 07:35:00 013 23:59:59 SP CLS Outpatient BOBO METZGER MD Via [facility] RAD SYNCOPE,DM,HTN SP [id number] 03/03/2013 09:17:00 013 23:59:59 SP CLS Outpatient BOBO METZGER MD Via [facility] CARD SYNCOPE,DM,HTN SP [id number] 01/19/2013 14:36:00 013 23:59:59 SP CLS Outpatient ADALBERTO MAE MD Via [facility] RAD LT KNEE PAIN,FALL SP [id number] 01/19/2013 11:05:00 013 23:59:59 SP CLS Outpatient ADALBERTO MAE MD Via [facility] RAD FALL,PAIN AND SWELLI NG SP [id number] 01/07/2013 09:48:00 013 23:59:59 SP CLS Outpatient ADALBERTO MAE MD Via [facility] RAD FALL,RT ARM PAIN AND RT ARM SP [id number] 11/09/2012 07:30:00 013 09:49:00 SP DIS Emergency NIKIA BABCOCK MD Via [facility] ER FALL VOMITING/DIZZIN ESS SP [id number] 06/22/2012 10:25:00 SP Registration SP [id number] 07/29/2011 09:42:00 SP Registration SP [id number] 05/01/2011 12:13:00 SP Registration SP [id number] 04/25/2011 08:04:00 SP Registration SP
== END 2019-02-18 09:19 | disposition home or self-care (01) ==
LOC: SDC 08:19
PROVIDERS: ATTEND Specialist
DX: H26.492 Other secondary cataract, left eye (principal); E78.00 Pure hypercholesterolemia, unspecified; M19.90 Unspecified osteoarthritis, unspecified site; Z79.899 Other long term (current) drug therapy; Z79.82 Long term (current) use of aspirin; Z79.891 Long term (current) use of opiate analgesic; Z83.511 Family history of glaucoma; Z83.518 Family history of other specified eye disorder; Z80.0 Family history of malignant neoplasm of digestive organs; Z83.3 Family history of diabetes mellitus

== ENCOUNTER 2019-10-03 06:14 | Outpatient (RCR) | payer MEDICARE, OTHER ==
[~2019-10-03] VITALS: Ht 160 cm; Wt 54.5 kg
[~2019-10-03 06:14] MED LIST changes: -NIAC500T8 PO; +[UNRECOGNIZED DRUG - CODE] PO
[2019-10-03] MEDS ORDERED: CHOL20003 PO (10:20)
[2019-10-03] MEDS ORDERED: CLC600T PO (10:20)
== END 2020-01-01 ==
LOC: PREOP 06:14
PROVIDERS: ATTEND Specialist
DX: Z01.818 Encounter for other preprocedural examination (principal)

== ENCOUNTER 2019-10-07 06:26 | Day surgery (SDC) | payer MEDICARE, OTHER ==
[~2019-10-07] VITALS: Ht 160 cm; Wt 54.5 kg
[~2019-10-07 06:26] MED LIST changes: +CALC600T12 PO; +NIAC500T8 PO; -[UNRECOGNIZED DRUG - CODE] PO
[2019-10-07 06:35] VITALS: BP 130/89
[2019-10-07] MEDS: TETRACAINE 0.5% OPHTH SOLN 4 ML BTL (SINGLE DOSE ONLY) OP PRN ×2 (07:04→07:16)
[2019-10-07] MEDS: TROPICAMIDE 1% OPH SOLN (MYDRIACYL) 15 ML BTL OU PRN ×2 (07:04→07:16)
[2019-10-07] MEDS: PHENYLEPHRINE 10% OPHTH (NEO-SYN) 5 ML BTL OU PRN ×2 (07:04→07:16)
[2019-10-07 07:32] VITALS: BP 130/89
--- NOTE | 2019-10-07 07:53 | Ophthalmologist Pre-Op Note ---
Pre-Operative Progress Note H&P Reviewed The H&P was reviewed, patient examined and no changes noted. Date H&P Reviewed: Oct 07, 2019 Time H&P Reviewed: 07:33 Pre-Op Dx Secondary Cataract, Right Eye QING PALACIO MD Oct 07, 2019 07:53
--- NOTE | 2019-10-07 07:55 | Ophthalmology Operative Report ---
YAG Capsulotomy PREOPERATIVE DIAGNOSIS: Secondary Cataract Right Eye POSTOPERATIVE DIAGNOSIS: Secondary Cataract Right Eye PROCEDURE: YAG Capsulotomy, right eye SURGEON: Adryan Palacio ANESTHESIA: Topical anesthesia COMPLICATIONS: None ESTIMATED BLOOD LOSS: Minimal DESCRIPTION OF PROCEDURE: After proper informed consent was obtained, the patient's, a 83 female, right eye received one drop of Tropicamide and one drop of Tetracaine. The patient was then placed at the YAG laser and using a power of [4.0 ] millijoules and [ 17] bursts were used to fashion a central capsulotomy. The patient tolerated the procedure well without complications. ADRYAN PALACIO MD Oct 07, 2019 07:55
== END 2019-10-07 07:30 | disposition home or self-care (01) ==
LOC: SDC 06:26
PROVIDERS: ATTEND Specialist
DX: H26.491 Other secondary cataract, right eye (principal); M19.90 Unspecified osteoarthritis, unspecified site; E78.00 Pure hypercholesterolemia, unspecified; Z85.828 Personal history of other malignant neoplasm of skin; Z83.3 Family history of diabetes mellitus; Z88.1 Allergy status to other antibiotic agents; Z88.8 Allergy status to other drugs, medicaments and biological substances

== ENCOUNTER → 2020-02-21 | Outpatient (CLI) | payer MEDICARE, OTHER ==
[~2020-02-21] MED LIST changes: +AMLO-250 PO; -AMLO5TAB9 PO; -CALC600T12 PO; +CLC600T PO; +ENAL10TA16 PO; -NIAC500T8 PO; +[UNRECOGNIZED DRUG - CODE] PO
--- NOTE | 2020-02-21 11:35 | Diagnostic Imaging Report ---
ANKLE, RIGHT, 3 VIEWS COMPARISON: None available. INDICATION: Ankle pain TECHNIQUE: Non-weight bearing AP, oblique, and lateral views. FINDINGS: No fracture or traumatic malalignment. No osteochondral lesion of the talar dome. Chronic small ossific fragments at the tip of the medial malleolus are indicative of old injury. 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 IMPRESSION: 1. No acute fracture or traumatic malalignment. Dictated by: Dictated on workstation # [id number]
== END ==
LOC: RAD 10:31
PROVIDERS: ATTEND Physician Assistant
DX: M25.571 Pain in right ankle and joints of right foot (principal)
CPT/HCPCS: 73610

== ENCOUNTER 2020-08-03 17:56 | Observation (INO) | payer MEDICARE, OTHER ==
[~2020-08-03] VITALS: Ht 160 cm; Wt 51.3 kg
[~2020-08-03 17:56] MED LIST changes: +CALC600T91 PO; -CLC600T PO; -LISI40TA PO; +LISI40TA9 PO
--- NOTE | 2020-08-03 18:13 | ED Abdominal Pain ---
General Stated Complaint: ABD PAIN/HEADACHE Source of Information: Patient Exam Limitations: No Limitations History of Present Illness Date Seen by Provider: Aug 03, 2020 Time Seen by Provider: 18:11 Initial Comments To ER with reports of lower abdominal cramping that began at around noon. She has some troubles with constipation. She took a Dulcolax and then some prune juice this morning. She then had a bowel movement but the lower abdominal cramping persists. She rates the pain at 9 out of 10. No vomiting. No fevers or chills. Timing/Duration: 1-2 Days Severity/Quality: Moderate Location: Suprapubic Radiation: No Radiation Activities at Onset: None Associated Symptoms: Denies Symptoms Allergies and Home Medications Allergies Coded Allergies: metoprolol (Verified Allergy, Mild, 01/05/18) rash metformin (Verified Adverse Reaction, Severe, CONFUSION, 04/08/17) ciprofloxacin (Verified Adverse Reaction, Mild, 01/05/18) headache Home Medications Amlodipine Besylate 5 Mg Tablet, 5 MG PO BID, (Reported) Aspirin 325 Mg Tablet.dr, 162.5 MG PO DAILY, (Reported) TAKES 1/2 (325MG) TABLETS Atorvastatin Calcium 10 Mg Tablet, 10 MG PO HS, (Reported) Calcium Carbonate 600 Mg Tablet, 600 MG PO DAILY, (Reported) Cholecalciferol (Vitamin D3) 50 Mcg Capsule, 50 MCG PO DAILY, (Reported) Cyanocobalamin (Vitamin B-12) 1,000 Mcg Tablet, 1,000 MCG PO 1200, (Reported) Lisinopril 40 Mg Tablet, 20 MG PO BID, (Reported) TAKES 1/2 (40MG) TABLET Niacinamide 500 Mg Tablet, 500 MG PO DAILY, (Reported) [place]-3 Fatty Acids/Fish Oil 1 Each Capsule, 2,000 MG PO DAILY, (Reported) Timolol Maleate 5 Ml Drops, 1 DROP OU BID, (Reported) Patient Home Medication List Home Medication List Reviewed: Yes Review of Systems Review of Systems Constitutional: see HPI; No chills, No fever EENTM: No Symptoms Reported Respiratory: No Symptoms Reported Cardiovascular: No Symptoms Reported Gastrointestinal: See HPI, Abdominal Pain; Denies Diarrhea, Denies Nausea Genitourinary: No Symptoms Reported Musculoskeletal: no symptoms reported Skin: no symptoms reported Psychiatric/Neurological: No Symptoms Reported Endocrine: No Symptoms Reported Hematologic/Lymphatic: No Symptoms Reported Past Nuwmniw-Gxeoma-Xfheft Hx Patient Social History 2nd Hand Smoke Exposure: No Recent Hopitalizations: No Immunizations Up To Date Tetanus Booster (TDap): Unknown Date of Pneumonia Vaccine: Oct 18, 2017 Seasonal Allergies Seasonal Allergies: Yes Past Medical History Surgeries: Yes Respiratory: No Cardiac: Yes High Cholesterol, Hypertension Neurological: No Female Reproductive Disorders: Denies Sexually Transmitted Disease: No HIV/AIDS: No Genitourinary: No Gastrointestinal: No Musculoskeletal: Yes Osteoporosis Endocrine: Yes (DIET CONTROLLED) Diabetes, Non-Insulin dep HEENT: Yes Cataract, Macular Degeneration, Glaucoma Cancer: Yes Skin Did You Recieve Any Treatments: Yes What Type of Treatment Did You: Surgical Intervention Psychosocial: No Integumentary: No Blood Disorders: No Adverse Reaction/Blood Tranf: No Family Medical History Heart Disease, Hypertension Physical Exam Vital Signs Vital Signs - First Documented 08/03/20 18:02 Temp 36.9 Pulse 77 Resp 20 B/P (MAP) 184/83 (116) O2 Delivery Room Air Capillary Refill : Height/Weight/BMI Height: 5'2.00" Weight: 118lbs. 6.4oz. 53.255027ag; 21.7 BMI Method:Stated General Appearance: WD/WN, no apparent distress, thin, other (Alert, anxious appearing.) Respiratory: normal breath sounds, no respiratory distress, no accessory muscle use Gastrointestinal: normal bowel sounds, soft, tenderness (Midline suprapubic tenderness to palpation) Neurologic/Psychiatric: alert, normal mood/affect Skin: normal color, warm/dry Progress/Results/Core Measures Results/Orders Lab Results Laboratory Tests Test 08/03/20 18:06 08/03/20 18:15 Range/Units Urine Color YELLOW Urine Clarity CLEAR Urine pH 6.0 5-9 Urine Specific [place] 1.010 L 1.016-1.022 Urine Protein NEGATIVE NEGATIVE Urine Glucose (UA) NEGATIVE NEGATIVE Urine Ketones NEGATIVE NEGATIVE Urine Nitrite NEGATIVE NEGATIVE Urine Bilirubin NEGATIVE NEGATIVE Urine Urobilinogen 0.2 < = 1.0 MG/DL Urine Leukocyte Esterase 1+ H NEGATIVE Urine RBC (Auto) NEGATIVE NEGATIVE Urine RBC NONE /HPF Urine WBC RARE /HPF Urine Squamous Epithelial Cells NONE /HPF Urine Crystals NONE /LPF Urine Bacteria NEGATIVE /HPF Urine Casts NONE /LPF Urine Mucus NEGATIVE /LPF Urine Culture Indicated NO White Blood Count 5.0 4.3-11.0 10^3/uL Red Blood Count 4.35 3.80-5.11 10^6/uL Hemoglobin 13.3 11.5-16.0 g/dL Hematocrit 39 35-52 % Mean Corpuscular Volume 89 80-99 fL Mean Corpuscular Hemoglobin 31 25-34 pg Mean Corpuscular Hemoglobin Concent 35 32-36 g/dL Red Cell Distribution Width 12.3 10.0-14.5 % Platelet Count 210 130-400 10^3/uL Mean Platelet Volume 9.3 9.0-12.2 fL Immature Granulocyte % (Auto) 0 % Neutrophils (%) (Auto) 53 42-75 % Lymphocytes (%) (Auto) 31 12-44 % Monocytes (%) (Auto) 11 0-12 % Eosinophils (%) (Auto) 4 0-10 % Basophils (%) (Auto) 0 0-10 % Neutrophils # (Auto) 2.6 1.8-7.8 10^3/uL Lymphocytes # (Auto) 1.5 1.0-4.0 10^3/uL Monocytes # (Auto) 0.6 0.0-1.0 10^3/uL Eosinophils # (Auto) 0.2 0.0-0.3 10^3/uL Basophils # (Auto) 0.0 0.0-0.1 10^3/uL Immature Granulocyte # (Auto) 0.0 0.0-0.1 10^3/uL Sodium Level 125 *L 135-145 MMOL/L Potassium Level 4.8 3.6-5.0 MMOL/L Chloride Level 91 L 98-107 MMOL/L Carbon Dioxide Level 20 L 21-32 MMOL/L Anion Gap 13 5-14 MMOL/L Blood Urea Nitrogen 14 7-18 MG/DL Creatinine 1.16 0.60-1.30 MG/DL Estimat Glomerular Filtration Rate 44 BUN/Creatinine Ratio 12 Glucose Level 97 70-105 MG/DL Calcium Level 10.2 H 8.5-10.1 MG/DL Corrected Calcium 8.5-10.1 MG/DL Total Bilirubin 0.6 0.1-1.0 MG/DL Aspartate Amino Transf (AST/SGOT) 21 5-34 U/L Alanine Aminotransferase (ALT/SGPT) 20 0-55 U/L Alkaline Phosphatase 91 40-136 U/L Total Protein 8.0 6.4-8.2 GM/DL Albumin 4.8 H 3.2-4.5 GM/DL My Orders Orders - TO SIMPSON APRN Cbc With Automated Diff (08/03/20 18:09) Comprehensive Metabolic Panel (08/03/20 18:09) Ed Iv/Invasive Line Start (08/03/20 18:09) Ua Culture If Indicated (08/03/20 18:09) Fentanyl Inj (Sublimaze Injection) (08/03/20 18:15) Ct Abdomen/Pelvis Wo (08/03/20 18:47) Ns Iv 500 Ml (Sodium Chloride 0.9%) (08/03/20 19:00) Fentanyl Inj (Sublimaze Injection) (08/03/20 19:15) Medications Given in ED Current Medications Medications Dose Ordered Sig/Divine Route Start Time Stop Time Status Last Admin Dose Admin Fentanyl Citrate 25 mcg ONCE PRN IVP 08/03/20 18:15 08/03/20 18:28 25 MCG Fentanyl Citrate 50 mcg ONCE ONCE IVP 08/03/20 19:15 08/03/20 19:16 DC 08/03/20 19:18 50 MCG Vital Signs/I&O 08/03/20 18:02 Temp 36.9 Pulse 77 Resp 20 B/P (MAP) 184/83 (116) O2 Delivery Room Air Departure Communication (Admissions) spoke with Dr. Hernandez, we will admit the patient observation status, cefepime, Zofran fentanyl clear liquids and acute abdominal series in the morning. Spoke with Dr. Peterson, agrees with admission. Impression Primary Impression: Severe abdominal pain Disposition: ADMITTED INPATIENT Condition: Stable Admissions Decision to Admit Reason: Admit from ER (General) Decision to Admit/Date: Aug 03, 2020 Time/Decision to Admit Time: 19:41 Departure-Patient Inst. Referrals: SYDNEE CAMP MD (PCP/Family) Primary Care Physician TO SIMPSON APRN Aug 03, 2020 18:12
[2020-08-03] MEDS ORDERED: fentaNYL INJ 100 MCG/2 ML AMP IVP PRN (18:15)
[2020-08-03 18:19] LABS: BILIRUBIN,URINE NEGATIVE (NEGATIVE); CLARITY,URINE CLEAR; COLOR,URINE YELLOW; GLUCOSE, URINE (UA) NEGATIVE (NEGATIVE); KETONES,URINE NEGATIVE (NEGATIVE); LEUKOCYTE ESTERASE ,URINE 1+ (NEGATIVE); NITRITE,URINE NEGATIVE (NEGATIVE); PROTEIN,URINE NEGATIVE (NEGATIVE)
[2020-08-03 18:24] LABS: BASOPHILS % (AUTO) 0 % (0-10); EOSINOPHILS # (AUTO) 0.2 10^3/uL (0.0-0.3); EOSINOPHILS % (AUTO) 4 % (0-10); HEMATOCRIT 39 % (35-52); HEMOGLOBIN 13.3 g/dL (11.5-16.0); LYMPHOCYTES # (AUTO) 1.5 10^3/uL (1.0-4.0); LYMPHOCYTES % (AUTO) 31 % (12-44); MEAN CORPUSCULAR HEMOGLOBIN 31 pg (25-34); MEAN CORPUSCULAR HGB CONC 35 g/dL (32-36); MEAN CORPUSCULAR VOLUME 89 fL (80-99); MEAN PLATELET VOLUME 9.3 fL (9.0-12.2); MONOCYTES # (AUTO) 0.6 10^3/uL (0.0-1.0); MONOCYTES % (AUTO) 11 % (0-12); NEUTROPHILS # (AUTO) 2.6 10^3/uL (1.8-7.8); NEUTROPHILS % (AUTO) 53 % (42-75); PLATELET COUNT 210 10^3/uL (130-400)
[2020-08-03 18:30] LABS: BACTERIA,URINE NEGATIVE /HPF; WBC,URINE RARE /HPF
[2020-08-03 18:34] LABS: ALBUMIN 4.8 GM/DL (3.2-4.5)
[2020-08-03 18:35] LABS: CHLORIDE 91 MMOL/L (98-107); POTASSIUM 4.8 MMOL/L (3.6-5.0)
[2020-08-03 18:36] LABS: CALCIUM 10.2 MG/DL (8.5-10.1)
[2020-08-03 18:37] LABS: GLUCOSE 97 MG/DL (70-105)
[2020-08-03 18:38] LABS: CARBON DIOXIDE 20 MMOL/L (21-32)
[2020-08-03 18:39] LABS: BILIRUBIN,TOTAL 0.6 MG/DL (0.1-1.0)
[2020-08-03 18:40] LABS: ALKALINE PHOSPHATASE 91 U/L (40-136)
[2020-08-03 18:41] LABS: CREATININE SERUM 1.16 MG/DL (0.60-1.30); GFR ESTIMATED 44
[2020-08-03 18:42] LABS: BUN/CREATININE RATIO 12
[2020-08-03 18:43] LABS: ALANINE AMINOTRANSFERASE 20 U/L (0-55)
[2020-08-03 18:45] LABS: SODIUM 125 MMOL/L (135-145)
[2020-08-03] MEDS ORDERED: NS IV 500 ML 500 ML IV SCH (19:00)
[2020-08-03] MEDS ORDERED: fentaNYL INJ 100 MCG/2 ML AMP IVP ONE (19:15)
--- NOTE | 2020-08-03 19:29 | Diagnostic Imaging Report ---
PROCEDURE: CT abdomen and pelvis without contrast. TECHNIQUE: Multiple contiguous axial images were obtained through the abdomen and pelvis without the use of intravenous contrast. Auto Exposure Controls were utilized during the CT exam to meet ALARA standards for radiation dose reduction. INDICATION: Lower abdominal pain. COMPARISON: 01/04/2018. FINDINGS: The heart is unremarkable. Minimal hazy opacities are seen in the lung bases. Stable hypoattenuating focus is seen in the left hepatic dome measuring 2.0 cm, likely representing a benign cyst or hemangioma. The gallbladder is decompressed. No intrahepatic or extrahepatic biliary dilation is seen. The spleen, pancreas, adrenal glands, and kidneys have a normal noncontrast CT appearance. There is no pathologically enlarged mesenteric or retroperitoneal adenopathy. A moderate amount of stool is seen throughout the colon. A normal appendix is seen in the right lower quadrant. Mildly prominent loops of fluid-filled small bowel are seen in the right lower quadrant. There is no free fluid or free air. Chronic compression deformity is seen in the L1 vertebral body which demonstrates interval increase in height loss, now representing vertebra plana. No acute fracture is identified. Generalized osteopenia is noted. There is calcified aortic and iliac atherosclerotic plaque without evidence of aneurysm. There is no free air, loculated collection, or adenopathy in the pelvis. IMPRESSION: 1. Fluid-filled mildly distended loops of small bowel primarily in the right lower quadrant. Given the moderate amount of stool throughout the colon these findings are favored to represent enteritis; however, early small bowel obstruction is not completely excluded and follow-up is recommended. No free fluid or free air is seen. 2. Interval increase in height loss and chronic compression fracture at the L1 vertebral body. This is superimposed on generalized osteopenia. Dictated by: Dictated on workstation # [id number]
--- NOTE | 2020-08-03 20:25 | CONSULTATION REPORT ---
DATE OF SERVICE: ATTENDING PRIMARY CARE PHYSICIAN: Dr. Dyllan Sanchez. HISTORY OF PRESENT ILLNESS: The patient is an 84-year-old female who presented to the Emergency Department with lower crampy abdominal pain that started at around noon. She has had a longstanding history of constipation and does take Dulcolax as well as prune juice every morning. She states that she then had a bowel movement; however, the crampy pain persisted and also significant. A CT scan was performed, which did show some mildly dilated loops of small bowel; however, there was a considerable amount of stool within the colon. The radiologist's interpretation also mentioned the possibility of an enteritis. She does not report any recent antibiotic administration for another reason. She is also afebrile with a normal white count. PAST MEDICAL HISTORY: Hypercholesterolemia, hypertension, osteoporosis, macular degeneration, glaucoma, non-insulin dependent diabetes. PAST SURGICAL HISTORY: None known. ALLERGIES: METOPROLOL, METFORMIN, CIPROFLOXACIN. MEDICATIONS: Amlodipine 5 mg b.i.d., aspirin 325 mg daily, atorvastatin 10 mg daily, vitamin B12 1000 mg daily, lisinopril 40 mg b.i.d., niacin 500 mg daily, timolol eyedrops b.i.d. SOCIAL HISTORY: Negative smoke, negative alcohol. FAMILY HISTORY: Heart disease and hypertension. VITAL SIGNS: Temperature 36.9, blood pressure 184/83, pulse 77, respirations 20. REVIEW OF SYSTEMS: This is a slightly thin-appearing female with currently having some crampy abdominal pain. She does not report any nausea, no vomiting. She is passing small amounts of flatus; however, no bowel movement. No known red blood per rectum, no dark tarry stools. No fever, chills, no recent inadvertent weight loss. All other review of systems negative. PHYSICAL EXAMINATION: CHEST: A few scattered rales bilaterally. HEART: Regular, no murmurs. EXTREMITIES: No lower extremity edema, negative Homans sign. HEENT: No scleral icterus. NECK: No cervical lymphadenopathy. ABDOMEN: Soft, nondistended. There is pain elicited which is diffuse with voluntary guarding; however, no rebound and no hernias identified. SKIN: Warm, dry. LABORATORY DATA: WBC 5.0, hemoglobin 13.3, hematocrit 39, platelets 210. BUN 14, creatinine 1.16. Urine, 1+ leukocyte esterase. ASSESSMENT AND PLAN: An 84-year-old female with constipation, possible enteritis, ileus versus a mild partial small-bowel obstruction. We will treat her conservatively and start her on an antibiotic as well as bowel rest with a clear liquid diet and adequate pain control and frequent ambulation. We will also proceed with a Fleet's enema in hopes of promoting bowel movement and resolution of her symptoms. Job ID: [id number] DocumentID: [id number] Dictated Date: 08/03/2020 20:08:17 Java Tech Lead Date: 08/03/2020 20:25:01 Dictated By: NIKHIL GOMES MD
[2020-08-03] MEDS ORDERED: HYDROmorphone 2 MG/ML VIAL (DILAUDID) IV ONE (20:45)
[2020-08-03] MEDS ORDERED: TIMOLOL MALEATE 0.5% 5 ML (TIMOPTIC) BTL OU SCH (21:00)
[2020-08-03] MEDS ORDERED: LACTATED RINGERS 1,000 ML IV ONE (21:04)
[2020-08-03 21:05] VITALS: BP 135/61
[2020-08-03] MEDS: LACTATED RINGERS 1,000 ML IV SCH (21:19)
[2020-08-03] MEDS: CEFEPIME 1,000 MG/SWFI 10 ML IV PUSH IV SCH ×2 (21:50)
[2020-08-03 23:40] VITALS: BP 148/67
[2020-08-04] MEDS: fentaNYL INJ 100 MCG/2 ML AMP IV PRN ×2 (00:38→02:55)
[2020-08-04] MEDS: ONDANSETRON 4 MG/2 ML (SDV) Z0FRAN IV PRN ×2 (00:40→22:48)
[2020-08-04 03:00] LABS: BASOPHILS % (AUTO) 0 % (0-10); EOSINOPHILS % (AUTO) 0 % (0-10); HEMATOCRIT 34 % (35-52); HEMOGLOBIN 11.6 g/dL (11.5-16.0); LYMPHOCYTES # (AUTO) 0.8 10^3/uL (1.0-4.0); LYMPHOCYTES % (AUTO) 14 % (12-44); MEAN CORPUSCULAR HEMOGLOBIN 31 pg (25-34); MEAN CORPUSCULAR HGB CONC 34 g/dL (32-36); MEAN CORPUSCULAR VOLUME 89 fL (80-99); MEAN PLATELET VOLUME 10.2 fL (9.0-12.2); MONOCYTES # (AUTO) 0.2 10^3/uL (0.0-1.0); MONOCYTES % (AUTO) 4 % (0-12); NEUTROPHILS # (AUTO) 4.6 10^3/uL (1.8-7.8); NEUTROPHILS % (AUTO) 82 % (42-75); PLATELET COUNT 221 10^3/uL (130-400); WHITE BLOOD COUNT 5.6 10^3/uL (4.3-11.0)
[2020-08-04 03:22] LABS: CHLORIDE 94 MMOL/L (98-107); POTASSIUM 4.2 MMOL/L (3.6-5.0); SODIUM 126 MMOL/L (135-145)
[2020-08-04 03:23] LABS: CALCIUM 9.5 MG/DL (8.5-10.1); GLUCOSE 137 MG/DL (70-105)
[2020-08-04 03:25] LABS: CARBON DIOXIDE 19 MMOL/L (21-32)
[2020-08-04 03:27] LABS: CREATININE SERUM 0.87 MG/DL (0.60-1.30); GFR ESTIMATED > 60
[2020-08-04 03:28] LABS: BUN/CREATININE RATIO 13
[2020-08-04 04:48] VITALS: BP 132/62
[2020-08-04 07:10] VITALS: BP 151/65
[2020-08-04] MEDS: LACTATED RINGERS 1,000 ML IV SCH ×2 (07:37→16:53)
[2020-08-04] MEDS ORDERED: lisINopril 40 MG (PRINIVIL) TABLET PO SCH (09:00)
[2020-08-04] MEDS: CEFEPIME 1,000 MG/SWFI 10 ML IV PUSH IV SCH ×4 (09:53→20:39)
[2020-08-04] MEDS: amLODIPine 5 MG (NORVASC) TAB PO SCH ×2 (09:53→20:39)
[2020-08-04] MEDS: lisINopril 20 MG (PRINIVIL) TABLET PO SCH ×2 (09:53→20:39)
[2020-08-04] MEDS: ASPIRIN E.C. 325 MG (ECOTRIN) TABLET PO SCH (09:54)
--- NOTE | 2020-08-04 09:57 | Diagnostic Imaging Report ---
INDICATION: Abdominal pain TECHNIQUE: Single view chest with supine and upright radiographs of the abdomen. CORRELATION STUDY: Chest 07/22/2016 FINDINGS: Lung briones are slightly hyperinflated but overall clear. No infiltrate. Presence of a few gas-distended loops of a small bowel. There is gas and stool within the proximal colon. There does appear to be a small amount of gas and likely relatively decompressed distal colon including to level of the rectum. Definitive differentiation air-fluid levels not appreciated on this study. No free air. IMPRESSION: 1. Negative for acute cardiopulmonary abnormality. 2. Prominent gas-filled small bowel are present. There was some gas and stool in the colon, possibly of underlying early or partial small bowel obstruction not excluded. The overall severity distention is likely relatively stable from CT imaging of one day earlier. Dictated by: Dictated on workstation # [id number]
[2020-08-04 11:28] VITALS: BP 165/67
--- NOTE | 2020-08-04 11:49 | History & Physical-Hospitalist ---
History of Present Illness HPI/Chief Complaint Tricia Solares is an 84-year-old female with past medical history of hypertension, hyperlipidemia, glaucoma, osteoporosis, who presented with abdominal pain. She reports that she has had issues with constipation recently. She took some stool softeners and laxative yesterday and had a large bowel movement. She was having severe abdominal pain afterward. She is not having any nausea or vomiting at home but has been having nausea since being admitted to the hospital. She has not had any bowel movements since her arrival. She denies fevers and chills. She denies chest pain and shortness of breath. Source: patient Exam Limitations: no limitations Date Seen 08/04/20 Time Seen by a Provider: 11:15 Attending Physician Dejuan Sauceda MD PCP Dyllan Sanchez MD Referring Physician Date of Admission Aug 03, 2020 at 20:07 Home Medications & Allergies Home Medications Reviewed patient Home Medication Reconciliation performed by pharmacy medication reconciliations regulatory and compliance technician and/or nursing. Patients Allergies have been reviewed. Allergies Allergies Coded Allergies metoprolol (Verified Allergy, Mild, 01/05/18) rash metformin (Verified Adverse Reaction, Severe, CONFUSION, 04/08/17) ciprofloxacin (Verified Adverse Reaction, Mild, 01/05/18) headache Patient Social History Tobacco Use?: No Substance use?: No Alcohol Use?: No Pt stated abuse/neglect: No Immunizations Up To Date Influenza Vaccine Up-to-Date: No; Not Current First/Initial COVID19 Vaccinat: 07/13/20 Tetanus Booster (TDap): Unknown Hepatitis A: Yes Hepatitis B: Yes Date of Pneumonia Vaccine: Oct 18, 2017 Current Status Do you have an Advance Directi: No Communicates: Verbally Primary Language: Rwandan Preferred Spoken Language: Rwandan Is interpretation needed?: No Sensory deficits: Hearing impairment Implanted or Applied Medical D: None Past Medical History Hypertension Hyperlipidemia Glaucoma Osteoporosis Family Medical History Family Hx: Noncontributory Review of Systems Constitutional: no symptoms reported EENTM: no symptoms reported Respiratory: no symptoms reported Cardiovascular: no symptoms reported Gastrointestinal: abdominal pain, constipation, nausea Genitourinary: no symptoms reported Musculoskeletal: no symptoms reported Skin: no symptoms reported Psychiatric/Neurological: No Symptoms Reported Physical Exam Physical Exam Vital Signs Vital Signs - First Documented 08/03/20 08/03/20 18:02 20:47 Temp 36.9 Pulse 77 Resp 20 B/P (MAP) 184/83 (116) Pulse Ox 98 O2 Delivery Room Air Capillary Refill : Less Than 3 Seconds Height, Weight, BMI Height: 5'2.00" Weight: 118lbs. 6.4oz. [id number]; 20.03 BMI Method:Stated General Appearance: No Apparent Distress, Thin HEENT: PERRL/EOMI, Pharynx Normal Neck: Normal Inspection, Supple Respiratory: Lungs Clear, Normal Breath Sounds, No Respiratory Distress Cardiovascular: Regular Rate, Rhythm, No Edema, No Murmur Gastrointestinal: Normal Bowel Sounds, Non Tender, Soft Extremity: Normal Inspection, Non Tender, No Pedal Edema Neurologic/Psychiatric: Alert, Oriented x3, No Motor/Sensory Deficits, Normal Mood/Affect Skin: Normal Color, Warm/Dry Results Results/Procedures Labs Laboratory Tests 08/03/20 18:15 08/04/20 02:14 Patient resulted labs reviewed. Imaging: Reviewed Imaging Report Assessment/Plan Admission Diagnosis Abdominal pain Admission Status: Observation Assessment and Plan Abdominal pain Possible mild partial small bowel obstruction Possible enteritis Surgery consulted, appreciate assistance CT Abdomen showed possible enteritis, possible partial small bowel obstruction Small bowel follow through also showed possible partial small bowel obstruction Continue conservative medical management Pain regimen Bowel regimen Antiemetics Clear liquid diet HTN HLD Glaucoma Osteoporosis Continue home meds DVT prophylaxis: Lovenox Diagnosis/Problems Diagnosis/Problems (1) Intractable abdominal pain Status: Acute (2) Partial small bowel obstruction Status: Acute (3) HTN (hypertension) Status: Chronic (4) HLD (hyperlipidemia) Status: Chronic (5) Osteoporosis Status: Chronic (6) Glaucoma Status: Chronic DEJUAN SAUCEDA MD Aug 04, 2020 11:49
[2020-08-04] MEDS ORDERED: ENOXAPARIN 30 MG/0.3 ML (LOVENOX) SYR SC SCH (12:00)
--- NOTE | 2020-08-04 12:13 | Progress Note ---
Standard Progress Note Progress Notes/Assess & Plan Date Seen by a Provider: Aug 04, 2020 Time Seen by a Provider: 11:00 Progress/Assessment & Plan enteritis. doing well. less abd pain. mild nausea, no vomiting. last BM yesterday. cont abx. cont clears for now. ambulate. NIKHIL GOMES MD Aug 04, 2020 12:13
[2020-08-04] MEDS: TIMOLOL MALEATE 0.5% 5 ML (TIMOPTIC) BTL OU SCH ×2 (12:40→20:40)
[2020-08-04 15:55] VITALS: BP 159/64
[2020-08-04 20:38] VITALS: BP 166/67
[2020-08-04 23:40] VITALS: BP 152/72
[2020-08-05] MEDS: LACTATED RINGERS 1,000 ML IV SCH (03:07)
[2020-08-05 03:54] VITALS: BP 152/67
[2020-08-05 08:00] VITALS: BP 130/60
[2020-08-05] MEDS: amLODIPine 5 MG (NORVASC) TAB PO SCH (09:24)
[2020-08-05] MEDS: CEFEPIME 1,000 MG/SWFI 10 ML IV PUSH IV SCH ×2 (09:24)
[2020-08-05] MEDS: lisINopril 20 MG (PRINIVIL) TABLET PO SCH (09:24)
[2020-08-05] MEDS: ASPIRIN E.C. 325 MG (ECOTRIN) TABLET PO SCH (09:30)
[2020-08-05] MEDS: TIMOLOL MALEATE 0.5% 5 ML (TIMOPTIC) BTL OU SCH (09:30)
[2020-08-05 09:34] LABS: POTASSIUM 3.6 MMOL/L (3.6-5.0)
[2020-08-05 09:35] LABS: CALCIUM 8.9 MG/DL (8.5-10.1)
[2020-08-05 09:39] LABS: CREATININE SERUM 1.03 MG/DL (0.60-1.30)
--- NOTE | 2020-08-05 10:27 | Progress Note ---
Subjective Date Seen by a Provider: Aug 05, 2020 Time Seen by a Provider: 09:40 Subjective/Events-last exam Patient seen with Dr. Hernandez. Patient reports has been ambulating in the fall. Reports abdominal pain has resolved and has been passing gas. Tolerating clear liquids with no N/V. Objective Exam Vital Signs Date Time Temp Pulse Resp B/P (MAP) Pulse Ox O2 Delivery O2 Flow Rate FiO2 08/05/20 08:00 36.4 70 18 130/60 (83) 97 Room Air 08/05/20 03:54 36.6 65 20 152/67 (95) 93 Room Air 08/04/20 23:40 37.0 72 16 152/72 (98) 97 Room Air 08/04/20 20:39 94 Room Air 08/04/20 20:38 36.8 75 20 166/67 (100) 94 Room Air 08/04/20 15:55 36.8 65 16 159/64 (95) 98 Room Air 08/04/20 11:28 36.6 71 16 165/67 (99) 97 Room Air I & O 08/05/20 07:00 Intake Total 3990 ml Output Total 2 ml Balance 3988 ml Capillary Refill : Less Than 3 Seconds General Appearance: No Apparent Distress, WD/WN Neck: Normal Inspection, Supple Respiratory: No Accessory Muscle Use, No Respiratory Distress Cardiovascular: Regular Rate, Rhythm, No Edema Gastrointestinal: normal bowel sounds, non tender, soft Extremity: Normal Inspection, Normal Range of Motion Neurologic/Psychiatric: Alert, Oriented x3 Skin: Normal Color, Warm/Dry Results Lab Laboratory Tests 08/05/20 09:04: Sodium Level 129L, Potassium Level 3.6, Chloride Level 97L, Carbon Dioxide Level 21, Anion Gap 11, Blood Urea Nitrogen 8, Creatinine 1.03, Estimat Glomerular Filtration Rate 51, BUN/Creatinine Ratio 8, Glucose Level 141H, Calcium Level 8.9 Assessment/Plan Assessment/Plan Assess & Plan/Chief Complaint enteritis. doing well. abd pain resolved and passing flatus. Will advance to reg diet and if tolerates, then patient may go home from surgical standpoint. Continue to ambulate. YANIRA HUDDLESTON APRN Aug 05, 2020 10:27
[2020-08-05 12:00] VITALS: BP 150/68
--- NOTE | 2020-08-10 11:30 | Physician Query-Final Dx ---
Final Diagnosis Give Final Diagnosis Please give Final Diagnosis JOSHUA BOLES Aug 10, 2020 11:30
== END 2020-08-05 12:31 | disposition home or self-care (01) ==
LOC: EDUNIT# 17:56 → ER 17:57 → UNDOADMOB 20:07 → 4TH 20:07 → UNDODISOB 08-05 13:02
PROVIDERS: ADMIT Internal Medicine; ATTEND Internal Medicine
DX: K56.600 Partial intestinal obstruction, unspecified as to cause (principal); K59.00 Constipation, unspecified; I10 Essential (primary) hypertension; E78.00 Pure hypercholesterolemia, unspecified; E11.36 Type 2 diabetes mellitus with diabetic cataract; H26.9 Unspecified cataract; M81.0 Age-related osteoporosis without current pathological fracture; E78.5 Hyperlipidemia, unspecified; H40.9 Unspecified glaucoma; Z79.82 Long term (current) use of aspirin; Z79.899 Other long term (current) drug therapy; Z88.1 Allergy status to other antibiotic agents; Z88.8 Allergy status to other drugs, medicaments and biological substances
CPT/HCPCS: 74022; 74176; 80048 ×2; 80053; 81000; 85025 ×2; 94760; 96374; 96375; 96376; 99284; G0378; 36415

== ENCOUNTER 2022-01-26 18:46 | Emergency (ER) | payer MEDICARE, OTHER ==
[~2022-01-26] VITALS: Ht 157.5 cm; Wt 54.4 kg
[2022-01-26 18:52] VITALS: BP 166/74
--- NOTE | 2022-01-26 18:57 | ED GU-Female ---
General Chief Complaint: - Reproductive Stated Complaint: UTI SYMPTOMS History of Present Illness Date Seen by Provider: Jan 26, 2022 Time Seen by Provider: 18:56 Initial Comments Patient reports that she has urinary frequency and urgency that started today. History of similar symptoms in the past when she has had a UTI. Also states that she does not drink enough water but does not think that she is dehydrated. Denies fever, nausea, vomiting or flank pain. Timing/Duration: just prior to arrival Severity/Quality: moderate Radiation: none Activities at Onset: none Prior Genitourinary Problems: similar symptoms Modifying Factors: Improves With Urinating Associated Symptoms: No abdominal pain; dysuria; No fever/chills, No loss of bladder control, No lower back pain, No nausea/vomiting, No urinary frequency (MASHA ALEGRE APRN) Allergies and Home Medications Allergies Coded Allergies: metoprolol (Verified Allergy, Mild, 01/05/18) rash doxycycline (Verified Allergy, Unknown, 01/26/22) phenazopyridine (Verified Allergy, Unknown, 01/26/22) sitagliptin (Verified Allergy, Unknown, 01/26/22) metformin (Verified Adverse Reaction, Severe, CONFUSION, 04/08/17) ciprofloxacin (Verified Adverse Reaction, Mild, 01/05/18) headache Patient Home Medication List Home Medication List Reviewed: Yes (MASHA ALEGRE APRN) Amlodipine Besylate (Amlodipine Besylate) 5 Mg Tablet, 5 MG PO BID, (Reported) Entered as Reported by: VIKTOR DOLL on 04/08/17 1213 Aspirin (Aspirin EC) 325 Mg Tablet.dr, 162.5 MG PO DAILY, (Reported) Entered as Reported by: VIKTOR DOLL on 04/08/17 1217 Atorvastatin Calcium (Atorvastatin Calcium) 10 Mg Tablet, 10 MG PO HS, (Reported) Entered as Reported by: VIKTOR DOLL on 04/08/17 1217 Calcium Carbonate (Calcium) 600 Mg Tablet, 600 MG PO DAILY, (Reported) Entered as Reported by: ALBERTINA MAX on 10/03/19 1020 Cephalexin (Cephalexin) 500 Mg Capsule, 500 MG PO BID Prescribed by: Masha Alegre on 01/26/22 1932 Cholecalciferol (Vitamin D3) (Vitamin D3) 50 Mcg Capsule, 50 MCG PO DAILY, (Reported) Entered as Reported by: ALBERTINA MAX on 10/03/19 1020 Cyanocobalamin (Vitamin B-12) (Vitamin B-12) 1,000 Mcg Tablet, 1,000 MCG PO 1200, (Reported) Entered as Reported by: VIKTOR DOLL on 04/08/17 1217 Lisinopril (Lisinopril) 40 Mg Tablet, 20 MG PO BID, (Reported) Entered as Reported by: VIKTOR DOLL on 01/05/18 1006 Niacinamide (Niacinamide) 500 Mg Tablet, 500 MG PO DAILY, (Reported) Entered as Reported by: VIKTOR DOLL on 01/05/18 1006 [place]-3 Fatty Acids/Fish Oil (Fish Oil 1,000 mg Softgel) 1 Each Capsule, 2,000 MG PO DAILY, (Reported) Entered as Reported by: VIKTOR DOLL on 04/08/17 1217 Timolol Maleate (Timolol Maleate 0.5%) 5 Ml Drops, 1 DROP OU BID, (Reported) Entered as Reported by: VIKTOR DOLL on 04/08/17 1221 Review of Systems Review of Systems Constitutional: No chills, No diaphoresis, No dizziness, No fever, No weakness EENTM: no symptoms reported Respiratory: no symptoms reported Cardiovascular: no symptoms reported Gastrointestinal: no symptoms reported Genitourinary: burning; denies discharge; dysuria, frequency; denies flank pain; urgency Skin: no symptoms reported (MASHA ALEGRE APRN) All Other Systemes Reviewed Negative Unless Noted: Yes (MASHA ALEGRE APRN) Past Yedhltr-Bbshhw-Qulptb Hx Patient Social History Tobacco Use?: No Use of E-Cig and/or Vaping dev: No Substance use?: No Alcohol Use?: No (MASHA ALEGRE APRN) Immunizations Up To Date Tetanus Booster (TDap): Unknown PED Vaccines UTD: Yes First/Initial COVID19 Vaccinat: 07/13/20 Second COVID19 Vaccination [place]: 07/13/20 Third COVID19 Vaccination Date: 07/13/20 (MASHA ALEGRE APRN) Seasonal Allergies Seasonal Allergies: Yes (MASHA ALEGRE APRN) Past Medical History Surgeries: Yes Respiratory: No Cardiac: Yes High Cholesterol, Hypertension Neurological: No Female Reproductive Disorders: Denies Sexually Transmitted Disease: No HIV/AIDS: No Genitourinary: No Gastrointestinal: No Musculoskeletal: Yes Osteoporosis Endocrine: Yes (DIET CONTROLLED) Diabetes, Non-Insulin dep HEENT: Yes Cataract, Macular Degeneration, Glaucoma Cancer: Yes Skin Did You Recieve Any Treatments: Yes What Type of Treatment Did You: Surgical Intervention Psychosocial: No Integumentary: No Blood Disorders: No Adverse Reaction/Blood Tranf: No (MASHA ALEGRE APRN) Family Medical History Reviewed Nursing Family Hx (MASHA ALEGRE APRN) Heart Disease, Hypertension Noncontributory (MASHA ALEGRE APRN) Physical Exam Vital Signs Vital Signs - First Documented 01/26/22 18:52 Temp 36.5 Pulse 67 Resp 16 B/P (MAP) 166/74 (104) Pulse Ox 100 O2 Delivery Room Air (JOHN PAUL ARZATE MD) Vital Signs Capillary Refill : (MASHA ALEGRE APRN) Height, Weight, BMI Height: 5'2.00" Weight: 118lbs. 6.4oz. 53.538032vu; 20.03 BMI Method:Stated General Appearance: WD/WN, no apparent distress Cardiovascular: regular rate, rhythm, no edema Respiratory: chest non-tender, lungs clear, normal breath sounds, no respiratory distress, no accessory muscle use Gastrointestinal: normal bowel sounds, non tender, soft Back: No CVA tenderness (R), No CVA tenderness (L) Extremities: normal range of motion, non-tender, normal inspection Neurologic/Psychiatric: alert, normal mood/affect, oriented x 3 Skin: normal color, warm/dry (MASHA ALEGRE APRN) Progress/Results/Core Measures Suspected Sepsis SIRS Temperature: Pulse: Respiratory Rate: Blood Pressure / Mean: (MASHA ALEGRE APRN) Results/Orders Lab Results Laboratory Tests Test 01/26/22 18:58 Range/Units Urine Color YELLOW Urine Clarity CLEAR Urine pH 5.5 5-9 Urine Specific [place] <=1.005 1.016-1.022 Urine Protein NEGATIVE NEGATIVE Urine Glucose (UA) NEGATIVE NEGATIVE Urine Ketones NEGATIVE NEGATIVE Urine Nitrite NEGATIVE NEGATIVE Urine Bilirubin NEGATIVE NEGATIVE Urine Urobilinogen 0.2 < = 1.0 MG/DL Urine Leukocyte Esterase 2+ H NEGATIVE Urine RBC (Auto) NEGATIVE NEGATIVE Urine RBC NONE /HPF Urine WBC 25-50 H /HPF Urine Squamous Epithelial Cells 0-2 /HPF Urine Crystals NONE /LPF Urine Bacteria FEW H /HPF Urine Casts NONE /LPF Urine Mucus NEGATIVE /LPF Urine Culture Indicated YES (JOHN PAUL ARZATE MD) Vital Signs/I&O 01/26/22 18:52 Temp 36.5 Pulse 67 Resp 16 B/P (MAP) 166/74 (104) Pulse Ox 100 O2 Delivery Room Air (JOHN PAUL ARZATE MD) Vital Signs/I&O Capillary Refill : (MASHA ALEGRE APRN) Progress Note : Progress Note Patient presents to the emergency department UTI like symptoms. Will obtain UA and determine further plan of treatment from there. 1927: Spoke to patient and family in regards to lab and treatment. Reasons to return to the ER were discussed were patient and family. (MASHA ALEGRE APRN) Departure Impression Primary Impression: Urinary tract infection Qualified Codes: N30.01 - Acute cystitis with hematuria Disposition: HOME, SELF-CARE Condition: Stable Departure-Patient Inst. Decision time for Depature: 19:30 (MASHA ALEGRE APRN) Referrals: SYDNEE CAMP MD (PCP/Family) Primary Care Physician Patient Instructions: Urinary Tract Infection, Adult (DC) Add. Discharge Instructions: 1. Home and rest. 2. Push fluids. 3. Alternate Tylenol/Ibuprofen as needed for pain. 4. Cephalexin as directed. 5. Follow up with PCP as needed. 6. Return here if worse or concerns. All discharge instructions reviewed with patient and/or family. Voiced understanding. Scripts Cephalexin (Cephalexin) 500 Mg Capsule 500 MG PO BID for 7 Days, #14 CAP 0 Refills Prov: MASHA ALEGRE APRN 01/26/22 ATTENDING PHYSICIAN NOTE: I was physically present as attending physician in the emergency department during the care of this patient, but I was not directly involved in the decision making or delivery of care for this patient. (JOHN PAUL ARZATE MD) MASHA ALEGRE APRN Jan 26, 2022 18:56 JOHN PAUL ARZATE MD Jan 27, 2022 03:49
[2022-01-26 19:04] LABS: BILIRUBIN,URINE NEGATIVE (NEGATIVE); CLARITY,URINE CLEAR; COLOR,URINE YELLOW; GLUCOSE, URINE (UA) NEGATIVE (NEGATIVE); KETONES,URINE NEGATIVE (NEGATIVE); LEUKOCYTE ESTERASE ,URINE 2+ (NEGATIVE); NITRITE,URINE NEGATIVE (NEGATIVE); PH,URINE 5.5 (5-9); PROTEIN,URINE NEGATIVE (NEGATIVE)
[2022-01-26 19:16] LABS: BACTERIA,URINE FEW /HPF; SQUAMOUS EPITHELIAL CELL,UR 0-2 /HPF; WBC,URINE 25-50 /HPF
[2022-01-26] MEDS ORDERED: CEPHALEXIN 250 MG (KEFLEX) CAP PO SCH (19:30)
[2022-01-26] MEDS ORDERED: CEPH500C PO (19:32)
== END 2022-01-26 19:45 | disposition home or self-care (01) ==
LOC: EDUNIT# 18:46 → ER 18:47
DX: N39.0 Urinary tract infection, site not specified (principal); Z88.1 Allergy status to other antibiotic agents
CPT/HCPCS: 81000; 87077; 87088; 99283

== ENCOUNTER → 2022-03-10 | Outpatient (CLI) | payer MEDICARE, OTHER ==
[~2022-03-10] MED LIST changes: +CEPH500C PO
[2022-03-10 11:31] LABS: ABSOLUTE RETIC # 33 10e9/uL (24-90); BASOPHILS % (AUTO) 1 % (0-10); EOSINOPHILS # (AUTO) 0.2 10^3/uL (0.0-0.3); EOSINOPHILS % (AUTO) 5 % (0-10); HEMATOCRIT 34 % (35-52); HEMOGLOBIN 11.5 g/dL (11.5-16.0); LYMPHOCYTES # (AUTO) 1.2 10^3/uL (1.0-4.0); LYMPHOCYTES % (AUTO) 24 % (12-44); MEAN CORPUSCULAR HEMOGLOBIN 31 pg (25-34); MEAN CORPUSCULAR HGB CONC 34 g/dL (32-36); MEAN CORPUSCULAR VOLUME 89 fL (80-99); MEAN PLATELET VOLUME 9.2 fL (9.0-12.2); MONOCYTES # (AUTO) 0.5 10^3/uL (0.0-1.0); MONOCYTES % (AUTO) 10 % (0-12); NEUTROPHILS # (AUTO) 2.9 10^3/uL (1.8-7.8); NEUTROPHILS % (AUTO) 60 % (42-75); PLATELET COUNT 201 10^3/uL (130-400); RETICULOCYTE % 0.88 % (0.50-2.40); WHITE BLOOD COUNT 4.9 10^3/uL (4.3-11.0)
[2022-03-10 12:09] LABS: BAND NEUTROPHILS 1 %; BASOPHILS % (MANUAL) 1 %; BURR CELLS SLIGHT; EOSINOPHILS % (MANUAL) 5 %; LYMPHOCYTES % (MANUAL) 25 %; MONOCYTES % (MANUAL) 9 %; NEUTROPHILS % (MANUAL) 58 %; REACTIVE LYMPHOCYTES 1 %
== END ==
LOC: LAB 11:06
PROVIDERS: ATTEND Nurse Practitioner Family
DX: D64.9 Anemia, unspecified (principal); D70.9 Neutropenia, unspecified
CPT/HCPCS: 36415; 85007; 85027; 85045; 85055

== ENCOUNTER 2022-03-16 02:44 | Observation (INO) | payer MEDICARE, OTHER ==
[~2022-03-16] VITALS: Ht 162 cm; Wt 55.0 kg
[2022-03-16] MEDS ORDERED: LACTATED RINGERS 1,000 ML IV ONE (03:00)
[2022-03-16 03:06] LABS: BASOPHILS % (AUTO) 1 % (0-10); EOSINOPHILS # (AUTO) 0.3 10^3/uL (0.0-0.3); EOSINOPHILS % (AUTO) 6 % (0-10); HEMATOCRIT 33 % (35-52); HEMOGLOBIN 11.5 g/dL (11.5-16.0); LYMPHOCYTES % (AUTO) 24 % (12-44); MEAN CORPUSCULAR HEMOGLOBIN 30 pg (25-34); MEAN CORPUSCULAR HGB CONC 35 g/dL (32-36); MEAN CORPUSCULAR VOLUME 88 fL (80-99); MEAN PLATELET VOLUME 9.5 fL (9.0-12.2); MONOCYTES # (AUTO) 0.6 10^3/uL (0.0-1.0); MONOCYTES % (AUTO) 13 % (0-12); NEUTROPHILS # (AUTO) 2.4 10^3/uL (1.8-7.8); NEUTROPHILS % (AUTO) 56 % (42-75); PLATELET COUNT 209 10^3/uL (130-400); WHITE BLOOD COUNT 4.4 10^3/uL (4.3-11.0)
[2022-03-16 03:23] LABS: ALANINE AMINOTRANSFERASE 13 U/L (0-55); ALBUMIN 3.8 GM/DL (3.2-4.5); ALKALINE PHOSPHATASE 75 U/L (40-136); BILIRUBIN,TOTAL 0.4 MG/DL (0.1-1.0); BUN/CREATININE RATIO 14; CALCIUM 9.6 MG/DL (8.5-10.1); CARBON DIOXIDE 20 MMOL/L (21-32); CHLORIDE 98 MMOL/L (98-107); CREATININE SERUM 1.07 MG/DL (0.60-1.30); GFR ESTIMATED 50; GLUCOSE 141 MG/DL (70-105); MAGNESIUM 1.8 MG/DL (1.6-2.4); POTASSIUM 4.2 MMOL/L (3.6-5.0); SODIUM 129 MMOL/L (135-145); TOTAL PROTEIN 6.2 GM/DL (6.4-8.2)
[2022-03-16 03:37] LABS: INR 0.9 (0.8-1.4); PROTHROMBIN TIME PATIENT 12.5 SEC (12.2-14.7)
[2022-03-16 03:37] LABS: BILIRUBIN,URINE NEGATIVE (NEGATIVE); CLARITY,URINE CLEAR; COLOR,URINE YELLOW; GLUCOSE, URINE (UA) NEGATIVE (NEGATIVE); KETONES,URINE NEGATIVE (NEGATIVE); LEUKOCYTE ESTERASE ,URINE NEGATIVE (NEGATIVE); NITRITE,URINE NEGATIVE (NEGATIVE); PH,URINE 7.5 (5-9); PROTEIN,URINE NEGATIVE (NEGATIVE)
[2022-03-16 03:38] LABS: ERYTHROCYTE SEDIMENTATION RATE 13 MM/HR (0-30)
[2022-03-16 03:43] LABS: TSH (THYROID ANALYZER) 0.79 UIU/ML (0.35-4.94)
[2022-03-16 04:07] LABS: BACTERIA,URINE NEGATIVE /HPF
[2022-03-16 05:09] VITALS: BP_SYST 103; BP_SYST 114; BP_SYST 115; BP_DIAS 48; BP_DIAS 52; BP_DIAS 54
--- NOTE | 2022-03-16 06:13 | Diagnostic Imaging Report ---
PROCEDURE: CT head wo r/o stroke. TECHNIQUE: Multiple contiguous axial images were obtained through the brain without the use of intravenous contrast. Auto Exposure Controls were utilized during the CT exam to meet ALARA standards for radiation dose reduction. INDICATION: "Neuro deficit." The description of what that deficit is and any other potential localizing or useful history has not been shared. Compared with study 07/22/2016. There is no intracranial hemorrhage. There is no sulcal effacement. No findings of cerebral edema. No mass effect found. Peripherally calcified right parafalcine tiny meningioma showed no significant change from 2017. Patchy periventricular white matter hypodensities mildly increased, favored to reflect chronic small vessel disease. The basilar cisterns are patent. There were no findings of elevated intracranial pressures. There is intracranial atherosclerotic vascular calcifications. IMPRESSION: No hemorrhage or edema. Patchy periventricular white matter disease showed mild interval progression. Normal cerebral cortical volume for age. Chronic calcified meningioma incidentally noted. No acute appearing abnormality found. Dictated by: Dictated on workstation # [id number]
[2022-03-16] MEDS ORDERED: IOHEXOL 350 MG/ML 150 ML (OMNIPAQUE 350) VIAL IV ONE (06:15)
[2022-03-16] MEDS ORDERED: HOLD METFORMIN - RECEIVED CONTRAST 20 ML VIAL IV SCH (06:15)
[2022-03-16] MEDS ORDERED: NS 250 ML (IVPB) BAG IV ONE (06:15)
--- NOTE | 2022-03-16 06:36 | Diagnostic Imaging Report ---
INDICATION: Dizziness and weakness. Protocol CTA perfusion study performed. There were no findings at this study to suggest core infarct, penumbra or at risk ischemic parenchyma. IMPRESSION: Unremarkable CTA perfusion study Dictated by: Dictated on workstation # [id number]
--- NOTE | 2022-03-16 07:08 | ED General ---
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 0200. ALSO C/O BILATERAL FEET NUMBNESS, NAUSEA Source of Information: Patient History of Present Illness Date Seen by Provider: Mar 16, 2022 Time Seen by Provider: 02:45 Initial Comments PT ARRIVES VIA EMS FROM HOME WOKE UP 45 MINUTES PRIOR TO ARRIVAL, AROUND 0200, AND WAS VERY DIZZY AND HAD GENERALIZED WEAKNESS--WAS TOO WEAK TO STAND NO OTHER SYMPTOMS NO PAIN ANYWHERE NO HEADACHE NO VISION CHANGES NO SYNCOPE SLIGHT NAUSEA, NO VOMITING/DIARRHEA OR ABDOMINAL PAIN NO PARESTHESIAS OR MOTOR DEFICITS--STATES HER FEET AND LEGS JUST ARE WEAK, BUT NO NUMBNESS OR TINGLING. NO CHEST PAIN OR PALPITATIONS NO SHORTNESS OF BREATH NO FEVER OR RECENT ILLNESS NO URINARY SYMPTOMS--HAS CHRONIC INCONTINENCE, APPETITE HAS BEEN NORMAL PT IS DIABETIC--ACCUCHECK 160 BY EMS. PCP: DR. CAMP PHYSICIAN SUPPORT COORDINATOR: DR METZGER Allergies and Home Medications Allergies Coded Allergies: metoprolol (Verified Allergy, Mild, 01/05/18) rash doxycycline (Verified Allergy, Unknown, 01/26/22) phenazopyridine (Verified Allergy, Unknown, 01/26/22) sitagliptin (Verified Allergy, Unknown, 01/26/22) metformin (Verified Adverse Reaction, Severe, CONFUSION, 04/08/17) ciprofloxacin (Verified Adverse Reaction, Mild, 01/05/18) headache Patient Home Medication List Home Medication List Reviewed: Yes Amlodipine Besylate (Amlodipine Besylate) 5 Mg Tablet, 5 MG PO BID, (Reported) Entered as Reported by: VIKTOR DOLL on 04/08/17 1213 Aspirin (Aspirin EC) 325 Mg Tablet., 162.5 MG PO DAILY, (Reported) Entered as Reported by: VIKTOR DOLL on 04/08/17 1217 Atorvastatin Calcium (Atorvastatin Calcium) 10 Mg Tablet, 10 MG PO HS, (Reported) Entered as Reported by: VIKTOR DOLL on 04/08/17 1217 Calcium Carbonate (Calcium) 600 Mg Tablet, 600 MG PO DAILY, (Reported) Entered as Reported by: ALBERTINA MAX on 10/03/19 1020 Cephalexin (Cephalexin) 500 Mg Capsule, 500 MG PO BID Prescribed by: Masha Medrano on 01/26/22 193 Cholecalciferol (Vitamin D3) (Vitamin D3) 50 Mcg Capsule, 50 MCG PO DAILY, (Reported) Entered as Reported by: ALBERTINA MAX on 10/03/19 1020 Cyanocobalamin (Vitamin B-12) (Vitamin B-12) 1,000 Mcg Tablet, 1,000 MCG PO 1200, (Reported) Entered as Reported by: VIKTOR DOLL on 04/08/17 1217 Lisinopril (Lisinopril) 40 Mg Tablet, 20 MG PO BID, (Reported) Entered as Reported by: VIKTOR DOLL on 01/05/18 1006 Niacinamide (Niacinamide) 500 Mg Tablet, 500 MG PO DAILY, (Reported) Entered as Reported by: VIKTOR DOLL on 01/05/18 1006 [place]-3 Fatty Acids/Fish Oil (Fish Oil 1,000 mg Softgel) 1 Each Capsule, 2,000 MG PO DAILY, (Reported) Entered as Reported by: VIKTOR DOLL on 04/08/17 1217 Timolol Maleate (Timolol Maleate 0.5%) 5 Ml Drops, 1 DROP OU BID, (Reported) Entered as Reported by: VIKTOR DLOL on 04/08/17 1221 Review of Systems Review of Systems Constitutional: see HPI, dizziness, malaise, weakness EENTM: no symptoms reported Respiratory: no symptoms reported Cardiovascular: no symptoms reported Gastrointestinal: see HPI; No abdominal pain, No diarrhea; nausea; No vomiting Genitourinary: see HPI; No decreased output, No dysuria, No frequency; incontinence (CHRONIC / NORMAL) Musculoskeletal: no symptoms reported Skin: no symptoms reported Psychiatric/Neurological: See HPI; Denies Headache, Denies Numbness, Denies Paresthesia, Denies Seizure, Denies Tingling, Denies Tremors; Weakness (GENERALIZED) Hematologic/Lymphatic: No Symptoms Reported Immunological/Allergic: no symptoms reported Past Rafgjkb-Opivix-Oieqsx Hx Patient Social History Tobacco Use?: No Substance use?: No Alcohol Use?: No Pt feels they are or have been: No Immunizations Up To Date Tetanus Booster (TDap): Unknown PED Vaccines UTD: Yes First/Initial COVID19 Vaccinat: 07/13/20 Second COVID19 Vaccination Wilver: 07/13/20 Third COVID19 Vaccination Date: 07/13/20 Seasonal Allergies Seasonal Allergies: Yes Past Medical History Surgery/Hospitalization HX: HTN, HIGH CHOLESTEROL, NIDDM, MACULAR DEGENERATION, GLAUCOMA, SKIN CA Surgeries: Yes (SKIN CANCER REMOVED FROM NOSE) Respiratory: No Cardiac: Yes High Cholesterol, Hypertension Neurological: No 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 Sexually Transmitted Disease: No HIV/AIDS: No Genitourinary: No Gastrointestinal: No Musculoskeletal: Yes Osteoporosis Endocrine: Yes (DIET CONTROLLED) Diabetes, Non-Insulin dep HEENT: Yes Cataract, Macular Degeneration, Glaucoma Cancer: Yes Skin Did You Recieve Any Treatments: Yes What Type of Treatment Did You: Surgical Intervention SQUAMOUS CELL CANCER REMOVED FROM NOSE Psychosocial: No Integumentary: No Blood Disorders: No Adverse Reaction/Blood Tranf: No Family Medical History Heart Disease, Hypertension Noncontributory Physical Exam Vital Signs Vital Signs - First Documented 03/16/22 02:44 Temp 36.0 Pulse 66 Resp 18 B/P (MAP) 156/69 (98) Pulse Ox 99 O2 Delivery Room Air Capillary Refill : Less Than 3 Seconds Height, Weight, BMI Height: 5'2.00" Weight: 118lbs. 6.4oz. [id number]; 20.00 BMI Method:Stated General Appearance: No Apparent Distress, WD/WN HEENT: PERRL/EOMI, TMs Normal, Normal ENT Inspection, Pharynx Normal, Other (NO NYSTAGMUS) Neck: Full Range of Motion, Normal Inspection, Non Tender, Supple; No Carotid Bruit, No JVD Respiratory: Normal Breath Sounds, No Accessory Muscle Use, No Respiratory Distress Cardiovascular: Regular Rate, Rhythm, No Edema, No JVD, No Murmur, Normal Peripheral Pulses Gastrointestinal: Normal Bowel Sounds, No Organomegaly, No Pulsatile Mass, Non Tender, Soft Back: No CVA Tenderness Extremity: Normal Capillary Refill, Normal Inspection, Normal Range of Motion, Non Tender, No Pedal Edema Neurologic/Psychiatric: Alert, Oriented x3, No Motor/Sensory Deficits, Normal Mood/Affect, 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 Norm as Tested; No Abnormal Cerebellar Tests; Other (GENERALIZED WEAKNESS ON STANDING--NEEDS ASSIST TO TRANSFER ) Skin: Normal Color, Warm/Dry Progress/Results/Core Measures Suspected Sepsis SIRS Temperature: Pulse: 69 Respiratory Rate: 18 Laboratory Tests 03/16/22 02:48: White Blood Count 4.4 Blood Pressure 103 /48 Mean: 66 Laboratory Tests 03/16/22 02:48: Creatinine 1.07, INR Comment 0.9, Platelet Count 209, Total Bilirubin 0.4 Results/Orders Lab Results Laboratory Tests Test 03/16/22 02:48 03/16/22 03:30 03/16/22 03:38 Range/Units White Blood Count 4.4 4.3-11.0 10^3/uL Red Blood Count 3.79 L 3.80-5.11 10^6/uL Hemoglobin 11.5 11.5-16.0 g/dL Hematocrit 33 L 35-52 % Mean Corpuscular Volume 88 80-99 fL Mean Corpuscular Hemoglobin 30 25-34 pg Mean Corpuscular Hemoglobin Concent 35 32-36 g/dL Red Cell Distribution Width 12.5 10.0-14.5 % Platelet Count 209 130-400 10^3/uL Mean Platelet Volume 9.5 9.0-12.2 fL Immature Granulocyte % (Auto) 0 % Neutrophils (%) (Auto) 56 42-75 % Lymphocytes (%) (Auto) 24 12-44 % Monocytes (%) (Auto) 13 H 0-12 % Eosinophils (%) (Auto) 6 0-10 % Basophils (%) (Auto) 1 0-10 % Neutrophils # (Auto) 2.4 1.8-7.8 10^3/uL Lymphocytes # (Auto) 1.0 1.0-4.0 10^3/uL Monocytes # (Auto) 0.6 0.0-1.0 10^3/uL Eosinophils # (Auto) 0.3 0.0-0.3 10^3/uL Basophils # (Auto) 0.0 0.0-0.1 10^3/uL Immature Granulocyte # (Auto) 0.0 0.0-0.1 10^3/uL Erythrocyte Sedimentation Rate 13 0-30 MM/HR Prothrombin Time 12.5 12.2-14.7 SEC INR Comment 0.9 0.8-1.4 Activated Partial Thromboplast Time 27 24-35 SEC Sodium Level 129 L 135-145 MMOL/L Potassium Level 4.2 3.6-5.0 MMOL/L Chloride Level 98 98-107 MMOL/L Carbon Dioxide Level 20 L 21-32 MMOL/L Anion Gap 11 5-14 MMOL/L Blood Urea Nitrogen 15 7-18 MG/DL Creatinine 1.07 0.60-1.30 MG/DL Estimat Glomerular Filtration Rate 50 BUN/Creatinine Ratio 14 Glucose Level 141 H 70-105 MG/DL Calcium Level 9.6 8.5-10.1 MG/DL Corrected Calcium 9.8 8.5-10.1 MG/DL Magnesium Level 1.8 1.6-2.4 MG/DL Total Bilirubin 0.4 0.1-1.0 MG/DL Aspartate Amino Transf (AST/SGOT) 16 5-34 U/L Alanine Aminotransferase (ALT/SGPT) 13 0-55 U/L Alkaline Phosphatase 75 40-136 U/L Troponin I < 0.028 <0.028 NG/ML C-Reactive Protein High Sensitivity 0.14 0.00-0.50 MG/DL Total Protein 6.2 L 6.4-8.2 GM/DL Albumin 3.8 3.2-4.5 GM/DL TSH [place] Testing 0.79 0.35-4.94 UIU/ML Urine Color YELLOW Urine Clarity CLEAR Urine pH 7.5 5-9 Urine Specific Spray 1.010 L 1.016-1.022 Urine Protein NEGATIVE NEGATIVE Urine Glucose (UA) NEGATIVE NEGATIVE Urine Ketones NEGATIVE NEGATIVE Urine Nitrite NEGATIVE NEGATIVE Urine Bilirubin NEGATIVE NEGATIVE Urine Urobilinogen 0.2 < = 1.0 MG/DL Urine Leukocyte Esterase NEGATIVE NEGATIVE Urine RBC (Auto) NEGATIVE NEGATIVE Urine RBC NONE /HPF Urine WBC NONE /HPF Urine Crystals NONE /LPF Urine Bacteria NEGATIVE /HPF Urine Casts NONE /LPF Urine Mucus NEGATIVE /LPF Urine Culture Indicated NO Influenza Type A (RT-PCR) Not Detected Not Detecte Influenza Type B (RT-PCR) Not Detected Not Detecte SARS-CoV-2 RNA (RT-PCR) Not Detected Not Detecte My Orders Orders - AR SLADE DO Ed Iv/Invasive Line Start (03/16/22 02:57) Ekg Tracing (03/16/22 02:57) O2 (03/16/22 02:57) Monitor-Rhythm Ecg Trace Only (03/16/22 02:57) Straight Cath For Spec.-Adult (03/16/22 02:57) Ct Head Wo-R/O Stroke (03/16/22 02:57) Chest 1 View, Ap/Pa Only (03/16/22 02:57) Cbc With Automated Diff (03/16/22 02:57) Comprehensive Metabolic Panel (03/16/22 02:57) Hs C Reactive Protein (03/16/22 02:57) Magnesium (03/16/22 02:57) Protime With Inr (03/16/22 02:57) Partial Thromboplastin Time (03/16/22 02:57) Thyroid Analyzer (03/16/22 02:57) Ua Culture If Indicated (03/16/22 02:57) Erythrocyte Sedimentation Rate (03/16/22 02:57) Troponin I Skip (03/16/22 02:57) Ed Iv/Invasive Line Start (03/16/22 02:57) Lactated Ringers (Lr 1000 Ml Iv Solution (03/16/22 03:00) Covid 19 Inhouse Test (03/16/22 02:57) Influenza A And B By Pcr (03/16/22 02:57) Isolation Central Supply Req (03/16/22 02:57) Orthostatic Vital Signs (Adult (03/16/22 04:45) Ct Angio Head/Neck (03/16/22 04:58) Ct Head Perfusion W/ Contrast (03/16/22 04:58) Iohexol Injection (Omnipaque 350 Mg/Ml 1 (03/16/22 06:15) Received Contrast (Hold Metformin- Contr (03/16/22 06:15) Ns (Ivpb) (Sodium Chloride 0.9%) (03/16/22 06:15) Medications Given in ED Current Medications Medications Dose Ordered Sig/Divine Route Start Time Stop Time Status Last Admin Dose Admin Iohexol 150 ml ONCE ONCE IV 03/16/22 06:15 03/16/22 06:22 DC 03/16/22 06:13 120 ML Lactated Ringer's 1,000 ml @ 0 mls/hr Q0M ONCE IV 03/16/22 03:00 03/16/22 03:01 DC 03/16/22 03:09 0 MLS/HR Sodium Chloride 250 ml ONCE ONCE IV 03/16/22 06:15 03/16/22 06:22 DC 03/16/22 06:13 120 ML Vital Signs/I&O 03/16/22 03/16/22 02:44 05:09 Temp 36.0 Pulse 66 70 72 69 Resp 18 B/P (MAP) 156/69 (98) 114/54 (74) 115/52 (73) 103/48 (66) Pulse Ox 99 O2 Delivery Room Air Capillary Refill : Less Than 3 Seconds Blood Pressure Mean: 66 Progress Note : Progress Note GIVEN IV FLUIDS STATES SHE FEELS LESS DIZZY, BUT IS STILL WEAK. VITALS STABLE UNEVENTFUL ER STAY MARKED DELAY IN OBTAINING CTA HEAD/NECK REPORT. CALLED [facility] AT 0720. ECG Initial ECG Impression Date: Mar 16, 2022 Initial ECG Impression Time: 02:57 Initial ECG Rate: 64 Initial ECG Rhythm: Normal Sinus Diagnostic Imaging Comments CXR--NO ACUTE PROCESS, CHRONIC LUNG CHANGES--PENDING RADIOLOGIST REVIEW CT HEAD--NO ACUTE PROCESS, CHRONIC CHANGES--PER [facility] VIA PHONE AT 0455 AND VIA FAX AT [address] HEAD PERFUSION STUDY--PER RADIOLOGIST REPORT AT 0700 CT HEAD PERFUSION W/ CONTRAST INDICATION: Dizziness and weakness. Protocol CTA perfusion study performed. There were no findings at this study to suggest core infarct, penumbra or at risk ischemic parenchyma. IMPRESSION: Unremarkable CTA perfusion study CT ANGIOGRAM HEAD/NECK--VERBAL REPORT FROM [facility] AT 0731 -NO ACUTE PROCESS, NO HEMODYNAMICALLY SIGNIFICANT STENOSIS. NO LARGE VESSEL OCCLUSION Reviewed: Reviewed by Ky Departure Communication (Admissions) 0539--SPOKE WITH DR. SAUCEDA, HOSPITALIST, ACCEPTS PT FOR ADMIT. Impression Primary Impression: Generalized weakness Additional Impressions: Dizziness Chronic hyponatremia Disposition: ADMITTED INPATIENT Condition: Stable Admissions Decision to Admit Reason: Admit from ER (General) Decision to Admit/Date: Mar 16, 2022 Time/Decision to Admit Time: 05:40 Departure-Patient Inst. Referrals: SYDNEE CAMP MD (PCP/Family) Primary Care Physician AR SLADE DO Mar 16, 2022 07:08
--- NOTE | 2022-03-16 07:27 | Diagnostic Imaging Report ---
EXAMINATION: Chest 1 view HISTORY: Weakness COMPARISON: None available. FINDINGS: The lungs are hyperinflated and without edema or pneumonia. There are scattered areas of scarring. No pleural effusion or pneumothorax. Heart size is normal. IMPRESSION: 1. Hyperinflated lungs with scattered areas of scarring. Dictated by: Dictated on workstation # [id number]
--- NOTE | 2022-03-16 07:31 | Diagnostic Imaging Report ---
PROCEDURE: CT angiography of the head and CT angiography of the neck with and without contrast. TECHNIQUE: Contiguous noncontrast images were obtained from the skull base through the vertex. After intravenous contrast administration, helical CT angiography of the neck was performed. Source data was reformatted into 3D MIP projections. Delayed post contrast acquisition was also obtained. Auto Exposure Controls were utilized during the CT exam to meet ALARA standards for radiation dose reduction. INDICATION: Dizziness and weakness. NECK: There is conventional branching of the great vessels. Cervical vertebral arteries patent and codominant. Atherosclerotic plaque at the carotid bulbs and bifurcations result in about 50% right and less than 50% left proximal ICA stenoses. No hemodynamically significant degree of cervical arterial narrowing. No dissection. HEAD: Normal enhancement of the major dural venous sinuses is confirmed. 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 The intracranial ICAs patent. A1 segments, ACOM, anterior cerebral arteries unremarkable. Bilateral middle cerebral arterial segments and primary branches are patent and opacified. No filling defect. No thrombus. No large vessel occlusion. No aneurysm or vascular malformation. A tiny subcentimeter right parafalcine meningioma is noted as a chronic finding. IMPRESSION: No acute arterial pathology found at CT angio neck and head, no hemodynamically significant stenosis. Dictated by: Dictated on workstation # [id number]
[2022-03-16] MEDS ORDERED: ASCO100024 PO (10:51)
[2022-03-16] MEDS ORDERED: ZINC50TA51 PO (10:51)
[2022-03-16] MEDS ORDERED: LORA10CA PO (10:51)
[2022-03-16] MEDS: NS IV 1000 ML 1,000 ML IV SCH ×2 (11:46→21:26)
[2022-03-16 11:50] VITALS: BP 148/79
[2022-03-16 11:56] VITALS: BP_SYST 135; BP_SYST 139; BP_SYST 148; BP_DIAS 65; BP_DIAS 67
[2022-03-16] MEDS ORDERED: ENOXAPARIN INJECTION 30 MG/0.3 ML SYR SC SCH (12:00)
[2022-03-16] MEDS ORDERED: ACETAMINOPHEN 325 MG TABLET PO PRN (12:00)
[2022-03-16] MEDS ORDERED: ONDANSETRON 4 MG/2 ML (SDV) Z0FRAN IV PRN (12:00)
[2022-03-16] MEDS ORDERED: ONDANSETRON 4 MG (ZOFRAN) ORAL DISSOLVE TAB PO PRN (12:00)
[2022-03-16] MEDS ORDERED: polyethylene glycoL POWDER 17 GM (MIRALAX) PACK PO PRN (12:00)
[2022-03-16] MEDS ORDERED: LACTULOSE SYRUP 10GM/15ML (ENULOSE) 30ML UDC PO PRN (12:00)
[2022-03-16] MEDS ORDERED: MILK OF MAGNESIA 400 MG/5 ML 30 ML UDC PO PRN (12:00)
[2022-03-16] MEDS ORDERED: CALCIUM CARBONATE 500 MG (TUMS) TAB.CHEW PO PRN (12:00)
[2022-03-16] MEDS ORDERED: ANTACID SUSP 30 ML UDC (MYLANTA) PO PRN (12:00)
[2022-03-16] MEDS ORDERED: MELATONIN 3 MG TABLET PO PRN (12:00)
[2022-03-16] MEDS ORDERED: BISACODYL 10 MG SUPP (DULCOLAX) PR PRN (12:00)
[2022-03-16] MEDS ORDERED: lisINopril 20 MG (PRINIVIL) TABLET PO SCH (12:10)
[2022-03-16 12:27] LABS: CHOLESTEROL 149 MG/DL (< 200); HDL CHOLESTEROL 86 MG/DL (40-60); TRIGLYCERIDES 29 MG/DL (<150); VLDL CHOLESTEROL 6 MG/DL (5-40)
[2022-03-16] MEDS: amLODIPine 10 MG (NORVASC) TAB PO SCH (13:32)
[2022-03-16] MEDS ORDERED: inSUlin ASPART (NovoLOG) 1 UNIT/0.01 ML (CHARGE PER UNIT) SC SCH (16:00)
[2022-03-16 16:14] VITALS: BP 138/63
--- NOTE | 2022-03-16 17:29 | History & Physical-Hospitalist ---
History of Present Illness HPI/Chief Complaint Tricia Christie is an 86 year old female with PMH HTN, HLD, diet controlled T2DM, chronic hyponatremia, who presented with dizziness. She woke up around 2am and felt dizzy. She felt like the room was spinning. She had to crawl to her to wake him up. Her symptoms persisted for several hours. She is currently asymptomatic though. She reports having this feeling before when she wakes up and stands up from bed. She has discussed changing positions slowly with Dr. Bishop, but she says she forgets and just gets up and goes. She did not pass out. She denies chest pain and palpitations. She denies shortness of breath. She denies vision changes. She denies speech difficulty. She denies weakness. She reports a few episodes where she had speech finding difficulty for several minutes which spontaneously resolved. She also reports having unilateral blurry vision which also spontaneously resolved. She was reportedly told that they might have been "mini-strokes". Source: patient, family Exam Limitations: no limitations Date Seen 03/16/22 Time Seen by a Provider: 12:15 Attending Physician Dyllan Sanchez MD PCP Admitting Physician: Dejuan Sauceda MD Attending Physician: Dejuan Sauceda MD Referring Physician Date of Admission Mar 16, 2022 at 05:40 Home Medications & Allergies Home Medications Reviewed patient Home Medication Reconciliation performed by pharmacy medication reconciliations cctv technician and/or nursing. Patients Allergies have been reviewed. Allergies Allergies Coded Allergies metoprolol (Verified Allergy, Mild, 01/05/18) rash doxycycline (Verified Allergy, Unknown, 01/26/22) phenazopyridine (Verified Allergy, Unknown, 01/26/22) sitagliptin (Verified Allergy, Unknown, 01/26/22) metformin (Verified Adverse Reaction, Severe, CONFUSION, 04/08/17) ciprofloxacin (Verified Adverse Reaction, Mild, 01/05/18) headache Past Vevqndk-Rorift-Rwtcwz Hx Patient Social History Tobacco Use?: No Smoking Status: Never a Smoker Use of E-Cig and/or Vaping dev: No Use of E-Cig and/or Vaping Alvaro: Never a User Substance use?: No Alcohol Use?: No Pt feels they are or have been: No Immunizations Up To Date First/Initial COVID19 Vaccinat: 07/13/20 Second COVID19 Vaccination Wilver: 07/13/20 Tetanus Booster (TDap): Unknown Hepatitis A: Yes Hepatitis B: Yes PED Vaccines UTD: Yes Date of Pneumonia Vaccine: Oct 18, 2017 Seasonal Allergies Seasonal Allergies: Yes Current Status Advance Directives: No Communicates: Verbally Primary Language: Luxembourger Preferred Spoken Language: Luxembourger Is interpretation needed?: No Sensory deficits: Vision impairment, Hearing impairment Implanted or Applied Medical D: None Past Medical History High Cholesterol, Hypertension 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 Sexually Transmitted Disease: No HIV/AIDS: No Osteoporosis Diabetes, Non-Insulin dep Cataract, Macular Degeneration, Glaucoma Skin Did You Recieve Any Treatments: Yes What Type of Treatment Did You: Surgical Intervention SQUAMOUS CELL CANCER REMOVED FROM NOSE Blood Disorders: No Adverse Reaction/Blood Tranf: No Hypertension Hyperlipidemia Glaucoma Osteoporosis Family Medical History Heart Disease, Hypertension Noncontributory Review of Systems Constitutional: dizziness EENTM: no symptoms reported Respiratory: no symptoms reported Cardiovascular: no symptoms reported Gastrointestinal: no symptoms reported Physical Exam Physical Exam Vital Signs Vital Signs - First Documented 03/16/22 02:44 Temp 36.0 Pulse 66 Resp 18 B/P (MAP) 156/69 (98) Pulse Ox 99 O2 Delivery Room Air Capillary Refill : Less Than 3 Seconds Height, Weight, BMI Height: 5'2.00" Weight: 118lbs. 6.4oz. 53.365464iq; 20.95 BMI Method:Stated General Appearance: No Apparent Distress, Thin HEENT: PERRL/EOMI, Pharynx Normal Neck: Normal Inspection, Supple Respiratory: Lungs Clear, No Respiratory Distress Cardiovascular: Regular Rate, Rhythm, No Edema, No Murmur Gastrointestinal: Normal Bowel Sounds, Non Tender, Soft Extremity: Normal Inspection, No Pedal Edema Neurologic/Psychiatric: Alert, Oriented x3, No Motor/Sensory Deficits, Normal Mood/Affect; No Facial Droop, No Motor Weakness Skin: Normal Color, Warm/Dry Results Results/Procedures Labs Laboratory Tests 03/16/22 02:48 Patient resulted labs reviewed. Imaging: Reviewed Imaging Report Assessment/Plan Admission Diagnosis Dizziness Admission Status: Observation Assessment and Plan Dizziness Orthostasis vs TIA Orthostatic vitals negative after fluid resuscitation CT negative for acute pathology Declined MRI due to claustrophobia Symptoms resolved ASA and Lipitor IV fluids PT/OT HTN Continue Amlodipine Hold Lisinopril HLD Continue Lipitor T2DM Diet controlled Chronic hyponatremia Appears to be at baseline Monitor DVT prophylaxis: Lovenox Diagnosis/Problems Diagnosis/Problems (1) Dizziness Status: Acute (2) HTN (hypertension) Status: Chronic (3) HLD (hyperlipidemia) Status: Chronic (4) Non-insulin dependent type 2 diabetes mellitus Status: Chronic (5) Chronic hyponatremia Status: Chronic DEJUAN SAUCEDA MD Mar 16, 2022 17:29
[2022-03-16 20:18] VITALS: BP 133/63
[2022-03-16] MEDS ORDERED: amLODIPine 5 MG (NORVASC) TAB PO SCH (21:00)
[2022-03-16] MEDS ORDERED: lisINopril 40 MG (PRINIVIL) TABLET PO SCH (21:00)
[2022-03-16] MEDS ORDERED: AtorvaSTATin TABLET 10 MG TABLET PO SCH (21:00)
[2022-03-16] MEDS: DOCUSATE SODIUM 100 MG (COLACE) CAP PO SCH (21:26)
[2022-03-16] MEDS: SENNOSIDES 8.6 MG (SENOKOT) TAB PO SCH (21:26)
[2022-03-16] MEDS: TIMOLOL MALEATE 0.5% 5 ML (TIMOPTIC) BTL OU SCH (21:27)
[2022-03-17 01:00] VITALS: BP 123/57
[2022-03-17 05:18] VITALS: BP 112/59
[2022-03-17 07:13] LABS: CALCIUM 9.2 MG/DL (8.5-10.1); CREATININE SERUM 0.85 MG/DL (0.60-1.30); POTASSIUM 4.2 MMOL/L (3.6-5.0)
[2022-03-17] MEDS: amLODIPine 10 MG (NORVASC) TAB PO SCH (08:46)
[2022-03-17] MEDS: DOCUSATE SODIUM 100 MG (COLACE) CAP PO SCH (08:46)
[2022-03-17] MEDS: SENNOSIDES 8.6 MG (SENOKOT) TAB PO SCH (08:46)
[2022-03-17] MEDS: TIMOLOL MALEATE 0.5% 5 ML (TIMOPTIC) BTL OU SCH (08:47)
[2022-03-17] MEDS: NS IV 1000 ML 1,000 ML IV SCH (08:52)
[2022-03-17] MEDS ORDERED: ASPIRIN E.C. 81 MG (ECOTRIN) TAB PO SCH (09:00)
[2022-03-17 09:20] VITALS: BP 120/68
--- NOTE | 2022-03-17 10:31 | Physical Therapy Progress Note ---
Therapy Progress Note Patient is up independently in room with family present. Patient observed ambulating in room without AD and toileting independently. No skilled PT indicated. JAYLIN KEE PT Mar 17, 2022 10:31
--- NOTE | 2022-03-17 10:53 | Discharge Inst-Simple/Standard ---
Discharge Inst-Standard Patient Instructions/Follow Up Plan of Care/Instructions/FU: Please continue to take your medications as written. Please follow up with your primary care doctor to follow up this hospital stay. Activity as Tolerated: Yes Discharge Diet: No Restrictions Return to The Hospital For: Chest pain, shortness of breath, fever, weakness, if you feel you are getting worse. MURIEL VELÁZQUEZ MD Mar 17, 2022 10:53 am
--- NOTE | 2022-03-17 10:55 | Discharge Summary ---
Diagnosis/Chief Complaint Date of Admission Mar 16, 2022 at 5:40 am Date of Discharge Discharge Date: Mar 17, 2022 Admission Diagnosis Dizziness Primary Care Dyllan Sanchez MD Discharge Diagnosis (1) Dizziness Status: Acute (2) HTN (hypertension) Status: Chronic (3) HLD (hyperlipidemia) Status: Chronic (4) Non-insulin dependent type 2 diabetes mellitus Status: Chronic (5) Chronic hyponatremia Status: Chronic Discharge Summary Discharge Physical Exam Allergies: Coded Allergies: metoprolol (Verified Allergy, Mild, 01/05/18) rash doxycycline (Verified Allergy, Unknown, 01/26/22) phenazopyridine (Verified Allergy, Unknown, 01/26/22) sitagliptin (Verified Allergy, Unknown, 01/26/22) metformin (Verified Adverse Reaction, Severe, CONFUSION, 04/08/17) ciprofloxacin (Verified Adverse Reaction, Mild, 01/05/18) headache Vitals & I&Os Vital Signs Date Time Temp Pulse Resp B/P (MAP) Pulse Ox O2 Delivery O2 Flow Rate FiO2 03/17/22 11:50 36.4 61 18 125/66 (85) 98 Room Air General Appearance: No Apparent Distress, WD/WN Cardiovascular: Regular Rate, Rhythm, No Murmur Gastrointestinal: Normal Bowel Sounds, Soft Neurologic/Psychiatric: Alert, Oriented x3 Hospital Course Patient was admitted to the hospital secondary to dizziness with concern for TI A. Her symptoms resolved completely and MRI was offered but she declined as she is claustrophobic. There was some concern for orthostasis as well and she has had difficulty with this in the past but orthostatic vital signs were normal here. She returned to her baseline and was seen by physical therapy but was independent with ambulation. She was discharged home in stable and improved condition to follow-up with her primary care physician, Dr. Sanchez. Labs (last 24 hrs) Laboratory Tests 03/16/22 16:27: Glucometer 93 03/16/22 20:17: Glucometer 144H 03/17/22 06:13: Glucometer 89 03/17/22 06:19: Sodium Level 135, Potassium Level 4.2, Chloride Level 104, Carbon Dioxide Level 23, Anion Gap 8, Blood Urea Nitrogen 7, Creatinine 0.85, Estimat Glomerular Filtration Rate 66, BUN/Creatinine Ratio 8, Glucose Level 94, Calcium Level 9.2 03/17/22 11:24: Glucometer 107 Patient resulted labs reviewed. Pending Labs Laboratory Tests 03/17/22 06:13: Glucometer 89 03/17/22 06:19: Sodium Level 135, Potassium Level 4.2, Chloride Level 104, Carbon Dioxide Level 23, Anion Gap 8, Blood Urea Nitrogen 7, Creatinine 0.85, Estimat Glomerular Filtration Rate 66, BUN/Creatinine Ratio 8, Glucose Level 94, Calcium Level 9.2 03/17/22 11:24: Glucometer 107 Imaging: Reviewed Imaging Report Discussion & Recommendations Discharge Planning: >30 minutes discharge planning Discharge Home Medications: Active Scripts Active Reported Vitamin C (Ascorbic Acid) 1,000 Mg Tablet 1,000 Mg PO Zinc (Zinc Amino Acid Chelate) 50 Mg Tablet 50 Mg PO Claritin (Loratadine) 10 Mg Capsule 10 Mg PO DAILY Calcium (Calcium Carbonate) 600 Mg Tablet 600 Mg PO DAILY Vitamin D3 (Cholecalciferol (Vitamin D3)) 50 Mcg Capsule 50 Mcg PO DAILY Lisinopril 40 Mg Tablet 20 Mg PO BID TAKES 1/2 (40MG) TABLET Niacinamide 500 Mg Tablet 500 Mg PO DAILY Timolol Maleate 0.5% (Timolol Maleate) 5 Ml Drops 1 Drop OU BID Vitamin B-12 (Cyanocobalamin (Vitamin B-12)) 1,000 Mcg Tablet 1,000 Mcg PO 1200 Atorvastatin Calcium 10 Mg Tablet 10 Mg PO HS Fish Oil 1,000 mg Softgel ([place]-3 Fatty Acids/Fish Oil) 1 Each Capsule 2,000 Mg PO DAILY Aspirin EC (Aspirin) 325 Mg Tablet.dr 162.5 Mg PO DAILY TAKES 1/2 (325MG) TABLETS Amlodipine Besylate 5 Mg Tablet 5 Mg PO BID Instructions to patient/family Please see electronic discharge instructions given to patient. MURIEL VELÁZQUEZ MD Mar 17, 2022 10:55
--- NOTE | 2022-03-17 11:22 | Occ Therapy Progress Note ---
Therapy Progress Note OT orders received. RN, patient, and family report that pt is back to baseline for adls and mobility. RN reports pt is up ad martin in room. Pt declines any OT services at this time. 1 visit Selene Quijano OT Mar 17, 2022 11:22
[2022-03-17 11:50] VITALS: BP 125/66
[2022-03-17] MEDS ORDERED: ENOXAPARIN 40 MG/0.4 ML (LOVENOX) SYR SC SCH (12:00)
== END 2022-03-17 10:54 | disposition home or self-care (01) ==
LOC: EDUNIT# 02:44 → ER 02:45 → UNDOADMOB 05:40 → 4TH 05:40 → UNDODISOB 03-17 10:54
PROVIDERS: ADMIT Internal Medicine; ATTEND Internal Medicine
DX: R42 Dizziness and giddiness (principal); I10 Essential (primary) hypertension; E78.5 Hyperlipidemia, unspecified; E11.9 Type 2 diabetes mellitus without complications; E87.1 Hypo-osmolality and hyponatremia; F40.240 Claustrophobia
CPT/HCPCS: 0042T; 51701; 70450; 70496; 70498; 71045; 80048; 80053; 80061; 81000; 82947 ×2; 83735; 84443; 84484; 85025; 85610; 85652; 85730; 86141; 87636; 93005; 93041; 99284; 36415; 96372; G0378

== ENCOUNTER → 2022-11-24 | Outpatient (CLI) | payer MEDICARE, OTHER ==
[~2022-11-24] MED LIST changes: +ASCO100024 PO; -ENAL10TA16 PO; +ENLP10T PO; +LORA10CA PO; +TIMO5DRO16 OU; -TIMO5DRO5 OU; +ZINC50TA51 PO
--- NOTE | 2022-11-24 14:16 | Diagnostic Imaging Report ---
INDICATION: URINARY FREQUENCY DRY COUGH TYPE 2 DIABETES HYPERTENSION DIZZINESS COMPARISON: 03/16/2022 FINDINGS: Frontal and lateral views of the chest demonstrate normal heart size and pulmonary vascularity. The lungs are clear. There are no signs of infiltrate, pleural effusions or pneumothoraces. The visualized osseous structures show no acute abnormalities. IMPRESSION: 1. No acute process. No signs of infiltrates, effusions or pneumothoraces. Dictated by: Dictated on workstation # [id number]
== END ==
LOC: RAD 13:15
PROVIDERS: ATTEND Internal Medicine
DX: R05.8 Other specified cough (principal); E11.9 Type 2 diabetes mellitus without complications; I10 Essential (primary) hypertension; R42 Dizziness and giddiness
CPT/HCPCS: 71046

== ENCOUNTER → 2022-12-11 | Outpatient (CLI) | payer MEDICARE, OTHER | LOC: CARD 08:49 | PROVIDERS: ATTEND Internal Medicine Cardiovascular Disease | DX: I11.9 Hypertensive heart disease without heart failure (principal); I25.10 Atherosclerotic heart disease of native coronary artery without angina pectoris | CPT/HCPCS: 93306 ==